=== PATIENT | male | born 1970 | race Caucasian/White ===

== ENCOUNTER → 2020-06-15 08:30 | Outpatient (BNVA) | payer OTHER, SELFPAY | PROVIDERS: PCP Physician Assistant; Visit Provider Nurse Practitioner | DX: K70.0 Alcoholic fatty liver (principal); K21.9 Gastro-esophageal reflux disease without esophagitis; K59.04 Chronic idiopathic constipation; R14.0 Abdominal distension (gaseous) | CPT/HCPCS: 99212 ==

== ENCOUNTER 2020-06-30 08:58 | Outpatient (REF) | payer OTHER, SELFPAY ==
[2020-06-30 10:01] LABS: Hematocrit 43.1 % (42-52); Mean Corpuscular HGB Conc 32.5 g/dl (31.0-36.0); Mean Corpuscular Hemoglobin 28.6 pg (27.0-33.0); Mean Platelet Volume 10.2 fL (9.4-12.4); Platelet Count 301 X10*3/uL (160-400); Red Cell Distribution Width 14.9 % (11.0-16.0); White Blood Count 6.7 X10*3/uL (4.8-10.8)
[2020-06-30 10:07] LABS: Alanine Aminotransferase 41 U/L (0-40); Albumin Level 4.3 g/dL (3.5-5.0); Alkaline Phosphatase 84 U/L (39-117); Anion Gap 13 (12-20); Aspartate Amino Transferase 23 U/L (5-37); Bilirubin Direct 0.2 mg/dL (0.0-0.5); Bilirubin Total 0.6 mg/dL (0.0-1.0); Blood Urea Nitrogen 16 mg/dL (9-16); Calcium 9.1 mg/dL (8.4-10.2); Carbon Dioxide 28 mmol/L (22-29); Chloride 101 mmol/L (96-108); Cholesterol 186 mg/dL; Estimated Glomerular Filt Rate > 60; Glucose Fasting 102 mg/dL (60-99); HDL Cholesterol 41 mg/dL; LDL Cholesterol Calculated 110 mg/dl; Potassium 4.3 mmol/L (3.3-5.1); Sodium 138 mmol/L (135-145); Total Protein 6.9 g/dL (6.5-8.0); Triglycerides 177 mg/dL
[2020-06-30 10:08] LABS: Estimated Average Glucose 123 mg/dL; Hemoglobin A1c % 5.9 %
[2020-06-30 10:27] LABS: TSH reflex Free T4 0.75 uIU/mL (0.32-4.0)
[2020-06-30 10:51] LABS: Creatinine Urine 114.91 mg/dL; Microalbumin Urine < 5.0 mg/L
[2020-07-01 12:32] LABS: Alpha Fetoprotein 3.2 ng/mL (<6.1)
== END 2020-06-30 08:59 | disposition home or self-care (01) ==
LOC: HO.LAB 08:58
PROVIDERS: PCP Physician Assistant; Referring Provider Nurse Practitioner; Visit Provider Physician Assistant
DX: K70.0 Alcoholic fatty liver (principal); I10 Essential (primary) hypertension
CPT/HCPCS: 36415; 80053; 80061; 80076; 82043; 82105; 82248; 83036; 84443; 85027

== ENCOUNTER → 2020-07-30 12:52 | Outpatient (BNVA) | payer OTHER, SELFPAY | PROVIDERS: PCP Physician Assistant; Visit Provider Nurse Practitioner Family | DX: M47.27 Other spondylosis with radiculopathy, lumbosacral region (principal); G89.29 Other chronic pain | CPT/HCPCS: 99202 ==

== ENCOUNTER 2020-08-02 08:30 | Outpatient (REF) | payer OTHER, SELFPAY | END 2020-08-02 08:31 | disposition home or self-care (01) | LOC: HO.LAB 08:30 | PROVIDERS: PCP Physician Assistant; Visit Provider Nurse Practitioner Family | DX: Z13.89 Encounter for screening for other disorder (principal) ==

== ENCOUNTER → 2020-08-27 11:30 | Outpatient (BNVA) | payer OTHER, SELFPAY | PROVIDERS: PCP Physician Assistant; Visit Provider Nurse Practitioner Family | DX: M47.27 Other spondylosis with radiculopathy, lumbosacral region (principal); G89.29 Other chronic pain | CPT/HCPCS: 99212 ==

== ENCOUNTER 2020-09-02 08:46 | Outpatient (REF) | payer OTHER, SELFPAY ==
--- NOTE | ~2020-09-02 | XR_ITS ---
EXAMINATION: BILATERAL HIP X-RAY CLINICAL INFORMATION: Bilateral hip pain COMPARISON: None TECHNIQUE: 2 views of each hip FINDINGS: Bone alignment is normal. No fracture or dislocation is seen. The joint spaces are normal. Soft tissues are normal. XR/XR hip LT min 2V IMPRESSION: Normal hips.
--- NOTE | ~2020-09-02 | XR_ITS ---
EXAMINATION: BILATERAL HIP X-RAY CLINICAL INFORMATION: Bilateral hip pain COMPARISON: None TECHNIQUE: 2 views of each hip FINDINGS: Bone alignment is normal. No fracture or dislocation is seen. The joint spaces are normal. Soft tissues are normal. XR/XR hip RT min 2V IMPRESSION: Normal hips.
== END 2020-09-02 08:47 | disposition home or self-care (01) ==
LOC: HO.XRAY 08:46
PROVIDERS: PCP Physician Assistant; Visit Provider Nurse Practitioner Family
DX: M25.551 Pain in right hip (principal); M25.552 Pain in left hip
CPT/HCPCS: 73502

== ENCOUNTER 2020-09-10 08:28 | Outpatient (REF) | payer OTHER, SELFPAY ==
--- NOTE | ~2020-09-10 | US_ITS ---
EXAMINATION: US ABDOMEN COMPLETE CLINICAL INFORMATION: Alcoholic fatty liver. COMPARISON: Ultrasound abdomen complete 11/12/2019. CT abdomen and pelvis 03/11/2019. Ultrasound abdomen limited 03/03/2019. TECHNIQUE: Real-time imaging of the abdominal viscera. Technically limited study secondary to body habitus. FINDINGS: PANCREAS: Normal. ABDOMINAL AORTA: Not well visualized. INFERIOR VENA CAVA: Visualized portions are normal. LIVER: Liver echotexture is increased probably representing fatty infiltration. The liver is normal in size. The liver contour is normal. There is a 1.8 x 1.2 x 2.1 cm cyst in the right lobe of the liver that is stable. No other focal liver lesion is seen. There is no intrahepatic biliary duct dilatation seen. GALLBLADDER: Normal. The gallbladder is physiologically distended without evidence of stones, sludge, polyps, wall thickening or pericholecystic fluid. COMMON BILE DUCT: Normal in caliber measuring 0.4 cm in diameter. RIGHT KIDNEY: Normal. No hydronephrosis. No renal calculi or focal parenchymal lesions. The kidney measures 12.9 cm in maximum dimension. LEFT KIDNEY: Normal. No hydronephrosis. No renal calculi or focal parenchymal lesions. The kidney measures 12.4 cm in maximum dimension. SPLEEN: Normal. The spleen measures 9.2 cm in maximum dimension. The previously identified hyperechoic lesion in the spleen on prior ultrasound is not appreciated. FREE FLUID: None. US/US abdomen complete IMPRESSION: Echogenic liver suggestive of fatty infiltration. Small liver cyst. Limited visualization of the aorta.
== END 2020-09-10 08:29 | disposition home or self-care (01) ==
LOC: HO.HMGCX 08:28
PROVIDERS: Visit Provider Nurse Practitioner
DX: M47.27 Other spondylosis with radiculopathy, lumbosacral region (principal); M53.3 Sacrococcygeal disorders, not elsewhere classified; G89.29 Other chronic pain; K70.0 Alcoholic fatty liver
CPT/HCPCS: 76700; 99212

== ENCOUNTER → 2020-10-08 09:25 | Outpatient (BNVA) | payer OTHER, SELFPAY | PROVIDERS: PCP Physician Assistant; Visit Provider Nurse Practitioner Family | DX: M47.27 Other spondylosis with radiculopathy, lumbosacral region (principal); M53.3 Sacrococcygeal disorders, not elsewhere classified; G89.29 Other chronic pain | CPT/HCPCS: 99212 ==

== ENCOUNTER → 2020-11-09 08:58 | Outpatient (BNVA) | payer OTHER, SELFPAY | PROVIDERS: PCP Physician Assistant; Visit Provider Nurse Practitioner Family | DX: Z51.81 Encounter for therapeutic drug level monitoring (principal); M47.27 Other spondylosis with radiculopathy, lumbosacral region; M53.3 Sacrococcygeal disorders, not elsewhere classified; G89.29 Other chronic pain | CPT/HCPCS: 99212 ==

== ENCOUNTER 2020-11-16 06:37 | Outpatient (REF) | payer OTHER, SELFPAY ==
--- NOTE | ~2020-11-16 | FL_ITS ---
EXAMINATION: XR FLUOROSCOPY WITH IMAGES CLINICAL INFORMATION: M53.3 - Sacrococcygeal disorders, not elsewhere classified COMPARISON: None. TECHNIQUE: Fluoroscopy performed by Dr. Dennis Cifuentes. Fluoroscopy time: 0.2 minutes DAP: 5.47 Gycm2 Images: 2 FINDINGS: There are spinal needles overlying the lower aspect both sacroiliac joints. There is contrast seen in the soft tissues and likely early intra-articular contrast on each side. FL/FL guidance in treatment room IMPRESSION: Fluoroscopy for pain management procedures.
== END 2020-11-16 06:38 | disposition home or self-care (01) ==
LOC: HO.RADIR 06:37
PROVIDERS: Visit Provider Anesthesiology
DX: M53.3 Sacrococcygeal disorders, not elsewhere classified (principal); M47.27 Other spondylosis with radiculopathy, lumbosacral region; G89.29 Other chronic pain; F17.210 Nicotine dependence, cigarettes, uncomplicated
CPT/HCPCS: 27096; J3300; Q9967

== ENCOUNTER → 2020-11-29 10:53 | Outpatient (BNVA) | payer OTHER, SELFPAY | PROVIDERS: PCP Physician Assistant; Referring Provider Physician Assistant; Visit Provider Physician Assistant | DX: Z01.818 Encounter for other preprocedural examination (principal); E66.01 Morbid (severe) obesity due to excess calories; I10 Essential (primary) hypertension; E78.5 Hyperlipidemia, unspecified; G47.33 Obstructive sleep apnea (adult) (pediatric); K21.9 Gastro-esophageal reflux disease without esophagitis; F10.21 Alcohol dependence, in remission; F17.210 Nicotine dependence, cigarettes, uncomplicated; Z68.41 Body mass index [BMI] 40.0-44.9, adult; Z88.8 Allergy status to other drugs, medicaments and biological substances | CPT/HCPCS: 99202 ==

== ENCOUNTER → 2020-12-07 08:45 | Outpatient (BNVA) | payer OTHER, SELFPAY | PROVIDERS: PCP Physician Assistant; Visit Provider Nurse Practitioner Family | DX: Z51.81 Encounter for therapeutic drug level monitoring (principal); M47.27 Other spondylosis with radiculopathy, lumbosacral region; M53.3 Sacrococcygeal disorders, not elsewhere classified; G89.29 Other chronic pain | CPT/HCPCS: 99212 ==

== ENCOUNTER 2020-12-14 | Outpatient (REF) | payer OTHER, SELFPAY ==
[2020-12-15 11:04] LABS: H Pylori Breath Test Negative (Negative)
== END 2020-12-14 00:01 | disposition home or self-care (01) ==
LOC: HO.LNP
PROVIDERS: Visit Provider Physician Assistant
DX: Z11.0 Encounter for screening for intestinal infectious diseases (principal)
CPT/HCPCS: 83013

== ENCOUNTER → 2020-12-14 09:48 | Outpatient (REF) | payer OTHER, SELFPAY ==
--- NOTE | ~2020-12-14 | XR_ITS ---
EXAMINATION: XR CHEST CLINICAL INFORMATION: Morbid/severe obesity due to excess calories. COMPARISON: None TECHNIQUE: 2 views of the chest were obtained. FINDINGS: The lungs are well-expanded and clear. The heart size and pulmonary vascularity is normal. No gross bony abnormality seen. XR/XR chest 2V IMPRESSION: Unremarkable chest exam.
--- NOTE | 2020-12-14 10:48 | ECG_ITS ---
Test Reason : E66.01 Blood Pressure : / mmHG Vent. Rate : 076 BPM Atrial Rate : 076 BPM P-R Int : 164 ms QRS Dur : 084 ms QT Int : 398 ms P-R-T Axes : 058 049 052 degrees QTc Int : 447 ms Normal sinus rhythm Normal ECG No previous ECGs available Referred By: Isi Felipe Electronically Signed By:LORE CARRASCO
== END ==
LOC: HO.CARD 09:48
PROVIDERS: PCP Physician Assistant; Referring Provider Physician Assistant; Visit Provider Physician Assistant
DX: Z01.818 Encounter for other preprocedural examination (principal); Z11.0 Encounter for screening for intestinal infectious diseases; E66.01 Morbid (severe) obesity due to excess calories
CPT/HCPCS: 71046; 93005; 99211

== ENCOUNTER 2020-12-15 08:53 | Outpatient (REF) | payer OTHER, SELFPAY ==
[2020-12-15 09:21] LABS: MANUAL DIFF FLAG NO
[2020-12-15 09:51] LABS: Basophils Percent Auto 0.1 % (0-2); Eosinophils Absolute Auto 0.1 X10*3/uL (0.0-0.4); Eosinophils Percent Auto 1.5 % (0-4); Hematocrit 42.6 % (42-52); Hemoglobin 13.8 g/dl (14.0-18.0); Imm Gran Abs Auto 0.04 X10*3/uL (0.00-0.03); Imm Gran Pct Auto 0.5 % (0.0-0.4); Lymphocytes Absolute Auto 1.8 X10*3/uL (1.2-4.9); Lymphocytes Percent Auto 24.1 % (20-40); Mean Corpuscular HGB Conc 32.4 g/dl (31.0-36.0); Mean Corpuscular Hemoglobin 28.3 pg (27.0-33.0); Mean Corpuscular Volume 87.3 fL (80-98); Monocytes Absolute Auto 0.6 X10*3/uL (0.1-1.2); Monocytes Percent Auto 8.2 % (2-11); Neutrophils Absolute Auto 4.9 X10*3/uL (2.0-8.3); Neutrophils Percent Auto 65.6 % (45-73); Platelet Count 298 X10*3/uL (160-400); Red Blood Count 4.88 X10*6/uL (4.60-5.80); Red Cell Distribution Width 14.7 % (11.0-16.0); White Blood Count 7.5 X10*3/uL (4.8-10.8)
[2020-12-15 10:11] LABS: Alanine Aminotransferase 36 U/L (0-40); Albumin Level 4.4 g/dL (3.5-5.0); Alkaline Phosphatase 104 U/L (39-117); Anion Gap 13 (12-20); Aspartate Amino Transferase 20 U/L (5-37); Bilirubin Total 0.4 mg/dL (0.0-1.0); Blood Urea Nitrogen 16 mg/dL (9-16); C Reactive Protein 1.88 mg/dL (< or = 0.50); Calcium 9.5 mg/dL (8.4-10.2); Carbon Dioxide 29 mmol/L (22-29); Chloride 103 mmol/L (96-108); Cholesterol 222 mg/dL; Estimated Glomerular Filt Rate > 60; Glucose Fasting 107 mg/dL (60-99); HDL Cholesterol 40 mg/dL; Iron 45 mcg/dL (45-160); LDL Cholesterol Calculated 133 mg/dl; Percent Iron Saturation 10 % (15-50); Potassium 5.1 mmol/L (3.3-5.1); Sodium 140 mmol/L (135-145); Total Iron Binding Capacity 430 mcg/dL (228-428); Total Protein 7.2 g/dL (6.5-8.0); Triglycerides 246 mg/dL; Unsaturated Iron Binding 385 ug/dL
[2020-12-15 10:33] LABS: Creatinine Urine 154.51 mg/dL; Microalbum/Creatinine Ratio Ur 3.2 ug/mg cr
[2020-12-15 10:33] LABS: TSH reflex Free T4 0.83 uIU/mL (0.32-4.0); Vitamin D 25-OH Total 26.9 ng/mL (>30)
[2020-12-15 10:37] LABS: Folate 8.7 ng/mL (> or = 4.0); Vitamin B12 297 pg/mL (200-900)
[2020-12-15 10:45] LABS: Estimated Average Glucose 126 mg/dL; Hemoglobin A1C 150.5981 umol/L
[2020-12-15 11:24] LABS: Ferritin 31 ng/mL (20-250)
[2020-12-17 12:50] LABS: Calcium (PTHI) 9.3 mg/dL (8.6-10.3); PTHI 53 pg/mL (14-64)
[2020-12-19 00:27] LABS: Zinc 70 mcg/dL (60-130)
[2020-12-20 10:42] LABS: Vitamin B1 <6 nmol/L (8-30)
[2020-12-22 04:36] LABS: Vitamin A 47 mcg/dL (38-98)
== END 2020-12-15 08:54 | disposition home or self-care (01) ==
LOC: HO.LAB 08:53
PROVIDERS: PCP Physician Assistant; Visit Provider Physician Assistant
DX: Z01.818 Encounter for other preprocedural examination (principal); E66.01 Morbid (severe) obesity due to excess calories; I10 Essential (primary) hypertension; R73.09 Other abnormal glucose
CPT/HCPCS: 36415; 80053; 80061; 82043; 82306; 82607; 82728; 82746; 83036; 83540; 83970; 84425; 84443; 84590; 84630; 85025; 86140

== ENCOUNTER → 2020-12-17 10:18 | Outpatient (BNVA) | payer OTHER, SELFPAY | PROVIDERS: PCP Physician Assistant; Referring Provider Physician Assistant; Visit Provider Physician Assistant | DX: E66.01 Morbid (severe) obesity due to excess calories (principal) | CPT/HCPCS: 99212 ==

== ENCOUNTER → 2020-12-27 13:54 | Outpatient (BNVA) | payer OTHER, SELFPAY | PROVIDERS: PCP Physician Assistant; Visit Provider Anesthesiology | DX: M47.27 Other spondylosis with radiculopathy, lumbosacral region (principal); G89.29 Other chronic pain; M53.3 Sacrococcygeal disorders, not elsewhere classified; E66.9 Obesity, unspecified; F17.200 Nicotine dependence, unspecified, uncomplicated; Z68.41 Body mass index [BMI] 40.0-44.9, adult; Z88.8 Allergy status to other drugs, medicaments and biological substances | CPT/HCPCS: 99212 ==

== ENCOUNTER → 2020-12-28 08:03 | Outpatient (BNVA) | payer OTHER, SELFPAY | PROVIDERS: PCP Physician Assistant; Visit Provider Physician Assistant | DX: E66.01 Morbid (severe) obesity due to excess calories (principal); F17.200 Nicotine dependence, unspecified, uncomplicated | CPT/HCPCS: 97802 ==

== ENCOUNTER 2021-01-04 09:53 | Outpatient (REF) | payer OTHER, SELFPAY ==
--- NOTE | ~2021-01-04 | FL_ITS ---
EXAMINATION: XR GI SERIES CLINICAL INFORMATION: Obesity COMPARISON: None TECHNIQUE: Upper GI was performed using thin and thick barium and effervescent granules. FINDINGS: Esophageal motility is normal. There is mild gastroesophageal reflux. No hernia seen. The stomach and duodenum are normal-appearing. No fold thickening, mass, ulcer or stricture is seen. FLUOROSCOPY TIME: 0.7 minutes DOSE AREA PRODUCT: 9.3 denis per centimeter squared. 23 saved fluoroscopic images. FL/FL upper GI series IMPRESSION: Mild gastroesophageal reflux otherwise unremarkable exam.
--- NOTE | ~2021-01-04 | US_ITS ---
EXAMINATION: US COMPLETE ABDOMEN WITH LIVER ELASTOGRAPHY CLINICAL INFORMATION: Obesity. COMPARISON: 09/10/2020 and 11/12/[address] scan of 03/11/2019 TECHNIQUE: Real-time imaging of the abdominal viscera. Noninvasive ultrasound liver fibrosis assessment is performed using Jayna ElastPQ point quantification shear wave elastography (pSWE) with a C5-2 MHz transducer. Multiple elastography samples are obtained. FINDINGS: PANCREAS: Normal. The visualized pancreatic head and body are normal in appearance. The remainder of the pancreas is obscured from visualization by the overlying bowel gas. ABDOMINAL AORTA: The visualized portions of the proximal, middle, and distal aortic segments are normal in caliber. INFERIOR VENA CAVA: Visualized portions are normal. LIVER: There is diffusely increased echogenicity consistent with fatty infiltration. Within the right lobe of the liver, there is a 2.2 x 1.4 x 2.0 cm hypoechoic structure without internal vascularity which on previous study measured 2.1 cm in largest dimension likely representing a cyst. No intrahepatic biliary duct dilatation. The right lobe measures 19 cm in length. The left lobe measures 9.5 cm in length. Portal flow is hepatopedal. Shear wave liver elastography median stiffness is 1.17 m/s (reference: normal median stiffness is 1.3 m/s or less). IQR/median stiffness to assess sampling precision is 0.16 (reference: good quality data set is IQR/median stiffness of 0.15 or less). GALLBLADDER: Normal. The gallbladder is physiologically distended without evidence of stones, sludge, polyps, wall thickening or pericholecystic fluid. COMMON BILE DUCT: Normal in caliber measuring 0.5 cm in diameter. RIGHT KIDNEY: Normal. No hydronephrosis. No renal calculi or focal parenchymal lesions. The kidney measures 12.7 cm in maximum dimension. LEFT KIDNEY: There are some echogenic foci seen bilaterally likely related to calcified vessels/vessel interface. No hydronephrosis. No focal parenchymal lesions. The kidney measures 11.7 cm in maximum dimension. SPLEEN: Normal. The spleen measures 9.1 cm in maximum dimension. FREE FLUID: None. US/US abdomen comp w elastography IMPRESSION: 1. Hepatic cyst. Diffusely increased hepatic echogenicity consistent with fatty infiltration. 2. Liver elastography: Although measurements suggest a high probability of normal liver stiffness, there is statistical variability of the sampling which decreases accuracy. REFERENCE: Society of Radiologists in Ultrasound Liver Stiffness Thresholds (2020): LIVER STIFFNESS THRESHOLDS: *Liver Stiffness equal or less than 1.3 m/s: High probability of being normal. *Liver Stiffness less than 1.7 m/s: In the absence of other known clinical signs, rules out compensated advanced chronic liver disease. *Liver Stiffness 1.7-2.1 m/s: Suggestive of compensated advanced chronic liver disease but need further test for confirmation. *Liver Stiffness over 2.1 m/s: Rules in compensated advanced chronic liver disease. *Liver Stiffness over 2.4 m/s: Suggestive of clinically significant portal hypertension. QUALITY OF DATA SET: *IQR/Median value equal or less than 0.15 implies a quality data set. *IQR/Median value over 0.15 implies a poor quality data set. SIGNIFICANT CHANGE FROM PRIOR EXAM: Significant change if liver stiffness measurement is 10% or greater from prior exam. OTHER CONSIDERATIONS: The stage of liver fibrosis may be overestimated in the setting of acute hepatitis, liver inflammation, elevated liver function tests, hepatic vascular congestion, obstructive cholestasis, non-fasting state, and infiltrative diseases such as amyloidosis and lymphoma. In some patients with NAFLD, the liver stiffness thresholds for compensated advanced chronic liver disease may be lower. In causes other than viral hepatitis and NAFLD, liver stiffness thresholds are not well established.
== END 2021-01-04 09:54 | disposition home or self-care (01) ==
LOC: HO.US 09:53
PROVIDERS: Visit Provider Surgery
DX: Z01.818 Encounter for other preprocedural examination (principal); E66.01 Morbid (severe) obesity due to excess calories; K21.9 Gastro-esophageal reflux disease without esophagitis
CPT/HCPCS: 74240; 76705; 76981

== ENCOUNTER → 2021-01-05 08:03 | Outpatient (BNVA) | payer OTHER, SELFPAY | PROVIDERS: PCP Physician Assistant; Visit Provider Surgery ==

== ENCOUNTER → 2021-01-11 08:01 | Outpatient (BNVA) | payer OTHER, SELFPAY | PROVIDERS: PCP Physician Assistant; Referring Provider Surgery; Visit Provider Dietitian, Registered | DX: E66.01 Morbid (severe) obesity due to excess calories (principal) | CPT/HCPCS: 97803 ==

== ENCOUNTER → 2021-01-17 08:03 | Outpatient (BNVA) | payer OTHER, SELFPAY | PROVIDERS: PCP Physician Assistant; Visit Provider Physician Assistant ==

== ENCOUNTER → 2021-01-19 08:35 | Outpatient (BNVA) | payer OTHER, SELFPAY | PROVIDERS: PCP Physician Assistant; Referring Provider Physician Assistant; Visit Provider Physician Assistant Surgical ==

== ENCOUNTER → 2021-01-24 11:34 | Outpatient (BNVA) | payer OTHER, SELFPAY | PROVIDERS: Visit Provider Anesthesiology ==

== ENCOUNTER 2021-02-01 06:40 | Outpatient (REF) | payer OTHER, SELFPAY ==
--- NOTE | ~2021-02-01 | FL_ITS ---
EXAMINATION: XR FLUOROSCOPY WITH IMAGES CLINICAL INFORMATION: M47.27 - Other spondylosis with radiculopathy, lumbosacral. COMPARISON: None. TECHNIQUE: Fluoroscopy performed by Dr. Dennis Cifuentes. Fluoroscopy time: 0.4 minutes DAP: 10.1 Gycm2 Images: 4 FINDINGS: There are spinal needles overlying the outer right L2, L3, L4, and L5 neural foramen. There is contrast seen in the respective nerve sheaths. Some early transforaminal epidural extension is suggested. No visible vascular communication. FL/FL guidance in treatment room IMPRESSION: Fluoroscopy for pain management procedures.
== END 2021-02-01 06:41 | disposition home or self-care (01) ==
LOC: HO.RADIR 06:40
PROVIDERS: Visit Provider Anesthesiology
DX: M47.27 Other spondylosis with radiculopathy, lumbosacral region (principal); G89.29 Other chronic pain; M53.3 Sacrococcygeal disorders, not elsewhere classified; F17.210 Nicotine dependence, cigarettes, uncomplicated
CPT/HCPCS: 64493; 64494; 64495; Q9967

== ENCOUNTER → 2021-02-02 08:15 | Outpatient (BNVA) | payer OTHER, SELFPAY | PROVIDERS: Visit Provider Surgery ==

== ENCOUNTER → 2021-02-09 08:32 | Outpatient (BNVA) | payer OTHER, SELFPAY | PROVIDERS: Visit Provider Anesthesiology | DX: M47.27 Other spondylosis with radiculopathy, lumbosacral region (principal); M53.3 Sacrococcygeal disorders, not elsewhere classified; G89.29 Other chronic pain | CPT/HCPCS: 99212 ==

== ENCOUNTER → 2021-02-10 08:05 | Outpatient (BNVA) | payer OTHER, SELFPAY | PROVIDERS: Referring Provider Surgery; Visit Provider Dietitian, Registered | DX: E66.9 Obesity, unspecified (principal) | CPT/HCPCS: 97803 ==

== ENCOUNTER → 2021-02-11 07:23 | Outpatient (BNVA) | payer OTHER, SELFPAY | PROVIDERS: Visit Provider Surgery ==

== ENCOUNTER → 2021-02-23 10:06 | Outpatient (BNVA) | payer OTHER, SELFPAY | PROVIDERS: Visit Provider Anesthesiology | DX: Z51.81 Encounter for therapeutic drug level monitoring (principal); M47.27 Other spondylosis with radiculopathy, lumbosacral region; M53.3 Sacrococcygeal disorders, not elsewhere classified; G89.29 Other chronic pain | CPT/HCPCS: 99212 ==

== ENCOUNTER 2021-03-01 14:10 | Outpatient (REF) | payer OTHER, SELFPAY | END 2021-03-01 14:11 | disposition home or self-care (01) | LOC: HO.LNP 14:10 | PROVIDERS: Visit Provider Nurse Practitioner Family | DX: U07.1 COVID-19 (principal); Z20.822 Contact with and (suspected) exposure to COVID-19 | CPT/HCPCS: U0003; U0005 ==

== ENCOUNTER → 2021-03-17 08:20 | Outpatient (BNVA) | payer OTHER, SELFPAY | PROVIDERS: Visit Provider Anesthesiology | DX: Z51.81 Encounter for therapeutic drug level monitoring (principal); M47.27 Other spondylosis with radiculopathy, lumbosacral region; G89.29 Other chronic pain; M53.3 Sacrococcygeal disorders, not elsewhere classified | CPT/HCPCS: 99212 ==

== ENCOUNTER → 2021-03-18 07:35 | Outpatient (BNVA) | payer OTHER, SELFPAY | PROVIDERS: PCP Internal Medicine; Visit Provider Surgery ==

== ENCOUNTER → 2021-03-24 09:13 | Outpatient (BNVA) | payer OTHER, SELFPAY | PROVIDERS: PCP Internal Medicine; Referring Provider Internal Medicine; Visit Provider Physician Assistant Surgical ==

== ENCOUNTER → 2021-04-15 08:06 | Outpatient (BNVA) | payer OTHER, SELFPAY | PROVIDERS: PCP Internal Medicine; Visit Provider Surgery ==

== ENCOUNTER 2021-05-03 06:00 | Outpatient (REF) | payer OTHER, SELFPAY ==
--- NOTE | ~2021-05-03 | FL_ITS ---
EXAMINATION: XR FLUOROSCOPY WITH IMAGES CLINICAL INFORMATION: Spondylosis with radiculopathy. COMPARISON: None. TECHNIQUE: Fluoroscopy performed by Nina Redman. Fluoroscopy time: 0.9 minutes DAP: 19.6 Gycm2 Images: 8 FINDINGS: There are needles positioned bilaterally adjacent to L5-S1, L4-L5 and L3-L4 facet joints with contrast opacifying the soft tissues. Visualized vertebral heights, alignment appears normal. The disc heights are preserved. No lytic or sclerotic process seen. FL/FL guidance in treatment room IMPRESSION: Fluoroscopy was provided to referring physician for pain management.
== END 2021-05-03 06:01 | disposition home or self-care (01) ==
LOC: HO.RADIR 06:00
PROVIDERS: Visit Provider Anesthesiology
DX: M47.27 Other spondylosis with radiculopathy, lumbosacral region (principal); G89.29 Other chronic pain; M53.3 Sacrococcygeal disorders, not elsewhere classified
CPT/HCPCS: 64493; 64494; 64495; Q9967

== ENCOUNTER → 2021-05-09 16:40 | Outpatient (BNVA) | payer OTHER, SELFPAY | PROVIDERS: PCP Internal Medicine; Visit Provider Anesthesiology ==

== ENCOUNTER → 2021-05-13 08:09 | Outpatient (BNVA) | payer OTHER, SELFPAY | PROVIDERS: PCP Internal Medicine; Visit Provider Surgery ==

== ENCOUNTER → 2021-05-19 08:45 | Outpatient (BNVA) | payer OTHER, SELFPAY | PROVIDERS: PCP Internal Medicine; Visit Provider Anesthesiology | DX: G89.29 Other chronic pain (principal); M53.3 Sacrococcygeal disorders, not elsewhere classified; M47.27 Other spondylosis with radiculopathy, lumbosacral region; Z79.891 Long term (current) use of opiate analgesic | CPT/HCPCS: 99212 ==

== ENCOUNTER 2021-06-07 08:41 | Day surgery (SDC) | payer OTHER, SELFPAY ==
--- NOTE | ~2021-06-07 | FL_ITS ---
EXAMINATION: XR FLUOROSCOPY WITH IMAGES CLINICAL INFORMATION: Medial branch RFA. COMPARISON: None. TECHNIQUE: Fluoroscopy performed by Dr. Dennis Cifuentes. Fluoroscopy time: 0.9 minutes DAP: 6.94 mGycm2 Images: 3 FINDINGS: There are needles placed on the right aspect of right L3, L4, L5 and S1 pedicles for pain management purposes. Visualized bones and the intervening disc heights are maintained normal. FL/FL guidance in OR IMPRESSION: Fluoroscopy guidance was provided to referring physician for pain management.
--- NOTE | 2021-06-08 07:40 | P.HPSUR_ITS ---
Pre-Procedural Eval Section A Date of Service: 06/08/21 The patient is an INPATIENT: No Changes since office visit: Yes Patient answered all questions The History & Physical has been completed within 30 days and I have reviewed it.: No Section B Chief Complaint: Other spondylosis with radiculopathy, lumbosacral Details of Present Illness: As above Relevant Family History (Specify if Yes): No Relevant Social History: None Present Medications: see Short Stay Collaborative assessment Medical History: No relevant PMH History of Previous Operations: No relevant previous surgery Allergies: Allergies Allergy/AdvReac Type Severity Reaction Status Date / Time dexamethasone Allergy Unknown vomitting Verified 05/09/21 16:41 Review of Systems Sugical H&P ROS: Negative: Cardiovascular, Respiratory, Neurological, Psychiatric, Hem-Onc, Allergic/Immunologic, Gastrointestinal, Genitourinary, Integumentary, Endocrine and Eyes/Ears/Nose/Throat and Yes, Specify: Constitu tion (Morbid obesity) and Musculoskeletal (As above) Exam Surgical H&P Exam: Normal: HEENT, Normal: Heart, Normal: Lungs, Normal: Extremities, Normal: Skin and Normal: Neurological and Significant Findings: Abdomen (Enlarged secondary to obesity) Plan Diagnosis/Plan: Unchanged I have reviewed the history and physical and performed a pertinent physical examination on my patient. No changes have occurred unless specified.
--- NOTE | 2021-06-08 07:44 | P.BOP_ITS ---
Brief Operative Note Date of Service: 06/07/21 Pre-op diagnosis: Spondylosis lumbar spine Post-op diagnosis: same Procedure: Radiofrequency ablation L2-L3 L4 dorsal ramus L5 medial branch nerves on the right Implants: None Surgeon: Dennis Cifuentes MD Anesthesia: local Was an Supervisor Laundry used for this Procedure?: No Estimated blood loss (mL): 0 Pathology: none sent Condition: stable Disposition: other (Through the office discharge system)
--- NOTE | 2021-06-08 07:46 | P.OP_ITS ---
Operative Note Operative Note Date of Service: 06/07/21 Narrative: Radiofrequency ablation L2-L3 L4 dorsal ramus L5 medial branches on the right. Informed consent was explained to the patient. All questions were explained and answered.? The patient was taken inside of the operating room where she was positioned prone on the operating table.? Time-out was performed delineating patient's name and date of , correct site, side, the nature of the procedur e, patient's allergy, preoperative antibiotic if needed.? All operating room staff was participating in OR time-out procedure.? His lower back was prepped with ChloraPrep and draped with sterile towels.? Sterilely draped C-arm was brought over the operating field and sq picture of L3, L4-, L5 vertebra as and S1 vertebra were delineated on the screen.? Points of interest were delineated as connection of superior articular process of L3, L4 and L5 vertebra on the right with corresponding transverse processes as well as connection of the sacral alae on the right with superior articular process of S1.? The projection of the point of interest to the skin were injected with the small amount of local anesthetic lidocaine 2% 1-1.5 cc.? And after that 18 gauge 145 mm radiofrequency cannulas were driven to the point of interest in tunnel vision fashion under oblique view with solution strategist of the C-arm tilted 5? to the feet.? After needles gently contacted the bone at the point of interests the sty lets were removed from the needles and electrodes were inserted into the needles.? Electrodes were connected to the radiofrequency machine and testing was performed for the patient's sensory and motor function.? There were no pathological motor response indicating stimulation of somatic nerves.? After that electrodes were removed and each needle was injected with small amount of bupivacaine 0.5% 1-1.5 cc mixed with trace amount of Kenalog.? Upon completion of the injections the electrodes were reinserted and energy of 80 degree centigrade for 90 seconds was applied to each needle.? Upon completion of the energy application the needles were rotated 180? and energy applied with the same temperature and with the same time.? Upon completion of the injections needles were removed and sterile dressings were applied, patient taken outside of the operating room to recovery room where he recovered uneventfully.
== END 2021-06-07 09:00 | disposition home or self-care (01) ==
PROVIDERS: PCP Physician Assistant; Visit Provider Anesthesiology
PROC: (CPT 64635; principal; 2021-06-07 07:30)
DX: M47.817 Spondylosis without myelopathy or radiculopathy, lumbosacral region (principal)
CPT/HCPCS: 64635; 64636; J3300

== ENCOUNTER → 2021-06-13 08:09 | Outpatient (BNVA) | payer OTHER, SELFPAY | PROVIDERS: PCP Internal Medicine; Visit Provider Surgery | DX: E66.01 Morbid (severe) obesity due to excess calories (principal); Z68.37 Body mass index [BMI] 37.0-37.9, adult; G89.29 Other chronic pain; M53.3 Sacrococcygeal disorders, not elsewhere classified; M47.27 Other spondylosis with radiculopathy, lumbosacral region; Z79.891 Long term (current) use of opiate analgesic | CPT/HCPCS: 99212 ==

== ENCOUNTER → 2021-06-29 08:05 | Outpatient (BNVA) | payer OTHER, SELFPAY | PROVIDERS: PCP Internal Medicine; Visit Provider Surgery | DX: Z13.89 Encounter for screening for other disorder (principal) ==

== ENCOUNTER → 2021-07-01 13:02 | Outpatient (BNVA) | payer OTHER, SELFPAY | PROVIDERS: PCP Internal Medicine; Visit Provider Surgery | DX: Z13.89 Encounter for screening for other disorder (principal) ==

== ENCOUNTER 2021-07-12 06:22 | Inpatient (IN) | payer OTHER, SELFPAY ==
[2021-07-01 10:17] VITALS: BMI 35.9
[2021-07-07 11:59] LABS: MANUAL DIFF FLAG NO
[2021-07-07 12:38] LABS: Basophils Percent Auto 0.4 % (0-2); Eosinophils Absolute Auto 0.1 X10*3/uL (0.0-0.4); Hematocrit 43.3 % (42.0-52.0); Hemoglobin 14.4 g/dl (14.0-18.0); Imm Gran Abs Auto 0.02 X10*3/uL (0.00-0.03); Imm Gran Pct Auto 0.3 % (0.0-0.4); Lymphocytes Absolute Auto 2.4 X10*3/uL (1.2-4.9); Lymphocytes Percent Auto 33.9 % (20-40); Mean Corpuscular HGB Conc 33.3 g/dl (31.0-36.0); Mean Corpuscular Hemoglobin 29.1 pg (27.0-33.0); Mean Corpuscular Volume 87.7 fL (80.0-98.0); Mean Platelet Volume 9.9 fL (9.4-12.4); Monocytes Absolute Auto 0.6 X10*3/uL (0.1-1.2); Monocytes Percent Auto 8.7 % (2-11); Neutrophils Percent Auto 55.7 % (45-73); Platelet Count 273 X10*3/uL (160-400); Red Blood Count 4.94 X10*6/uL (4.60-5.80); Red Cell Distribution Width 13.3 % (11.0-16.0); White Blood Count 7.2 X10*3/uL (4.8-10.8)
[2021-07-07 12:40] LABS: Prothrombin Time 11.2 SEC (9.9-13.0)
[2021-07-07 12:43] LABS: Partial Thromboplastin Time 37.4 SEC (24.1-38.0)
[2021-07-07 13:07] LABS: Alanine Aminotransferase 24 U/L (0-40); Albumin Level 4.4 g/dL (3.5-5.0); Alkaline Phosphatase 85 U/L (39-117); Anion Gap 14 (12-20); Aspartate Amino Transferase 21 U/L (5-37); Bilirubin Total 0.6 mg/dL (0.0-1.0); Blood Urea Nitrogen 17 mg/dL (9-16); C Reactive Protein 1.59 mg/dL (< or = 0.50); Calcium 9.6 mg/dL (8.4-10.2); Carbon Dioxide 27 mmol/L (22-29); Chloride 100 mmol/L (96-108); Cholesterol 189 mg/dL; Creatinine Clr Calc Pharmacy 111.4; Estimated Glomerular Filt Rate > 60; Glucose Random 89 mg/dL (60-115); HDL Cholesterol 40 mg/dL; LDL Cholesterol Calculated 131 mg/dl; Potassium 3.9 mmol/L (3.3-5.1); Sodium 137 mmol/L (135-145); Triglycerides 93 mg/dL
[2021-07-07 13:19] LABS: Estimated Average Glucose 120 mg/dL; Hemoglobin A1c % 5.8 %
[2021-07-07 13:30] LABS: Insulin 19 uU/mL (2-29); TSH reflex Free T4 1.19 uIU/mL (0.32-4.0)
--- NOTE | 2021-07-09 15:36 | MHC.SHP ---
Pre-Procedural Eval Section A Date of Service: 07/09/21 The patient is an INPATIENT: Yes The History & Physical has been completed within 30 days and I have reviewed it.: No Section B Chief Complaint: obesity Relevant Family History (Specify if Yes): No Relevant Social History: None Present Medications: None Medical History: No relevant PMH History of Previous Operations: No relevant previous surgery Allergies: Allergies Allergy/AdvReac Type Severity Reaction Status Date / Time dexamethasone AdvReac Severe severe Verified 07/01/21 10:16 joint pain (did not wean off) Review of Systems Sugical H&P ROS: Negative: Constitution, Cardiovascular, Respiratory, Neurological, Psychiatric, Hem-Onc, Allergic/Immunologic, Gastrointestinal, Genitourinary, Musculoskeletal, Integumentary, Endocrine and Eyes/Ears/Nose/Throat Exam Surgical H&P Exam: Normal: HEENT, Normal: Heart, Normal: Lungs, Normal: Extremities, Normal: Abdomen, Normal: Skin and Normal: Neurological Plan Diagnosis/Plan: Unchanged I have reviewed the history and physical and performed a pertinent physical examination on my patient. No changes have occurred unless specified.
--- NOTE | 2021-07-11 10:20 | HO.ANESPROP2 ---
Documented by User: Radha Gunter NP 07/11/21 10:22 HPI - Anesthesia Eval Consult details Narrative: 51yo M for Gastrectomy Sleeve,EGD,possible diaphragmatic hernia,possible ventral hernia,possible open Hx ETOH, none since 2018, buprenorphine tx PMFSH Active Problems Active Problems: All Active Problems (Updated 07/01/21 @ 10:15 by Isabel Ngo, RN) Allergic rhinitis (Acute) HLD (hyperlipidemia) (Acute) HTN (hypertension) (Acute) Impaired glucose metabolism (Acute) Lumbar disc disease with radiculopathy (Acute) Chronic idiopathic constipation (Acute) Abdominal bloating (Acute) GERD (gastroesophageal reflux disease) (Acute) Alcoholic fatty liver (Acute) Spondylosis of lumbosacral spine with radiculopathy (Acute) Chronic pain (Acute) Left hip pain (Acute) Right hip pain (Acute) Sacroiliac joint pain (Acute) Otitis media (Acute) Ear discomfort (Acute) Smoker (Acute) Open humeral fracture (Acute) Allergic rhinitis (Acute) Asthma (Acute) BANG on CPAP (Acute) Morbid obesity (Acute) Pre-op evaluation (Acute) Binge eating disorder (Acute) Moderately severe major depressive disorder, single episode (Acute) Non-insulin dependent type 2 diabetes mellitus (Acute) Vitamin B12 deficiency (Acute) SARS-CoV-2 positive (Acute) Exposure to COVID-19 virus (Acute) Loss of sense of smell (Acute) Annual physical exam (Acute) Obese (Acute) BMI 38.0-38.9,adult (Acute) BMI 37.0-37.9, adult (Acute) BMI 36.0-36.9,adult (Acute) Obesity (Acute) Past Medical History Medical History (Updated 07/01/21 @ 10:15 by Isabel Ngo, ANDREA) Alcohol dependence Anxiety Asthma COVID-19 vaccine series completed Depression Elevated cholesterol GERD (gastroesophageal reflux disease) History of COVID-19 Lumbar disc disease Obesity Otitis externa Sleep apnea Type 2 diabetes mellitus Family History Family History Father Hypertension CVD (cardiovascular disease) Mother CVD (cardiovascular disease) Lymph node cancer Lymphoma Sister Arthritis in Crohn's disease Sister Heart disease CVD (cardiovascular disease) Migraine Brother IBS (irritable bowel syndrome) Surgical History Surgical History (Updated 04/22/22 @ 10:13 by Isabel Ngo RN) Fracture of surgical neck of humerus History of umbilical hernia repair Hx of colonoscopy Social History Social History Household Members: Significant Other and Children Housing: Apartment Are you a primary health care coach to a significant other at home: No Do you presently have visiting nurse or other home services: No Alcohol intake: former Year quit: 2018 Patient Tobacco Use Status: Former Tobacco user Quit Date: 02/2021 Tobacco use type: Cigarette Cigarette Packs Per Day: 1 Cigarettes Per Day: 20.0 Years Smoked: 35 e-Cigarette/Vaping Use: Never Used Second Hand Smoke Exposure: No Use of substances other than those prescribed or required for medical reasons: No Have you been hit, kicked, punched, or otherwise hurt by someone within the past year? If so, by whom?: No Are you DNR?: No Advance Directives Information Provided: Yes (as above noted-brochure mailed also) Advance Directives on File: No Recently lost weight without trying: No Eating poorly because of decreased appetite: No Nutrition Risks: No Nutritional Risk Poor oral hygiene: No service: No Current occupational status: unemployed and disabled Cognitive needs: Yes (Cane) Hearing needs: No Vision needs: No Meds Allergies Allergy/AdvReac Type Severity Reaction Status Date / Time dexamethasone AdvReac Severe severe Verified 07/01/21 10:16 joint pain (did not wean off) Home Medications Medication Instructions Recorded Confirmed Last Taken Type buspirone 10 mg tablet 10 mg PO TID tab 07/14/20 07/01/21 07/12/21 History citalopram 40 mg tablet 40 mg PO DAILY 07/14/20 07/01/21 07/12/21 History bupropion HCl 75 mg tablet 150 mg PO DAILY 11/29/20 07/01/21 07/12/21 History metformin 500 mg tablet,extended 500 mg PO QAM 07/01/21 07/01/21 07/12/21 History release 24 hr Exam Exam Date and Time: July 11, 2021 1020 Height,Weight and Vital Signs: Height 6 ft 0.5 in Weight 122.045 kg Pertinent Lab Results Pertinent Lab Results: Laboratory Tests 07/07/21 07/07/21 07/07/21 11:54 11:56 11:56 WBC 7.2 RBC 4.94 Hgb 14.4 Hct 43.3 MCV 87.7 MCH 29.1 MCHC 33.3 RDW 13.3 Plt Count 273 MPV 9.9 Immature Gran % (Auto) 0.3 Neut % (Auto) 55.7 Lymph % (Auto) 33.9 [place] % (Auto) 8.7 Eos % (Auto) 1.0 Baso % (Auto) 0.4 Lymph # (Auto) 2.4 [place] # (Auto) 0.6 Eos # (Auto) 0.1 Baso # (Auto) 0.0 Abs Immat Gran (auto) 0.02 Absolute Neuts (auto) 4.0 Absolute Nucleated RBC 0.000 Nucleated RBC % (auto) 0.0 PT 11.2 INR 1.0 APTT 37.4 Sodium Potassium Chloride Carbon Dioxide Anion Gap BUN Creatinine Estim Creat Clear Calc Estimated GFR Random Glucose Estimat Average Glucose Hemoglobin A1c % Insulin Level Calcium Total Bilirubin AST ALT Alkaline Phosphatase C-Reactive Protein Total Protein Albumin Triglycerides Cholesterol LDL Cholesterol, Calc HDL Cholesterol TSH Blood Type A Positive Antibody Screen NEGATIVE 07/07/21 07/07/21 11:56 11:56 WBC RBC Hgb Hct MCV MCH MCHC RDW Plt Count MPV Immature Gran % (Auto) Neut % (Auto) Lymph % (Auto) [place] % (Auto) Eos % (Auto) Baso % (Auto) Lymph # (Auto) [place] # (Auto) Eos # (Auto) Baso # (Auto) Abs Immat Gran (auto) Absolute Neuts (auto) Absolute Nucleated RBC Nucleated RBC % (auto) PT INR APTT Sodium 137 Potassium 3.9 D Chloride 100 Carbon Dioxide 27 Anion Gap 14 BUN 17 H Creatinine 1.07 Estim Creat Clear Calc 111.4 Estimated GFR > 60 Random Glucose 89 Estimat Average Glucose 120 Hemoglobin A1c % 5.8 Insulin Level 19 Calcium 9.6 Total Bilirubin 0.6 AST 21 ALT 24 Alkaline Phosphatase 85 C-Reactive Protein 1.59 H Total Protein 7.0 Albumin 4.4 Triglycerides 93 Cholesterol 189 LDL Cholesterol, Calc 131 HDL Cholesterol 40 TSH 1.19 Blood Type Antibody Screen Narrative Narrative: EKG 12/2020 Vent. Rate : 076 BPM ? ? Atrial Rate : 076 BPM ?? P-R Int : 164 ms? QRS Dur : 084 ms ? ? QT Int : 398 ms ? ? ? P-R-T Axes : 058 049 052 degrees ?? QTc Int : 447 ms ? Normal sinus rhythm Normal ECG No previous ECGs available Assessment and Plan Assessment Anesthesia Assessment: Chart Reviewed Documented by User: Ramsey James MD 07/12/21 07:08 [facility] Past Medical History Medical History (Updated 07/01/21 @ 10:15 by Isabel Ngo RN) Alcohol dependence Anxiety Asthma COVID-19 vaccine series completed Depression Elevated cholesterol GERD (gastroesophageal reflux disease) History of COVID-19 Lumbar disc disease Obesity Otitis externa Sleep apnea Type 2 diabetes mellitus Family History Family History Father Hypertension CVD (cardiovascular disease) Mother CVD (cardiovascular disease) Lymph node cancer Lymphoma Sister Arthritis in Crohn's disease Sister Heart disease CVD (cardiovascular disease) Migraine Brother IBS (irritable bowel syndrome) Family history of problems with anesthesia: No Surgical History Surgical History (Updated 07/01/21 @ 10:13 by Isabel Ngo RN) Fracture of surgical neck of humerus History of umbilical hernia repair Hx of colonoscopy History of Problems with Anesthesia: No Social History Social History Household Members: Significant Other and Children Housing: Apartment Are you a primary health care coach to a significant other at home: No Do you presently have visiting nurse or other home services: No Alcohol intake: former Year quit: 2018 Patient Tobacco Use Status: Former Tobacco user Quit Date: 02/2021 Tobacco use type: Cigarette Cigarette Packs Per Day: 1 Cigarettes Per Day: 20.0 Years Smoked: 35 e-Cigarette/Vaping Use: Never Used Second Hand Smoke Exposure: No Use of substances other than those prescribed or required for medical reasons: No Have you been hit, kicked, punched, or otherwise hurt by someone within the past year? If so, by whom?: No Are you DNR?: No Advance Directives Information Provided: Yes (as above noted-brochure mailed also) Advance Directives on File: No Recently lost weight without trying: No Eating poorly because of decreased appetite: No Nutrition Risks: No Nutritional Risk Poor oral hygiene: No service: No Current occupational status: unemployed and disabled Cognitive needs: Yes (Cane) Hearing needs: No Vision needs: No Meds Allergies Allergy/AdvReac Type Severity Reaction Status Date / Time dexamethasone AdvReac Severe severe Verified 07/01/21 10:16 joint pain (did not wean off) Home Medications Medication Instructions Recorded Confirmed Last Taken Type buspirone 10 mg tablet 10 mg PO TID tab 07/14/20 07/01/21 07/12/21 History citalopram 40 mg tablet 40 mg PO DAILY 07/14/20 07/01/21 07/12/21 History bupropion HCl 75 mg tablet 150 mg PO DAILY 11/29/20 07/01/21 07/12/21 History metformin 500 mg tablet,extended 500 mg PO QAM 07/01/21 07/01/21 07/12/21 History release 24 hr Exam Airway Mallampati Class: III TM Dist: >3cm Neck ROM: Full Loose/Missing/Broken Teeth: No Heart: rrr+[id number] Lungs: cta b/l Assessment and Plan Assessment Anesthesia Assessment: Anesthesia Plan Discussed Final Anesthetic Review Family History of Problems with Anesthesia: No History of Problems with Anesthesia: No NPO: Yes ASA Class: III Final Preanesthetic Review: No Changes in Pt Med Stat, Meds/Allgs Chart Reviewed, Consent Obtained/Reviewed and Anes Risks/Benef Reviewed Patient Risk: Intermediate Procedure Risk: Intermediate Assessment/Block/Sedation in SS: Assess/Block/Sedation- Anesthetic Plan Anesthetic Plan: GA and Agree w/ Assess. and Plan Disposition: Standard PACU
[2021-07-11 14:24] LABS: COVID-19 Test Negative (Negative); IDNOW Serial# 16C4AD1C
[2021-07-12] VITALS (16 sets, daily range): BP systolic 115–165; BP diastolic 70–94; PULSE 78–114; RESP 12–20; TEMP 36.1–36.9; O2SAT 90–97
[2021-07-12] MEDS: Lactated Ringers 1,000 ML 100 ML IVCONT ×3 (06:48→21:18)
[2021-07-12] MEDS: Lactated Ringers 1,000 ML 999 ML IV (06:48)
[2021-07-12 06:56] LABS: Glucose, Whole Blood 130 mg/dL (60-115)
--- NOTE | 2021-07-12 11:30 | P.BOP_ITS ---
Brief Operative Note Date of Service: 07/12/21 Pre-op diagnosis: Severe obesity with comorbid conditions (see below) Post-op diagnosis: same (Congenital abdominal adhesions) Procedure: INITIAL PATIENT BMI ON PRESENTATION AT OUR OFFICE: 41 kg/m2 LAST BMI BEFORE SURGERY: 36.7 kg/m2 COMORBIDITIES: sleep apnea on CPAP, hypertension, hyperlipidemia, non-insulin dependent diabetes, GERD, Depression, back pain, asthma, asthma, liver steatosis ?The patient presented to the Weight Management Program with significant obesity that was negatively impacting the patient's comorbidities as listed above.? The program is a phased program with a special focus on preoperative medical weight management to promote substantial weight loss and prepare the patients for the second phase of the program: bariatric surgery. The patient participated in an i ntensive weekly lifestyle ?intervention and exercise program during which the patient ?has lost between the initial office visit and the last preoperative visit 31.8 lbs, or 10.52% of initial actual body weight. It was deemed appropriate for the patient to now have bariatric surgery. In light of the current Covid-19 pandemic and the well documented strong association of obesity and increased risk of worse outcomes if infected with Covid-19 (REFERENCES: https://pubmed.ncbi.nlm.nih.gov/69495258/ ,? https://pubmed.ncbi.nlm.nih.gov/08528166/ ), any delay in undergoing bariatric surgery may lead to the patient's worsening health condition and increased?risk of more severe Covid-19 disease if infected. In addition a recent?study from [facility] published in [facility] on 03/07/2021 ([email or web address]) found that, among patients with obesity, substantial weight loss achieved with surgery was associated with improved outcomes of COVID-19 infection. The findings suggest that obesity can be a modifiable risk factor for the severity of COVID-19 infection. In addition, the patient met the BMI-criteria for bariatric surgery based on the BMI on initial presentation. The patient should not be penalized for achieving such weight loss because ?it is not sustainable long-term without surgical intervention and it was achieved in preparation for bariatric surgery ?under my direction and based on my published research ([email or web address] and? https://www.soard.org/article/[email or web address](12)35830-X/pdf ) ?that a 10% preoperative weight loss improves long-term weight loss after surgery and reduces perioperative complications.? Insurance carriers such as [facility] have endorsed my recommendations ?and have included in their policies criteria to include a 10% preoperative weight loss requirement. PROCEDURE: Esophago-gastroscopy, laparoscopic lysis of adhesions, laparoscopic sleeve gastrectomy and laparoscopic gastropexy INDICATIONS: This is a 51 year-old male who was electively scheduled for laparoscopic, possibly open sleeve gastrectomy. The risks and complications of the procedure were discussed with the patient in advance, particularly the possibility of ; pulmonary embolism; staple line leak; bleeding; GERD; cardiac, pulmonary, or renal complications; as well as long-term problems such as insufficient weight loss, vitamin deficiency, strictures, or ulcers. The patient understood all the risks, and was in agreement to proceed with surgery. DESCRIPTION OF PROCEDURE: After informed consent was obtained from the patient, the patient was given preoperative antibiotics, and was transferred to the operating room. After successful induction of general anesthesia, pneumatic compression devices were placed on both lower extremities. An upper endoscopy was performed next. The oropharynx and esophagus appeared to be within normal limits. There was no diaphragmatic hernia present of moderate size consistent with the findings of the preoperative upper GI. The stomach was entered. Then after all fluid and air were suctioned and the stomach was fully decompressed, the scope was withdrawn and secured in the mid esophagus. The patient was then prepped and draped in the usual sterile manner, and abdominal access was established at the right upper quadrant with the Milan technique. A 12 mm blunt port was inserted, and the abdomen was insufflated with CO2 to a pressure of 15 mmHg. Under direct visualization, additional ports were placed, specifically two 5 mm Versi-step ports to the left upper quadrant, and a 5 mm Versi-Step port to the right upper quadrant. 1% lidocaine plain was used to infiltrate all port sites as well as all fascia defects. Following that, the patient was placed in a steep reverse Trendelenburg position. An additional 5 mm port was placed to the right flank for the Mediflex retractor that was used to retract the left lobe of the liver. The gastro-esophageal fat pad was opened with the ultrasonic device (Thunderbeat, Olympus) and the anterior esophagus and hiatus were exposed. The angle of His was opened with the ultrasonic device the fundus of the stomach from any diaphragmatic and splenic attachments. I then opened the gastrocolic ligament between the transverse colon and the greater curvature of the stomach with the ultrasonic device to enter the lesser sac and facilitate the ligation of the short gastric vessels. I started at a mid-point along the greater curvature and using the Thunderbeat, all short gastric vessels were divided all the way to the angle of His until the left brenda was completely dissected at its entirety. I then divided the gastro-colic ligament distally to a distance of about 3-4 cm proximal to the pylorus. There were extensive congenital adhesions between the pancreas and posterior gastric wall. Those were lysed completely with the ultrasonic device. Adhesiolysis took approximately 45 min to complete. The dissection was very difficult and prolonged the operative time for at least 90 minutes for the following reasons: 1) extensive congenital abdominal adhesions, 2) large amount of intra-abdominal visceral fat, 3) limited exposure at the GE junction. The stomach was then divided transversely with one Endo ROSE MARY-45 purple, and six ROSE MARY-60 articulating orange loads using the AEON stapler and loads. Every effort was made that the gastric sleeve had a tubular shape and an even caliber throughout. Once the sleeve resection was completed, the staple line of the gastric sleeve was reinforced with Hemoclips. The resected stomach was retrieved without difficulty from the Milan port. A gastropexy was then performed in order to prevent postoperative GERD and partial gastric volvulus. Several interrupted 2.0 Surgidac sutures were placed between the sleeve's staple line and the previously divided greater omentum and gastro-colic ligament using the Endo-Stitch device. ?An upper endoscopy was performed. There was no narrowing at the GE junction. The scope was easily advanced all the way to the pylorus which was clearly visualized. There was no narrowing anywhere and the sleeve's caliber was even throughout. The sleeve's staple line was inspected and there was no evidence of ischemia, bleeding or dehiscence. At that point the gastroscope was withdrawn from the patient?s mouth while we were decompressing the bowel and the stomach from any remaining air. I looked into the lesser sac to see how the sleeve was situating and it was situating well. There was no bleeding from the staple line, spleen, or short gastric vessels. The Mediflex retractor was removed, and the undersurface of the liver was inspected and there was no bleeding. The patient was placed in supine position. I closed the fascial defect of the 12 mm port site with a figure of eight #1 Polysorb suture. Then 100 cc 0.25 % Marcaine plain with 10 mg of Dexamethasone were used to infiltrate the fascial closure as well as all skin incisions. At this point, the abdomen was deflated, all ports were removed under direct vi kaye, and no bleeding was noted from any of the port sites. The skin incisions were irrigated with saline and were closed with 4-0 absorbable monofilament sutures. Steri-Strips and OpSites were used to cover all incisions. The patient was extubated and was transferred in stable condition to the recovery room for further care. I was present and performed all yang parts of the procedure. Matteo was the heel sprayer first. There were no residents to assist with this case. Jasper Barbosa MD, PhD, FACS Surgeon: Mansoor Barbosa MD Anesthesia: GETA, local and other (TAP & 3ml of Zynrelef) Was an Maturity Checker used for this Procedure?: Yes Maturity Checker: Isi Felipe Estimated blood loss (mL): 10 IV fluids (mL): 3,000 Urine output (mL): 0 (No Avelar to gravity) Pathology: other (Stomach) Condition: stable Disposition: PACU
--- NOTE | 2021-07-12 11:35 | PHA.MEDREC ---
Pharmacy Consult ? Medication Reconciliation Pharmacy has completed the medication reconciliation. Nurse completed med rec, pharmacy verified
--- NOTE | 2021-07-12 11:39 | PM.DS ---
DS: Providers Provider Date of Service: 07/13/21 Date of admission: 07/12/21 06:22 Primary care physician: Adilson Gr PA-C DS: Summary Hospital Course Hospital Course: ADMITTING DIAGNOSIS: morbid obesity, HTN, hyperlipidemia, BANG, NIDDM, hx of substance use DISCHARGE DIAGNOSIS: same, s/p laparoscopic sleeve gastrectomy PAST SURGICAL HISTORY: umbillical hernia, orthopedic procedures PROCEDURE: upper endoscopy, laparoscopic sleeve gastrectomy DISCHARGE SUMMARY: History of Present Illness: The patient is a 51 year-old man with a BMI of 40.4 kg/m2 and associated co-morbidities as described above. The patient had extensive work-up,lost 33.1 lbs preoperatively and was electively scheduled for laparoscopic, possible open sleeve gastrectomy and gastropexy. Risks and complications of the surgery were discussed with the patient in advance, particularly the possibility of , pulmonary embolism, anastomotic leak, bleeding, bowel injury, GERD, cardiac, renal or pulmonary complications. The patient understood all the risks and was in agreement with the surgical plan. Hospital Course: The patient underwent an uneventful laparoscopic sleeve gastrectomy with gastropexy on the day of admission. Postoperatively, the patient was transferred to the surgical floor. The patient received IV Acetaminophen and IV dilaudid for pain control. Patient was started on bariatric phase 1 diet POD #0. On postoperative day one, the patient was feeling well without nausea, vomiting, fevers, or tachycardia. The patient had some mild incisional pain and the abdomen was soft. On the morning of postoperative day one, the patient was continued on 1 ounce of water or ice every half hour. During the day, the patient did fairly well, having some incisional pain, but able to ambulate adequately and to tolerate liquids well. Since the patient is doing well, we decided that the patient was ready to be discharged. The patient was given instructions to follow-up with me next week and to call my office for any fever over 101, persistent abdominal pain, nausea, vomiting, GERD, symptoms of DVT such as calf tenderness, or leg swelling, or pulmonary embolism such as chest pain or shortness of breath. The patient was also instructed to drink 40-60 ounces of liquids per day using the 1-ounce cups. The patient had been given prescriptions for Tylenol for pain, Zofran prn for nausea, and pantoprazole and carafate previously. The patient was encouraged to ambulate and use the incentive spirometer. The patient was allowed to shower, but no baths, and encouraged to stay active at home. All of these instructions were given to the patient personally. All questions were answered and the patient understood all instructions, the instructions were also given to the patient in print. Time Spent with Patient Time attestation: Total time spent providing and/or coordinating discharge services: Discharge coordination time: Less than 30 minutes Quality: Safe Use of Opioids Does Pt have an Active Cancer Diagnosis on the Problem List?: No Quality: Stroke Does the patient have a stroke diagnosis?: No Physical Exam Vital Signs: Vital Signs: Last Vital Signs Temp 98.2 F 07/12/21 11:23 Pulse 108 H 07/12/21 11:33 Resp 16 07/12/21 11:33 BP 143/82 H 07/12/21 11:33 Pulse Ox 96 07/12/21 11:33 BMI result Body Mass Index 35.9 DS: Data Data Completed and Pending Pending studies at discharge: Pending at discharge 07/12/21 10:53 Surgical [PTH] Routine Labs on day of discharge: Laboratory Results - last 24 hr 07/11/21 07/12/21 14:01 06:12 POC Glucose 130 H COVID-19 ([facility]) Negative COVID-19 Clin Com See Note Discharge Plan Discharge Anticipated Discharge Date/Time: 07/13/21 10:32 Patient Disposition: Home, Self-Care Discharge Diagnosis: s/p sleeve gastrectomy Referrals: Adilson Gr PA-C [Primary Care Provider] - 1 Week Discharge Medications: Continued fexofenadine 180 mg tablet 180 mg PO DAILY 90 Days Qty: 90 1RF fluticasone propionate 50 mcg/actuation spray,suspension 2 spray intranasal DAILY Qty: 16 3RF baclofen 20 mg tablet 20 mg PO Q8H Qty: 90 3RF lovastatin 40 mg tablet 40 mg PO BEDTIME 90 Days Qty: 90 2RF bupropion HCl 150 mg tablet extended release 24 hr 1 tab PO DAILY 0RF albuterol sulfate 90 mcg/actuation HFA aerosol inhaler 2 puff PO Q6H PRN (Reason: shortness of breath or wheezing) 30 Days Qty: 8.5 3RF citalopram 40 mg tablet 40 mg PO DAILY 0RF losartan 100 mg tablet 100 mg PO DAILY Qty: 90 2RF buspirone 10 mg tablet 10 mg PO TID 0RF buprenorphine HCl 450 mcg film 450 mcg buccal Q12H 30 Days Qty: 60 1RF pantoprazole 40 mg tablet,delayed release (DR/EC) 40 mg PO DAILY Qty: 30 2RF sucralfate 100 mg/mL suspension 10 ml PO BID Qty: 400 2RF ondansetron HCl 4 mg tablet 4 mg PO Q12H Qty: 20 0RF Held hydrochlorothiazide 12.5 mg tablet 12.5 mg PO DAILY Qty: 90 2RF Hold Instructions: Discuss restart with Dr Barbosa metformin 500 mg tablet extended release 24 hr 500 mg PO QAM 0RF Hold Instructions: Discuss whether to restart with Dr Barbosa Discontinued cholecalciferol (vitamin D3) 50 mcg (2,000 unit) capsule 50 mcg PO DAILY Qty: 30 6RF cyanocobalamin (vitamin B-12) 500 mcg tablet 500 mcg PO DAILY Qty: 30 6RF thiamine HCl (vitamin B1) 100 mg tablet 100 mg PO DAILY Qty: 30 6RF omeprazole 20 mg capsule,delayed release(DR/EC) 20 mg PO BID Qty: 60 6RF docusate sodium [Colace] 100 mg capsule 100 mg PO DAILY PRN (Reason: constipation) 30 Days Qty: 30 6RF Rx Instructions: Take one capsule by mouth as needed for constipation ferrous sulfate 325 mg (65 mg iron) tablet 325 mg PO DAILY Qty: 30 6RF polyethylene glycol 3350 [Miralax] 17 gram powder in packet 17 g PO DAILY Qty: 14 0RF Rx Instructions: Do 7 packets mixing each one with 8oz of water on 07/10/21 and another 7 packets on 07/11/21 Discharge Orders: Discharge Order (Routine); Ordered 07/13/21 Ordered By: Mansoor Barbosa Diet: other Activity on Discharge: No heavy lifting Stand Alone Forms: Patient Portal Discharge page Care Plan Goals: weight loss Health Concerns: morbid obesity Plan of Treatment: No tub baths, sex or returning to work until discussed at first post op appointment. No exercise, alcohol, tobacco or illegal drug use. Continue to use incentive spirometer hourly while awake. Walk in home for 5- 10 minutes every 2 hours during the first week. Continue phase 1 diet today and start phase 2 diet tomorrow morning. Follow all instructions in the bariatric handbook and call with any questions. 1. Please call your doctor or come back to the emergency room should any new symptoms arise. 2. You will receive a courtesy call from [facility] 24-48 hours after discharge. 3. Activity: abstain from alcohol, practice limited stair climbing, no bending, no driving, no exercise, no illicit substances, no lifting, no sex, no tub bath, no work. 4. Diet: continue as discussed with Dr. Barbosa. 5. Dressing Change/Wound Care: Do not change or remove surgical dressings unless they are wet or soiled. 6. Call your doctor if: - Your temperature exceeds 101.5 F - You experience excessive pain or swelling - You have an unexpected reaction to medication - You have excessive bleeding - You experience continued vomiting/nausea - Your incision begins to separate - Your incision shows signs of infection such as increased redness, swelling, excessive pain, heat, or drainage (light blood or clear fluid is normal) 7. General instructions: No lifting greater than 5 lbs for the next 4 weeks[address] driving within 24 hours of taking narcotic pain medications. If you do not move your bowels in the next 2 days, please take milk of magnesia over the counter. Please follow the post op diet and do not advance your diet until you are seen in the office in about 2 weeks. Please walk around your home every hour or two to prevent blood clots from forming in your legs. You do not need to wake from sleeping to walk. Please sleep in a bed or couch to prevent kinking at the hips and knees. 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 You may shower, no hot tubs, baths or swimming pools. Please call the office with any questions or concerns such as increasing abdominal pain, fever, chills, shortness of breath, chest pain, leg pain or swelling, or redness or drainage from your incisions. Do not hesitate to contact the office with any questions at . The patient's medical history has been reviewed and they are considered low risk for post op DVT and therefore DVT prophylaxis is not considered necessary. Travel after surgery was reviewed. The patient has not disclosed any travel plans during the first 30 days after surgery and they have been advised that within the first 30 days after surgery any bus, plane, train or car travel over 2 hours in duration is contraindicated due to the possibility of developing blood clots from immobility. Any travel, needs to include periods of ambulation of 10 minutes in duration every 2 hours. The patient was instructed to discuss any plans for travel during this period with their bariatric surgeon. Assessment: stable post op sleeve gastrectomy
--- NOTE | 2021-07-12 11:39 | PM.PNGS ---
Subjective Subjective Date of Service: 07/13/21 Interval history: Patient has mild incisional pain, but was able to ambulate and use the incentive spirometer. He is tolerating phase 1 bariatric diet Physical Exam Vital Signs: Vital Signs: Last Vital Signs Temp 98.2 F 07/12/21 11:23 Pulse 108 H 07/12/21 11:33 Resp 16 07/12/21 11:33 BP 143/82 H 07/12/21 11:33 Pulse Ox 96 07/12/21 11:33 BMI result Body Mass Index 35.9 GI: Inspection: Yes normal to inspection, Yes incision (clean, dry and intact) and Yes obesity Extrem: Right lower extremity: normal to inspection (no calf tenderness) Left lower extremity: normal to inspection (no calf tenderness) Objective Data Active Medications Albuterol Sulfate (Albuterol Sulfate (0.083%) 2.5 Mg/3 Ml Vial.Neb) 2.5 mg INHALE ONCE PRN PRN Reason: Shortness of Breath/Wheezing Fentanyl (Fentanyl Citrate/Pf 100 Mcg/2 Ml Vial) 50 mcg IVPUSH Q5M PRN; Protocol PRN Reason: Pain, Moderate (Pain Scale 4-6 Hydromorphone HCl (Hydromorphone Hcl 0.5 Mg/0.5 Ml Syringe) 0.5 mg IVPUSH Q5M PRN; Protocol PRN Reason: Pain, Severe (Pain Scale 7-10) Lactated Ringer's (Lr) 1,000 mls @ 100 mls/hr IVCONT .Q10H KAUR Last Admin: 07/12/21 06:48 Dose: 100 mls/hr Documented by: AVINASH Promethazine HCl 6.25 mg/ (Sodium Chloride) 50.25 mls @ 201 mls/hr IV ONCE PRN PRN Reason: Nausea and Vomiting Ondansetron HCl (Ondansetron Hcl 4 Mg/2 Ml Vial) 4 mg IVPUSH ONCE PRN PRN Reason: Nausea and Vomiting Oxycodone HCl (Oxycodone Hcl Immed Release 5 Mg Tablet) 10 mg PO ONCE PRN PRN Reason: Pain, Mild (Pain Scale 1-3) Labs CBC & Chem 7: 07/13/21 05:36 07/13/21 05:36 Labs: Laboratory Results - last 24 hr 07/11/21 07/12/21 14:01 06:12 POC Glucose 130 H COVID-19 (CINDY) Negative COVID-19 Clin Com See Note Procedures Date of Service Date of Service: 07/13/21 Progress Note: A&P Assessment and plan (1) S/P laparoscopic sleeve gastrectomy: Status: Acute Assessment and Plan: s/p laparoscopic sleeve gastrectomy, lysis of adhesions and gastropexy Doing well Check am labs. If OK, will discharge home? (2) Obesity: Status: Acute (3) BMI 36.0-36.9,adult: Status: Acute (4) BANG on CPAP: Status: Acute (5) Asthma: Status: Acute (6) GERD (gastroesophageal reflux disease): Status: Acute (7) Alcoholic fatty liver: Status: Acute (8) HTN (hypertension): Status: Acute (9) HLD (hyperlipidemia): Status: Acute Time Spent With Patient Time: Total time spent is greater than 50% in coordination of care (as documented) at patient's floor/unit and/or counseling patient: Quality Stroke Does the patient have a stroke diagnosis?: No VTE Prior VTE?: No VTE Risk Level:: Surgical - moderate VTE Device Contraindication: N/A - Device Ordered VTE Drug Contraindication: Treatment Not Indicated
[2021-07-12 11:52] LABS: Hematocrit 43.7 % (42.0-52.0); Hemoglobin 14.2 g/dl (14.0-18.0)
[2021-07-12 12:05] LABS: Anion Gap 13 (12-20); Blood Urea Nitrogen 11 mg/dL (9-16); Calcium 8.8 mg/dL (8.4-10.2); Carbon Dioxide 26 mmol/L (22-29); Chloride 104 mmol/L (96-108); Creatinine Clr Calc Pharmacy 107.4; Estimated Glomerular Filt Rate > 60; Glucose Random 152 mg/dL (60-115); Sodium 139 mmol/L (135-145)
[2021-07-12] MEDS: Famotidine/PF 20 MG/2 ML VIAL IVPUSH ×2 (12:17→20:02)
[2021-07-12] MEDS: HYDROmorphone HCl 0.5 MG/0.5 ML SYRINGE IVPUSH ×2 (13:05→13:30)
[2021-07-12] MEDS: ceFAZolin Sodium/Dextrose,Iso 2 GM/50 ML PIGGYBACK IV (14:12)
[2021-07-12] MEDS: busPIRone HCl 10 MG TABLET PO ×2 (15:27→20:02)
[2021-07-12] MEDS: 0.9 % Sodium Chloride Flush 3 ML SYRINGE IVFLUSH (20:02)
[2021-07-12] MEDS: ondansetron HCL 4 MG/2 ML VIAL IVPUSH (22:13)
--- NOTE | 2021-07-12 23:44 | PC.RT ---
pt refusing to go on home CPAP. Pt will call if needed
[2021-07-13 03:49] VITALS: BP 143/83; PULSE 88; RESP 20; TEMP 36.9; O2SAT 97
[2021-07-13] MEDS: Losartan Potassium 50 MG TABLET 100 MG PO (05:00)
[2021-07-13] MEDS: buPROPion HCl XL 150 MG TAB.ER.24H PO (05:00)
[2021-07-13] MEDS: busPIRone HCl 10 MG TABLET PO (05:00)
[2021-07-13] MEDS: Escitalopram Oxalate 20 MG TABLET PO (05:00)
[2021-07-13 06:09] LABS: Glucose, Whole Blood 122 mg/dL (60-115)
[2021-07-13] MEDS: ondansetron HCL 4 MG/2 ML VIAL IVPUSH (06:11)
[2021-07-13 06:33] LABS: MANUAL DIFF FLAG NO
[2021-07-13 06:38] LABS: Hematocrit 40.2 % (42.0-52.0); Hemoglobin 13.2 g/dl (14.0-18.0); Imm Gran Abs Auto 0.03 X10*3/uL (0.00-0.03); Imm Gran Pct Auto 0.3 % (0.0-0.4); Lymphocytes Absolute Auto 1.3 X10*3/uL (1.2-4.9); Lymphocytes Percent Auto 14.4 % (20-40); Mean Corpuscular HGB Conc 32.8 g/dl (31.0-36.0); Mean Corpuscular Hemoglobin 29.5 pg (27.0-33.0); Mean Corpuscular Volume 89.7 fL (80.0-98.0); Mean Platelet Volume 10.5 fL (9.4-12.4); Monocytes Absolute Auto 0.6 X10*3/uL (0.1-1.2); Monocytes Percent Auto 6.7 % (2-11); Neutrophils Absolute Auto 6.8 x10*3/uL (2.0-8.3); Neutrophils Percent Auto 78.6 % (45-73); Platelet Count 270 X10*3/uL (160-400); Red Blood Count 4.48 X10*6/uL (4.60-5.80); Red Cell Distribution Width 13.4 % (11.0-16.0); White Blood Count 8.7 X10*3/uL (4.8-10.8)
[2021-07-13 06:59] LABS: Anion Gap 14 (12-20); Blood Urea Nitrogen 12 mg/dL (9-16); Carbon Dioxide 27 mmol/L (22-29); Chloride 103 mmol/L (96-108); Creatinine Clr Calc Pharmacy 138.6; Estimated Glomerular Filt Rate > 60; Glucose Random 121 mg/dL (60-115); Potassium 4.8 mmol/L (3.3-5.1); Sodium 139 mmol/L (135-145)
[2021-07-13] MEDS: Famotidine/PF 20 MG/2 ML VIAL IVPUSH (07:08)
[2021-07-13 07:51] VITALS: BP 129/73; PULSE 80; RESP 18; TEMP 36.9; O2SAT 95
--- NOTE | 2021-07-13 08:52 | MHC.CM.PN ---
EMR REVIEWED, CM MET W/PT WHO IS A&OX4, PT REPORTS HE IS INDEP W/ALL CARE, USES A CPAP ONLY DME, NO HOME SERVICES, PT VERIFIES PCP IS GENET BROOKS, JAMEL X2, PT PROVIDED W/EDUCATIONAL HANDOUTS, BLANK HCP AND DIRECTIONS ON HOW TO FILL IT OUT, PT DECLINED TO COMPLETE HE IS ANXIOUS TO D/C BY 9AM. D/C HOME NO SERVICES W/OUPT FOLLOW-UP, PT'S S.O. FOR TRANSPORT
--- NOTE | 2021-07-13 15:25 | HO.POSTANES ---
Post Anesthesia Evaluation Post Anesthesia Evaluation Vital Signs: Vital Signs Temp Pulse Resp BP Pulse Ox 07/13/21 07:51 98.5 F 80 18 129/73 95 07/13/21 03:49 98.5 F 88 20 143/83 H 97 Anesthesia: General Endotracheal-GETA Mental Status: Awake Pain Control: Satisfactory Nausea/Vomiting: None Hydration: Adequate Anesthesia-Related Issues: No Anes. Related Issues
== END 2021-07-13 09:17 | disposition home or self-care (01) | DRG 403 ==
LOC: HO.SSSA 11:39 → HO.S3 13:13
PROVIDERS: Physician Assistant; Physician Assistant Surgical; Admitting Provider Surgery; PCP Physician Assistant; Visit Provider Surgery
PROC: 0DB64Z3 Excision of Stomach, Percutaneous Endoscopic Approach, Vertical (ICD-10-PCS; CPT 43845; principal; 2021-07-12 07:30)
DX: E66.01 Morbid (severe) obesity due to excess calories (principal); K76.0 Fatty (change of) liver, not elsewhere classified; E11.9 Type 2 diabetes mellitus without complications; K21.9 Gastro-esophageal reflux disease without esophagitis; F41.9 Anxiety disorder, unspecified; G47.33 Obstructive sleep apnea (adult) (pediatric); Z86.16 Personal history of COVID-19; I10 Essential (primary) hypertension; M54.9 Dorsalgia, unspecified; K66.0 Peritoneal adhesions (postprocedural) (postinfection); J45.909 Unspecified asthma, uncomplicated; Z87.891 Personal history of nicotine dependence; Z68.36 Body mass index [BMI] 36.0-36.9, adult; Z20.822 Contact with and (suspected) exposure to COVID-19; Z88.8 Allergy status to other drugs, medicaments and biological substances; Z79.52 Long term (current) use of systemic steroids; Z79.84 Long term (current) use of oral hypoglycemic drugs; Z79.899 Other long term (current) drug therapy
CPT/HCPCS: 36415; 80048; 80053; 80061; 82947; 83036; 83525; 84443; 85014; 85018; 85025; 85610; 85730; 86140; 86850; 86900; 86901; 87635; 88307; 88342; 99024; A4649; C9399; J0131; J0690; J1100; J1170; J2250; J2405; J3010

== ENCOUNTER → 2021-07-19 08:46 | Outpatient (BNVA) | payer OTHER, SELFPAY | PROVIDERS: PCP Physician Assistant; Visit Provider Nurse Practitioner Family | DX: Z51.81 Encounter for therapeutic drug level monitoring (principal); E66.01 Morbid (severe) obesity due to excess calories; F11.20 Opioid dependence, uncomplicated; M47.27 Other spondylosis with radiculopathy, lumbosacral region; G89.29 Other chronic pain; M53.3 Sacrococcygeal disorders, not elsewhere classified; Z68.34 Body mass index [BMI] 34.0-34.9, adult | CPT/HCPCS: 99212 ==

== ENCOUNTER → 2021-09-14 08:39 | Outpatient (BNVA) | payer OTHER, SELFPAY | PROVIDERS: PCP Physician Assistant; Visit Provider Anesthesiology | DX: M47.27 Other spondylosis with radiculopathy, lumbosacral region (principal); G89.29 Other chronic pain; M53.3 Sacrococcygeal disorders, not elsewhere classified; Z79.891 Long term (current) use of opiate analgesic | CPT/HCPCS: 99212 ==

== ENCOUNTER → 2021-10-12 15:02 | Outpatient (BNVA) | payer OTHER, SELFPAY | PROVIDERS: PCP Physician Assistant; Visit Provider Anesthesiology | DX: M47.27 Other spondylosis with radiculopathy, lumbosacral region (principal); G89.29 Other chronic pain; M53.3 Sacrococcygeal disorders, not elsewhere classified | CPT/HCPCS: 99212 ==

== ENCOUNTER 2021-11-03 10:03 | Day surgery (SDC) | payer OTHER, SELFPAY ==
[2021-10-27 14:01] VITALS: BMI 31.4
--- NOTE | ~2021-11-03 | FL_ITS ---
EXAMINATION: XR FLUOROSCOPY WITH IMAGES CLINICAL INFORMATION: SI joint fusion. COMPARISON: None. TECHNIQUE: Fluoroscopy performed by Dr. Dennis Cifuentes. Fluoroscopy time: 0.8 minutes Cumulative Dose: 22 mGy-cm DAP: 5 Gy-cm2 Images: 4. FINDINGS: Images demonstrate surgical instrument across the left sacroiliac joint. FL/FL guidance in OR IMPRESSION: Fluoroscopy guidance for left sacroiliac joint procedure.
--- NOTE | 2021-11-03 09:14 | P.CONAN_ITS ---
[facility] Active Problems Active Problems: All Active Problems (Updated 10/27/21 @ 13:52 by Isabel Ngo RN) HLD (hyperlipidemia) (Acute) HTN (hypertension) (Acute) Impaired glucose metabolism (Acute) Lumbar disc disease with radiculopathy (Acute) GERD (gastroesophageal reflux disease) (Acute) Chronic pain (Acute) Asthma (Acute) BANG on CPAP (Acute) Morbid obesity (Acute) S/P laparoscopic sleeve gastrectomy (Acute) Obesity (Acute) Past Medical History Medical History Abdominal bloating Alcohol dependence Alcoholic fatty liver Allergic rhinitis Annual physical exam Anxiety Asthma Binge eating disorder BMI 36.0-36.9,adult BMI 37.0-37.9, adult BMI 38.0-38.9,adult Chronic idiopathic constipation COVID-19 vaccine series completed Ear discomfort Elevated cholesterol GERD (gastroesophageal reflux disease) History of COVID-19 Left hip pain Loss of sense of smell Lumbar disc disease Moderately severe major depressive disorder, single episode Non-insulin dependent type 2 diabetes mellitus Obese Open humeral fracture Otitis externa Otitis media Right hip pain Sacroiliac joint pain Sleep apnea Smoker Spondylosis of lumbosacral spine with radiculopathy Vitamin B12 deficiency Family History Family History Father Hypertension CVD (cardiovascular disease) Mother CVD (cardiovascular disease) Lymph node cancer Lymphoma Sister Arthritis in Crohn's disease Sister Heart disease CVD (cardiovascular disease) Migraine Brother IBS (irritable bowel syndrome) Surgical History Surgical History Fracture of surgical neck of humerus History of sleeve gastrectomy History of surgery History of umbilical hernia repair Hx of colonoscopy History of Problems with Anesthesia: No Social History Social History Household Members: Significant Other and Children Housing: Apartment Are you a primary regular senior care provider to a significant other at home: No Do you presently have visiting nurse or other home services: No Alcohol intake: former Year quit: 2017 Patient Tobacco Use Status: Former Tobacco user Quit Date: 02/2021 Tobacco use type: Cigarette Cigarette Packs Per Day: 1 Cigarettes Per Day: 20.0 Years Smoked: 35 e-Cigarette/Vaping Use: Never Used Second Hand Smoke Exposure: No Advance Directives: No Advance Directives Information Provided: Yes service: No Current occupational status: unemployed and disabled Cognitive needs: Yes (Cane) Hearing needs: No Vision needs: No Meds Allergies Allergy/AdvReac Type Severity Reaction Status Date / Time dexamethasone AdvReac Severe severe Verified 10/03/21 10:40 joint pain (did not wean off) Active Medications: Current Medications Lactated Ringer's (Lr) 1,000 mls @ 50 mls/hr IVCONT .Q20H [facility] Home Medications Medication Instructions Recorded Confirmed Last Taken Type bupropion HCl 150 mg 24 hr tablet, 1 tab PO DAILY 07/12/21 10/27/21 07/12/21 History extended release buspirone 30 mg tablet 30 mg PO TID 08/18/21 10/27/21 Unknown History baclofen 20 mg tablet 1 tab PO Q8H 11/03/21 11/03/21 Unknown History Exam Exam Date and Time: November 03, 2021 0914 Height,Weight and Vital Signs: Height 6 ft Weight 104.893 kg Airway Mallampati Class: III TM Dist: >3cm Neck ROM: Full Loose/Missing/Broken Teeth: No Heart: RRR Lungs: CTA Assessment and Plan Assessment Anesthesia Assessment: Anesthesia Plan Discussed and Chart Reviewed Final Anesthetic Review History of Problems with Anesthesia: No NPO: Yes ASA Class: III Final Preanesthetic Review: Meds/Allgs Chart Reviewed, Consent Obtained/Reviewed and Anes Risks/Benef Reviewed Patient Risk: Intermediate Procedure Risk: Low Anesthetic Plan Anesthetic Plan: MAC: Disposition: Standard PACU
[2021-11-03 10:41] VITALS: BP 129/80; PULSE 78; RESP 16; TEMP 36.7; O2SAT 95
[2021-11-03] MEDS: Lactated Ringers 1,000 ML 50 ML IVCONT (10:50)
--- NOTE | 2021-11-03 11:48 | MHC.SHP ---
Pre-Procedural Eval Section A Date of Service: 11/03/21 The patient is an INPATIENT: No Changes since office visit: Yes Patient answered all questions The History & Physical has been completed within 30 days and I have reviewed it.: No Section B Chief Complaint: SI joint pain Details of Present Illness: sacroiliitis sacroiliac joint dysfunction Relevant Family History (Specify if Yes): No Relevant Social History: None Present Medications: see Short Stay Collaborative assessment Medical History: No relevant PMH History of Previous Operations: Relevant previous surgery/procedure and date(s) (good results of the right SI joint fusion.) Allergies: Allergies Allergy/AdvReac Type Severity Reaction Status Date / Time dexamethasone AdvReac Severe severe Verified 10/03/21 10:40 joint pain (did not wean off) Review of Systems Sugical H&P ROS: Negative: Constitution, Cardiovascular, Respiratory, Neurological, Psychiatric, Hem-Onc, Allergic/Immunologic, Gastrointestinal, Genitourinary, Musculoskeletal, Integumentary, Endocrine and Eyes/Ears/Nose/Throat Exam Surgical H&P Exam: Normal: HEENT, Normal: Heart, Normal: Lungs, Normal: Extremities, Normal: Abdomen, Normal: Skin and Normal: Neurological Plan Diagnosis/Plan: Unchanged I have reviewed the history and physical and performed a pertinent physical examination on my patient. No changes have occurred unless specified.
--- NOTE | 2021-11-03 11:52 | W.PM.OPN ---
Operative Note Operative Note Date of Service: 11/03/21 Narrative: Sacroiliac joint stabilisation procedure. posterior sacroiliac joint fusion using LINQ SI joint stabilization system with C-arm fluoroscopy for guidance.? Mr. Rodriguez is very pleasant 42 years old male who is suffering left sacroiliac joint insufficiency and sacroiliitis.??He failed conservative management of sacroiliitis.??He came today to receive the procedures as above.??The risks and benefits including bleeding, infection, peripheral nerve damage, failure to reduce the pain were explained to the patient.?The patient came to the operating room, he was positioned on the stretcher supine, [place] [employer] monitors were applied and patient was administered with general endotracheal anesthesia.??After that the patient was transferred on operating table and positioned prone with all pressure points protected. The patient was administered 2 grams cefazolin IV approximately 25 minutes before the start of the procedure.? Time-out was performed delineating correct site, side, and nature of the procedure, name and date of of the patient, risk of fire, need for DVT prophylaxis, need for antibiotics.? The patient was transferred?on?radiolucent table. All pressure points were protected again. Lower back and bilateral buttocks were prepped with ChloraPrep and draped with full body drape. 3. 5 cm posterior midline incision over the projection of the left S1 foramina was performed.? Soft tissue dissection done to sacroiliac joint and thorough blind dissection was made in the direction of the?sacroiliac joint.? K-wire pin was inserted into the sacroiliac joint and guiding instrument was inserted into the joint using the pin as a guide and advanced into the joint on the intermittent anterior posterior and lateral views.??? After that pin was removed and rasping device was inserted to broach and rasp sacroiliac joint.? Once joint was prepared and inserted the structural allograft implant was hammered into the joint . It was packed with ortho biologics in and around the implant to provide better opportunity? for bones fusion.? The position of the allograft was confirmed radiographically.? The wound was irrigated, hemostasis was achieved, wound was closed in 2 layers.? Surgery was concluded by performing standard suture closing technique:? 0 Polysorb suture was used to close the wound and dimitris were used to apptoximate the level of the skin.? Injection of the lidocaine 2% mixed with bupivacaine 0.5% was injected into the wound before closure.? Skin glue was applied to the skin edges.? Sterile?dressing was applied with bacitracin ointment .? The patient tolerated procedure well he was awaken, extubated and taken outside of the operating room to PACU where he recovered uneventfully. He went home without immediate complications. he will be wearing an SI joint fixation belt for the 10 weeks after the procedure.
[2021-11-03 13:55] VITALS: BP 131/84; PULSE 99; RESP 20; TEMP 36.4; O2SAT 99
[2021-11-03 14:00] VITALS: BP 137/85; PULSE 77; RESP 20; O2SAT 99
--- NOTE | 2021-11-03 14:03 | P.BOP_ITS ---
Brief Operative Note Date of Service: 11/03/21 Pre-op diagnosis: sacroiliitis, acroiliac joint pain Post-op diagnosis: same Procedure: sacroiliac joint fusion Implants: cadaver lyophilized bone with biological application on it Surgeon: Dennis Cifuentes MD Anesthesia: GETA Was an Talent Acquisition Program Manager used for this Procedure?: No Estimated blood loss (mL): 12 Pathology: none sent Condition: stable Disposition: PACU
[2021-11-03 14:05] VITALS: BP 131/77; PULSE 66; RESP 18; O2SAT 99
[2021-11-03 14:10] VITALS: BP 130/78; PULSE 79; RESP 18; O2SAT 94
[2021-11-03 14:25] VITALS: BP 123/76; PULSE 72; RESP 18; TEMP 36.6; O2SAT 94
== END 2021-11-03 15:24 ==
LOC: HO.SSS 10:04
PROVIDERS: PCP Internal Medicine; Visit Provider Anesthesiology
PROC: (CPT 27279; principal; 2021-11-03 11:30)
DX: M53.3 Sacrococcygeal disorders, not elsewhere classified (principal); M46.1 Sacroiliitis, not elsewhere classified; G89.29 Other chronic pain; M47.27 Other spondylosis with radiculopathy, lumbosacral region; E11.9 Type 2 diabetes mellitus without complications; G47.33 Obstructive sleep apnea (adult) (pediatric); Z79.899 Other long term (current) drug therapy; Z88.8 Allergy status to other drugs, medicaments and biological substances; Z86.16 Personal history of COVID-19; Z87.891 Personal history of nicotine dependence
CPT/HCPCS: 27279; C1713; J0690; J1170; J2250; J2405; J2795; J3370; Q9965; Q9967

== ENCOUNTER → 2021-11-09 11:40 | Outpatient (BNVA) | payer OTHER, SELFPAY | PROVIDERS: PCP Internal Medicine; Visit Provider Anesthesiology | DX: M47.27 Other spondylosis with radiculopathy, lumbosacral region (principal); G89.29 Other chronic pain; M53.3 Sacrococcygeal disorders, not elsewhere classified; Z48.01 Encounter for change or removal of surgical wound dressing | CPT/HCPCS: 99212 ==

== ENCOUNTER → 2021-11-16 11:26 | Outpatient (BNVA) | payer OTHER, SELFPAY | PROVIDERS: PCP Internal Medicine; Visit Provider Anesthesiology | DX: M47.27 Other spondylosis with radiculopathy, lumbosacral region (principal); G89.29 Other chronic pain; M53.3 Sacrococcygeal disorders, not elsewhere classified | CPT/HCPCS: 99212 ==

== ENCOUNTER → 2021-12-07 15:51 | Outpatient (BNVA) | payer OTHER, SELFPAY | PROVIDERS: PCP Internal Medicine; Visit Provider Anesthesiology | DX: Z79.891 Long term (current) use of opiate analgesic (principal) | CPT/HCPCS: 99211 ==

== ENCOUNTER 2022-01-02 10:31 | Outpatient (REF) | payer OTHER, SELFPAY ==
--- NOTE | ~2022-01-02 | XR_ITS ---
EXAMINATION: XR ELBOW, RIGHT CLINICAL INFORMATION: Lateral epicondylitis, right elbow. COMPARISON: None TECHNIQUE: AP, lateral, and oblique views of the right elbow. FINDINGS: There is no acute radiographic finding. No fracture or dislocation is seen. No elbow joint effusion is noted. No lytic or sclerotic bony lesion is appreciated. There is a small olecranon spur. Right humeral metallic orthopedic fixation plate and screws are partially imaged. XR/XR elbow RT 2V IMPRESSION: No acute finding.
== END 2022-01-02 10:32 | disposition home or self-care (01) ==
LOC: HO.XRAY 10:31
PROVIDERS: PCP Physician Assistant; Visit Provider Physician Assistant
DX: M77.11 Lateral epicondylitis, right elbow (principal)
CPT/HCPCS: 73070

== ENCOUNTER → 2022-01-25 08:00 | Outpatient (BNVA) | payer OTHER, SELFPAY | PROVIDERS: PCP Physician Assistant; Visit Provider Physician Assistant | DX: Z51.81 Encounter for therapeutic drug level monitoring (principal); F11.20 Opioid dependence, uncomplicated; M47.27 Other spondylosis with radiculopathy, lumbosacral region; M53.3 Sacrococcygeal disorders, not elsewhere classified; G89.29 Other chronic pain; M77.11 Lateral epicondylitis, right elbow | CPT/HCPCS: 20551; 99202; 99212; J1100 ==

== ENCOUNTER 2022-01-26 09:46 | Day surgery (SDC) | payer OTHER, SELFPAY ==
[2022-01-19 09:22] VITALS: BMI 30.7
--- NOTE | 2022-01-25 10:36 | P.CONAN_ITS ---
Documented by User: Radha Gunter NP 01/25/22 10:39 HPI - Anesthesia Eval Consult details Narrative: 52yo M for Right Sacroiliac Joint Fusion s/p same 10/2021 with GA-ETT 7.5 PMFSH Active Problems Active Problems: All Active Problems (Updated 01/02/22 @ 10:07 by Adilson Gr PA-C) HLD (hyperlipidemia) (Acute) HTN (hypertension) (Acute) Impaired glucose metabolism (Acute) Lumbar disc disease with radiculopathy (Acute) GERD (gastroesophageal reflux disease) (Acute) Chronic pain (Acute) Asthma (Acute) BANG on CPAP (Acute) Morbid obesity (Acute) S/P laparoscopic sleeve gastrectomy (Acute) Obesity (Acute) Right lateral epicondylitis (Acute) Past Medical History Medical History Abdominal bloating Alcohol dependence Alcoholic fatty liver Allergic rhinitis Annual physical exam Anxiety Asthma Binge eating disorder BMI 36.0-36.9,adult BMI 37.0-37.9, adult BMI 38.0-38.9,adult Chronic idiopathic constipation COVID-19 vaccine series completed Ear discomfort Elevated cholesterol GERD (gastroesophageal reflux disease) History of COVID-19 Left hip pain Loss of sense of smell Lumbar disc disease Moderately severe major depressive disorder, single episode Non-insulin dependent type 2 diabetes mellitus Obese Open humeral fracture Otitis externa Otitis media Right hip pain Sacroiliac joint pain Sleep apnea Smoker Spondylosis of lumbosacral spine with radiculopathy Vitamin B12 deficiency Family History Family History Father Hypertension CVD (cardiovascular disease) Mother CVD (cardiovascular disease) Lymph node cancer Lymphoma Sister Arthritis in Crohn's disease Sister Heart disease CVD (cardiovascular disease) Migraine Brother IBS (irritable bowel syndrome) Surgical History Surgical History Fracture of surgical neck of humerus History of sleeve gastrectomy History of surgery History of surgical fusion joint History of umbilical hernia repair Hx of colonoscopy History of Problems with Anesthesia: No Social History Social History Household Members: Significant Other and Children Housing: Apartment Are you a primary health care liaison to a significant other at home: No Do you presently have visiting nurse or other home services: No Alcohol intake: former Year quit: 2018 Patient Tobacco Use Status: Former Tobacco user Quit Date: 2020 Tobacco use type: Cigarette Cigarette Packs Per Day: 1 Cigarettes Per Day: 20.0 Years Smoked: 35 e-Cigarette/Vaping Use: Never Used Second Hand Smoke Exposure: No Use of substances other than those prescribed or required for medical reasons: No Have you been hit, kicked, punched, or otherwise hurt by someone within the past year? If so, by whom?: No Are you DNR?: No Advance Directives: No Advance Directives Information Provided: Yes (brochure mailed) Advance Directives on File: No Recently lost weight without trying: No Eating poorly because of decreased appetite: No Nutrition Risks: No Nutritional Risk service: No Current occupational status: unemployed and disabled Cognitive needs: Yes (Cane) Hearing needs: No Vision needs: No Meds Allergies Allergy/AdvReac Type Severity Reaction Status Date / Time dexamethasone AdvReac Severe severe Verified 01/25/22 16:01 joint pain (did not wean off) Home Medications Medication Instructions Recorded Confirmed Last Taken Type bupropion HCl 150 mg 24 hr tablet, 1 tab PO DAILY 07/12/21 01/19/22 07/12/21 History extended release buspirone 30 mg tablet 30 mg PO TID 08/18/21 01/19/22 11/03/21 08:30 History citalopram 40 mg tablet 40 mg PO DAILY 01/25/22 Unknown History losartan 100 mg tablet 100 mg PO DAILY 01/25/22 Unknown History Exam Exam Date and Time: January 25, 2022 1036 Height,Weight and Vital Signs: Height 6 ft Weight 102.569 kg Pertinent Lab Results Pertinent Lab Results: Laboratory Tests 07/13/21 07/13/21 05:36 05:36 WBC 8.7 Hgb 13.2 L Hct 40.2 L Plt Count 270 Sodium 139 Potassium 4.8 Chloride 103 Carbon Dioxide 27 BUN 12 Creatinine 0.86 Assessment and Plan Assessment Anesthesia Assessment: Chart Reviewed Final Anesthetic Review History of Problems with Anesthesia: No Documented by User: Real Delgado MD 01/26/22 11:41 REPLACED BY [facility] Past Medical History Medical History Abdominal bloating Alcohol dependence Alcoholic fatty liver Allergic rhinitis Annual physical exam Anxiety Asthma Binge eating disorder BMI 36.0-36.9,adult BMI 37.0-37.9, adult BMI 38.0-38.9,adult Chronic idiopathic constipation COVID-19 vaccine series completed Ear discomfort Elevated cholesterol GERD (gastroesophageal reflux disease) History of COVID-19 Left hip pain Loss of sense of smell Lumbar disc disease Moderately severe major depressive disorder, single episode Non-insulin dependent type 2 diabetes mellitus Obese Open humeral fracture Otitis externa Otitis media Right hip pain Sacroiliac joint pain Sleep apnea Smoker Spondylosis of lumbosacral spine with radiculopathy Vitamin B12 deficiency Family History Family History Father Hypertension CVD (cardiovascular disease) Mother CVD (cardiovascular disease) Lymph node cancer Lymphoma Sister Arthritis in Crohn's disease Sister Heart disease CVD (cardiovascular disease) Migraine Brother IBS (irritable bowel syndrome) Family history of problems with anesthesia: No Surgical History Surgical History Fracture of surgical neck of humerus History of sleeve gastrectomy History of surgery History of surgical fusion joint History of umbilical hernia repair Hx of colonoscopy Social History Social History Household Members: Significant Other and Children Housing: Apartment Are you a primary health care liaison to a significant other at home: No Do you presently have visiting nurse or other home services: No Alcohol intake: former Year quit: 2018 Patient Tobacco Use Status: Former Tobacco user Quit Date: 2020 Tobacco use type: Cigarette Cigarette Packs Per Day: 1 Cigarettes Per Day: 20.0 Years Smoked: 35 e-Cigarette/Vaping Use: Never Used Second Hand Smoke Exposure: No Use of substances other than those prescribed or required for medical reasons: No Have you been hit, kicked, punched, or otherwise hurt by someone within the past year? If so, by whom?: No Are you DNR?: No Advance Directives: No Advance Directives Information Provided: Yes (brochure mailed) Advance Directives on File: No Recently lost weight without trying: No Eating poorly because of decreased appetite: No Nutrition Risks: No Nutritional Risk service: No Current occupational status: unemployed and disabled Cognitive needs: Yes (Cane) Hearing needs: No Vision needs: No Meds Allergies Allergy/AdvReac Type Severity Reaction Status Date / Time dexamethasone AdvReac Severe severe Verified 01/25/22 16:01 joint pain (did not wean off) Home Medications Medication Instructions Recorded Confirmed Last Taken Type bupropion HCl 150 mg 24 hr tablet, 1 tab PO DAILY 07/12/21 01/19/22 07/12/21 History extended release buspirone 30 mg tablet 30 mg PO TID 08/18/21 01/19/22 11/03/21 08:30 History citalopram 40 mg tablet 40 mg PO DAILY 01/25/22 Unknown History losartan 100 mg tablet 100 mg PO DAILY 01/25/22 Unknown History Exam Airway Mallampati Class: III TM Dist: >3cm Neck ROM: Full Loose/Missing/Broken Teeth: No Heart: rrr Lungs: clear Assessment and Plan Final Anesthetic Review Family History of Problems with Anesthesia: No NPO: Yes ASA Class: II Final Preanesthetic Review: No Changes in Pt Med Stat, Meds/Allgs Chart Reviewed, Consent Obtained/Reviewed and Anes Risks/Benef Reviewed Patient Risk: Intermediate Procedure Risk: Low Anesthetic Plan Anesthetic Plan: GA Disposition: Standard PACU
[2022-01-26] VITALS (10 sets, daily range): BP systolic 125–166; BP diastolic 81–98; PULSE 67–91; RESP 16–18; TEMP 36.1–37.1; O2SAT 96–99
--- NOTE | ~2022-01-26 | FL_ITS ---
EXAMINATION: XR FLUOROSCOPY WITH IMAGES CLINICAL INFORMATION: Right SI joint pain. COMPARISON: None. TECHNIQUE: Fluoroscopy Supervised By: Dr. Dennis Cifuentes. Fluoroscopy Time: 1.1 minute. Cumulative Dose: 48.4 mGy. DAP: 13.2 Gycm2. Images: 4. FINDINGS: Fluoroscopy guidance was provided to Dr. Dennis Cifuentes for right SI joint intervention. 4 images were obtained digitally. FL/FL guidance in OR IMPRESSION: Fluoroscopy guidance was provided to referring physician for right SI joint intervention.
[2022-01-26] MEDS: Lactated Ringers 1,000 ML 100 ML IVCONT (11:15)
--- NOTE | 2022-01-26 11:32 | MHC.SHP ---
Pre-Procedural Eval Section A Date of Service: 01/26/22 The patient is an INPATIENT: No Changes since office visit: Yes Patient answered all questions The History & Physical has been completed within 30 days and I have reviewed it.: No Section B Chief Complaint: Sacrococcygeal disorders, Details of Present Illness: as above Relevant Family History (Specify if Yes): No Relevant Social History: Other (specify) Present Medications: None Medical History: No relevant PMH History of Previous Operations: Relevant previous surgery/procedure and date(s) (left side done 10 weeks ago) Allergies: Allergies Allergy/AdvReac Type Severity Reaction Status Date / Time dexamethasone AdvReac Severe severe Verified 01/25/22 16:01 joint pain (did not wean off) Review of Systems Sugical H&P ROS: Negative: Cardiovascular, Respiratory, Neurological, Psychiatric, Hem-Onc, Allergic/Immunologic, Gastrointestinal, Genitourinary, Musculoskeletal, Integumentary, Endocrine and Eyes/Ears/Nose/Throat and Yes, Specify: Constitution (obesity) Exam Surgical H&P Exam: Normal: HEENT, Normal: Heart, Normal: Lungs, Normal: Extremities, Normal: Abdomen, Normal: Skin and Normal: Neurological Plan Diagnosis/Plan: Unchanged I have reviewed the history and physical and performed a pertinent physical examination on my patient. No changes have occurred unless specified.
--- NOTE | 2022-01-26 11:46 | W.PM.OPN ---
Operative Note Operative Note Date of Service: 11/03/21 Narrative: Right sacroiliac joint stabilisation procedure. posterior sacroiliac joint fusion using LINQ SI joint stabilization system with C-arm fluoroscopy for guidance.? Mr. Rodriguez is very pleasant 52 years old male who is suffering now the right sacroiliac joint insufficiency and sacroiliitis.??He failed conservative management of sacroiliitis.??He had left sided fusion 10 weeks ago with good results for the left sided pain. Now he wants to attent his right sided pain with the right sided procedure. He came today to receive the procedures as above.??The risks and benefits including bleeding, infection, peripheral nerve damage, failure to reduce the pain were explained to the patient.?The patient came to the operating room, he was positioned on the stretcher supine, [place] [employer] monitors were applied and patient was administered with general endotracheal anesthesia.??After that the patient was transferred on operating table and positioned prone with all pressure points protected. The patient was administered 2 grams cefazolin IV approximately 25 minutes before the start of the procedure.? Time-out was performed delineating correct site, side, and nature of the procedure, name and date of of the patient, risk of fire, need for DVT prophylaxis, need for antibiotics.? The patient was transferred?on?radiolucent table. All pressure points were protected again. Lower back and bilateral buttocks were prepped with ChloraPrep and draped with full body drape including ioban film.. 3. 5 cm posterior midline incision over the projection of the righ S1 foramina was performed.? Soft tissue dissection done to sacroiliac joint and thorough blind dissection was made in the direction of the?sacroiliac joint.? K-wire pin was inserted into the sacroiliac joint and guiding instrument was inserted into the joint using the pin as a guide and advanced into the joint on the intermittent anterior posterior and lateral views.??? After that pin was removed and rasping device was inserted to broach and rasp sacroiliac joint.? Once joint was prepared and inserted the structural allograft implant was hammered into the joint . It was packed with ortho biologics in and around the implant to provide better opportunity? for bones fusion.? The position of the allograft was confirmed radiographically.? The wound was irrigated, hemostasis was achieved, wound was closed in 2 layers.? Surgery was concluded by performing standard suture closing technique:? 0 Polysorb suture was used to close the wound and dimitris were used to apptoximate the level of the skin.? Injection of the lidocaine 2% mixed with bupivacaine 0.5% was injected into the wound before closure.? Skin glue was applied to the skin edges.? Sterile?dressing was applied with bacitracin ointment .? The patient tolerated procedure well he was awaken, extubated and taken outside of the operating room to PACU where he recovered uneventfully. He went home without immediate complications. he will be wearing an SI joint fixation belt for the 10 weeks after the procedure.
--- NOTE | 2022-01-26 11:48 | P.BOP_ITS ---
Brief Operative Note Date of Service: 01/26/22 Pre-op diagnosis: right sacroiliiac joint pain Post-op diagnosis: same Procedure: Right sacroiliac joint stabilisation procedure. posterior sacroiliac joint fusion using LINQ SI joint stabilization system with C-arm fluoroscopy for guidance.?. Implants: lyophilized cadaver bone with orto biologicals Surgeon: Dennis Cifuentes MD Anesthesia: GETA Was an Chemical Dependency Counselor used for this Procedure?: No Estimated blood loss (mL): 19 Pathology: none sent Condition: stable Disposition: PACU
[2022-01-26] MEDS: fentaNYL citrate/PF 100 MCG/2 ML VIAL 25 MCG IVPUSH (13:38)
[2022-01-26] MEDS: HYDROcodone Bit/Acetam 5/325 TABLET 1 TAB PO (13:50)
== END 2022-01-26 15:05 ==
LOC: HO.SSS 09:46
PROVIDERS: PCP Physician Assistant; Visit Provider Anesthesiology
PROC: (CPT 27279; principal; 2022-01-26 11:30)
DX: M53.3 Sacrococcygeal disorders, not elsewhere classified (principal); M46.1 Sacroiliitis, not elsewhere classified; G89.29 Other chronic pain; M47.27 Other spondylosis with radiculopathy, lumbosacral region; E11.9 Type 2 diabetes mellitus without complications; J45.909 Unspecified asthma, uncomplicated; G47.33 Obstructive sleep apnea (adult) (pediatric); Z79.51 Long term (current) use of inhaled steroids; Z79.899 Other long term (current) drug therapy; Z88.8 Allergy status to other drugs, medicaments and biological substances; Z86.16 Personal history of COVID-19; Z87.891 Personal history of nicotine dependence
CPT/HCPCS: 27279; C1713; J0330; J0690; J1100; J2250; J2405; J2795; J3010; J3370

== ENCOUNTER → 2022-01-31 08:24 | Outpatient (BNVA) | payer OTHER, SELFPAY | PROVIDERS: PCP Physician Assistant; Visit Provider Nurse Practitioner Family | DX: M53.3 Sacrococcygeal disorders, not elsewhere classified (principal); M51.16 Intervertebral disc disorders with radiculopathy, lumbar region; G89.29 Other chronic pain | CPT/HCPCS: 99212 ==

== ENCOUNTER → 2022-02-09 10:10 | Outpatient (BNVA) | payer OTHER, SELFPAY | PROVIDERS: PCP Physician Assistant; Visit Provider Anesthesiology | DX: M53.3 Sacrococcygeal disorders, not elsewhere classified (principal); M51.16 Intervertebral disc disorders with radiculopathy, lumbar region; G89.29 Other chronic pain | CPT/HCPCS: 99212 ==

== ENCOUNTER → 2022-02-23 10:22 | Outpatient (BNVA) | payer OTHER, SELFPAY | PROVIDERS: PCP Physician Assistant; Visit Provider Physician Assistant Surgical | DX: E66.3 Overweight (principal); Z68.28 Body mass index [BMI] 28.0-28.9, adult; Z98.84 Bariatric surgery status | CPT/HCPCS: 99212 ==

== ENCOUNTER → 2022-03-20 15:12 | Outpatient (BNVA) | payer OTHER, SELFPAY | PROVIDERS: PCP Physician Assistant; Visit Provider Anesthesiology | DX: Z13.89 Encounter for screening for other disorder (principal) ==

== ENCOUNTER → 2022-03-29 09:45 | Outpatient (BNVA) | payer OTHER, SELFPAY | PROVIDERS: PCP Physician Assistant; Visit Provider Anesthesiology | DX: M53.3 Sacrococcygeal disorders, not elsewhere classified (principal); G89.29 Other chronic pain; M51.16 Intervertebral disc disorders with radiculopathy, lumbar region | CPT/HCPCS: 99212 ==

== ENCOUNTER → 2022-04-19 15:09 | Outpatient (BNVA) | payer OTHER, SELFPAY | PROVIDERS: PCP Physician Assistant; Visit Provider Anesthesiology | DX: Z51.81 Encounter for therapeutic drug level monitoring (principal); M53.3 Sacrococcygeal disorders, not elsewhere classified; M51.16 Intervertebral disc disorders with radiculopathy, lumbar region; G89.29 Other chronic pain | CPT/HCPCS: 99212 ==

== ENCOUNTER → 2022-06-14 15:25 | Outpatient (BNVA) | payer OTHER, SELFPAY | PROVIDERS: PCP Physician Assistant; Visit Provider Anesthesiology | DX: Z79.891 Long term (current) use of opiate analgesic (principal) | CPT/HCPCS: 99211 ==

== ENCOUNTER → 2022-08-02 15:09 | Outpatient (BNVA) | payer OTHER, SELFPAY | PROVIDERS: PCP Physician Assistant; Visit Provider Anesthesiology | DX: G89.29 Other chronic pain (principal); M53.3 Sacrococcygeal disorders, not elsewhere classified; M51.16 Intervertebral disc disorders with radiculopathy, lumbar region; Z79.891 Long term (current) use of opiate analgesic; Z98.1 Arthrodesis status | CPT/HCPCS: 99212 ==

== ENCOUNTER 2022-09-20 16:08 | Outpatient (AMB) | payer OTHER, SELFPAY ==
--- NOTE | 2022-09-20 16:13 | A.OFFVIS_ITS ---
Intake Vital Signs 09/20/22 16:28 Height 6 ft Weight 217 lb BMI 29.4 BP 136/86 Blood Pressure Location Lt brachial Position Sitting Respiration 18 Pulse 78 Pulse Source Pulse Oximeter Pulse Oximetry (%) 96 Oxygen Delivery Method Room Air Intake Visit Reasons: Medication Count Intake Note: Patient comes in for pill count to Buprenorphine hcl 450 mcg film . He presented with 8 films and should have 0 films. Which he took last this morning at 5:30 am. Patient reports pain level today of 2-3/10. Allergies No Known Allergies Allergy (Verified 09/20/22 16:25) HPI HPI Comments History of Present Illness Details Daryl is back in my office for the count of his films of Belbuca. His lower currently taking Belbuca 450 micro g. Is prescribed 45 films of Belbuca are for month. He is not supposed to have any of his med in his possession today he presented with 8 films. This demonstrates responsible attitude to were the opioid medications. He is s/p right sacroiliac joint fusion on 01/26/22. He reports excellent pain relief since the procedure. He reports pain only in the thoracic area a and radiation of this pain to the lower neck. He is being prescribed Belbuca once in 2 month. He still has excess of the films, he still has 1 more refill of the same does as above in his pharmacy. FOR[facility]LY [facility], LATER [facility] Medical History Abdominal bloating Alcohol dependence Alcoholic fatty liver Allergic rhinitis Annual physical exam Anxiety Asthma Binge eating disorder BMI 36.0-36.9,adult BMI 37.0-37.9, adult BMI 38.0-38.9,adult Chronic idiopathic constipation COVID-19 vaccine series completed Ear discomfort Elevated cholesterol GERD (gastroesophageal reflux disease) History of COVID-19 Left hip pain Loss of sense of smell Lumbar disc disease Moderately severe major depressive disorder, single episode Non-insulin dependent type 2 diabetes mellitus Obese Open humeral fracture Otitis externa Otitis media Right hip pain Sacroiliac joint pain Sleep apnea Smoker Spondylosis of lumbosacral spine with radiculopathy Vitamin B12 deficiency Surgical History Fracture of surgical neck of humerus History of sleeve gastrectomy History of surgery History of surgical fusion joint History of umbilical hernia repair Hx of colonoscopy Family History Father Hypertension CVD (cardiovascular disease) Mother CVD (cardiovascular disease) Lymph node cancer Lymphoma Sister Arthritis in Crohn's disease Sister Heart disease CVD (cardiovascular disease) Migraine Brother IBS (irritable bowel syndrome) Social History Household Members: Significant Other and Children Housing: Apartment Are you a primary cna caregiver to a significant other at home: No Do you presently have visiting nurse or other home services: No Alcohol intake: former Year quit: 2017 Patient Tobacco Use Status: Former Tobacco user Quit Date: 2020 Tobacco use type: Cigarette Cigarette Packs Per Day: 1 Cigarettes Per Day: 20.0 Years Smoked: 35 e-Cigarette/Vaping Use: Never Used Second Hand Smoke Exposure: No service: No Current occupational status: unemployed and disabled Cognitive needs: Yes (Cane) Hearing needs: No Vision needs: No Review of Systems Const All systems reviewed & are unremarkable except as noted in HPI and below Physical Exam Vital Signs: Last Vital Signs Pulse 78 09/20/22 16:28 Resp 18 09/20/22 16:28 BP 136/86 09/20/22 16:28 Pulse Ox 96 09/20/22 16:28 Oxygen Delivery Method Room Air 09/20/22 16:28 BMI result Body Mass Index 29.4 Const General: cooperative and no acute distress Orientation/consciousness: patient oriented x3 Resp Effort & Inspection: normal respiratory effort and able to speak in complete se ntences Cardio Peripheral pulses: Peripheral pulses 2+ throughout Neuro General: patient oriented x3 Extrem General: Yes normal to inspection and Yes full ROM Assessment & Plan Assessment & Plan (1) Sacroiliac joint pain: Code(s): M53.3 - Sacrococcygeal disorders, not elsewhere classified (2) Chronic pain: Code(s): G89.29 - Other chronic pain Qualifiers: Chronic pain type: other chronic pain Qualified Code(s): G89.29 - Other chronic pain (3) Lumbar disc disease with radiculopathy: Code(s): M51.16 - Intervertebral disc disorders with radiculopathy, lumbar region Plan Patient is status post right sacroiliac joint fusion on 01/26/22. His reporting almost complete pain relief due to the SI joint fusion. This is his 2nd fusion. He is part of our Opioid program and is on Belbuca. He takes pill be Oka mostly tall help his pain in the upper thoracic spine and lower neck. He reports today with excess of Belbuca in his possession. He is very reliable patient. He still has 1 will be a refill in the pharmacy. He will give us a call when he is about to run out of Belbuca and I will send a new prescription of his Belbuca - to his pharmacy. Next appointment with me in 2 months. I will see him in 2 months. Coding Level of Care Code Est Pt Level 4 (81364) Diagnoses Sacroiliac joint pain M53.3 Chronic pain G89.29 Chronic pain type: other chronic pain Lumbar disc disease with radiculopathy M51.16
[2022-09-20 16:28] VITALS: BP 136/86; PULSE 78; RESP 18; O2SAT 96; BMI 29.4
== END 2022-09-20 16:21 | disposition home or self-care (01) ==
PROVIDERS: PCP Physician Assistant; Visit Provider Anesthesiology
DX: M53.3 Sacrococcygeal disorders, not elsewhere classified (principal); G89.29 Other chronic pain; M51.16 Intervertebral disc disorders with radiculopathy, lumbar region; Z79.891 Long term (current) use of opiate analgesic
CPT/HCPCS: 99213

== ENCOUNTER → 2022-09-20 16:08 | Outpatient (BNVA) | payer OTHER, SELFPAY | PROVIDERS: PCP Physician Assistant; Visit Provider Anesthesiology | DX: M51.16 Intervertebral disc disorders with radiculopathy, lumbar region (principal); M53.3 Sacrococcygeal disorders, not elsewhere classified; G89.29 Other chronic pain; Z79.891 Long term (current) use of opiate analgesic | CPT/HCPCS: 99212 ==

== ENCOUNTER 2022-11-15 14:47 | Outpatient (AMB) | payer OTHER, SELFPAY ==
--- NOTE | 2022-11-15 15:47 | A.OFFVIS_ITS ---
Intake Vital Signs 11/15/22 15:48 Height 6 ft Weight 219 lb 8 oz BMI 29.8 BP 140/88 H Respiration 14 Pulse 81 Pulse Oximetry (%) 96 Oxygen Delivery Method Room Air Intake Visit Reasons: Med count Allergies No Known Allergies Allergy (Verified 09/20/22 16:25) HPI HPI Comments History of Present Illness Details Daryl is a very pleasant 52 year old male who presents to the office for follow up chronic pain and chronic opioid therapy management. Patient is prescribed buprenorphine 450mcg buccal, 1.5 films daily as needed. Patient arrived today with the expectation of having 0 films, he presented 1 film which was counted in the presence of two staff members and returned to the patient in the original prescription container. This demonstrates responsible attitude toward patient's opioid medications. Pain is reported today as 2/10 and last dose of pain medication was taken at 05:00 this morning. Pain is well managed on current opioid regimen. Patient denies any recent changes or exacerbations of chronic back pain and states he is able to engage in activities of daily living with minimal interruption due to chronic pain. Patient denies side effects including somnolence, constipation, itching, dyspnea, rash, dizziness or weakness. FOR[facility]LY [facility], LAT[facility] Medical History Abdominal bloating Alcohol dependence Alcoholic fatty liver Allergic rhinitis Annual physical exam Anxiety Asthma Binge eating disorder BMI 36.0-36.9,adult BMI 37.0-37.9, adult BMI 38.0-38.9,adult Chronic idiopathic constipation COVID-19 vaccine series completed Ear discomfort Elevated cholesterol GERD (gastroesophageal reflux disease) History of COVID-19 Left hip pain Loss of sense of smell Lumbar disc disease Moderately severe major depressive disorder, single episode Non-insulin dependent type 2 diabetes mellitus Obese Open humeral fracture Otitis externa Otitis media Right hip pain Sacroiliac joint pain Sleep apnea Smoker Spondylosis of lumbosacral spine with radiculopathy Vitamin B12 deficiency Surgical History Fracture of surgical neck of humerus History of sleeve gastrectomy History of surgery History of surgical fusion joint History of umbilical hernia repair Hx of colonoscopy Family History Father Hypertension CVD (cardiovascular disease) Mother CVD (cardiovascular disease) Lymph node cancer Lymphoma Sister Arthritis in Crohn's disease Sister Heart disease CVD (cardiovascular disease) Migraine Brother IBS (irritable bowel syndrome) Social History Household Members: Significant Other and Children Housing: Apartment Are you a primary wound care nurse to a significant other at home: No Do you presently have visiting nurse or other home services: No Alcohol intake: former Year quit: 2017 Patient Tobacco Use Status: Former Tobacco user Quit Date: 2020 Tobacco use type: Cigarette Cigarette Packs Per Day: 1 Cigarettes Per Day: 20.0 Years Smoked: 35 e-Cigarette/Vaping Use: Never Used Second Hand Smoke Exposure: No service: No Current occupational status: unemployed and disabled Cognitive needs: Yes (Cane) Hearing needs: No Vision needs: No Review of Systems Const All systems reviewed & are unremarkable except as noted in HPI and below Physical Exam Vital Signs: Last Vital Signs Pulse 81 11/15/22 15:48 Resp 14 11/15/22 15:48 BP 140/88 H 11/15/22 15:48 Pulse Ox 96 11/15/22 15:48 Oxygen Delivery Method Room Air 11/15/22 15:48 BMI result Body Mass Index 29.8 General: awake, alert, oriented. Answers questions appropriately. Fully engaged in examination. Skin: warm, dry, intact HEENT: Normocephalic. Hearing intact. Cardiac: External chest normal in appearance. Respiratory: No cough, audible wheezing or stridor. Abdomen: without gross distension. MS: No obvious swelling or deformities. Able to transition from sit to stand unassisted. Ambulates with bilaterally normal heel strike and toe off Neurological: Oriented to person, place, time and situation. Thought process intact. Psychiatric: Appropriate mood and affect. Good judgment and insight. Assessment & Plan Assessment & Plan (1) Sacroiliac joint pain: Code(s): M53.3 - Sacrococcygeal disorders, not elsewhere classified (2) Chronic pain: Code(s): G89.29 - Other chronic pain Qualifiers: Chronic pain type: other chronic pain Qualified Code(s): G89.29 - Other chronic pain (3) Lumbar disc disease with radiculopathy: Code(s): M51.16 - Intervertebral disc disorders with radiculopathy, lumbar region Plan Patient is status post right sacroiliac joint fusion on 01/26/22. He reports almost complete pain relief after the SI joint fusion. Masspat was reviewed and without concerns. No obvious signs of diversion, abuse or misuse of the opioid medications. Will send in prescription for buprenorphine 450mcg films, take 1.5 films daily as needed with 1 refill. Patient to follow-up in the office in 2 months, sooner if needed. All questions and concerns have been answered and patient agrees with the plan. Medications: Refilled buprenorphine HCl 450 mcg buccal Q12H PRN 45 ea 1RF pain (scale score 4-6) 30 days Coding Level of Care Code Est Pt Level 3 (72940) Diagnoses Sacroiliac joint pain M53.3 Chronic pain G89.29 Chronic pain type: other chronic pain Lumbar disc disease with radiculopathy M51.16
[2022-11-15 15:48] VITALS: BP 140/88; PULSE 81; RESP 14; O2SAT 96; BMI 29.8
== END 2022-11-15 15:46 | disposition home or self-care (01) ==
PROVIDERS: PCP Physician Assistant; Visit Provider Anesthesiology
DX: G89.29 Other chronic pain (principal); M53.3 Sacrococcygeal disorders, not elsewhere classified; M51.16 Intervertebral disc disorders with radiculopathy, lumbar region; Z79.891 Long term (current) use of opiate analgesic
CPT/HCPCS: 99213

== ENCOUNTER → 2022-11-15 14:47 | Outpatient (BNVA) | payer OTHER, SELFPAY | PROVIDERS: PCP Physician Assistant; Visit Provider Anesthesiology | DX: M53.3 Sacrococcygeal disorders, not elsewhere classified (principal); G89.29 Other chronic pain; M51.16 Intervertebral disc disorders with radiculopathy, lumbar region; Z98.1 Arthrodesis status | CPT/HCPCS: 99212 ==

== ENCOUNTER 2022-12-12 14:53 | Outpatient (AMB) | payer OTHER, SELFPAY ==
[2022-12-12 15:11] VITALS: BP 106/74; PULSE 62; RESP 17; O2SAT 96; BMI 30.3
--- NOTE | 2022-12-12 15:11 | A.OFFPC_ITS ---
Vital Signs 12/12/22 15:11 Height 6 ft Weight 223 lb 8 oz BMI 30.3 BP 106/74 Blood Pressure Location Lt brachial Position Sitting Respiration 17 Pulse 62 Pulse Source Pulse Oximeter Pulse Oximetry (%) 96 Oxygen Delivery Method Room Air Intake Visit Reasons: Annual PE Intake Note: Patient is here today for a physical. 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 Accompanied by: Self / Same As Patient Allergies No Known Allergies Allergy (Verified 12/12/22 15:21) Medication List - Last Reconciled 12/12/22 by Adilson Gr PA-C albuterol sulfate 90 mcg/actuation 2 puffs PO Q6H PRN 30 days baclofen 20 mg PO Q8H 30 days buprenorphine HCl 450 mcg buccal Q12H PRN 30 days bupropion HCl 1 tab PO DAILY buspirone 30 mg PO TID citalopram 40 mg PO DAILY fluticasone propionate 50 mcg/actuation 2 sprays intranasal DAILY losartan 100 mg PO DAILY lovastatin 40 mg PO BEDTIME 90 days miscellaneous medical supply 1 ea miscellaneous DAILY 99 days Tobacco use date assessed: 12/12/22 Dental Screening Dental Screen Date: 12/12/22 Did you have a dental visit in the last 12 months?: Yes Did you have a dental problem in the last 6 months where you did not have access to dental care?: No Was dental information given to patient?: Patient has dentist HPI Annual PE HPI Details Daryl is a 51-year-old male here today for a f/u? . Patient has a past medical history significant for tobacco dependency, hyperlipidemia, GERD, history of bariatric surgery, obesity, history of alcohol abuse, chronic lumbar disc disease. .. Obesity:? Today's A1c at 30.3 He is status post bariatric surgery, feels well. Has lost significant amount of weight. Now off of prediabetic medication. ? .. ? Hyperlipidemia:? Continues on statin therapy without any side effect.? Patient's triglycerides elevated and total cholesterol borderline.? .. ? Impaired glucose metabolism: Has resolved since bariatric surgery ? ... ? Lumbar spine pain with bilateral lower extremity radiculopathy:? He is now followed by [facility] whom is managing his pain with Belbuca 450 mcg b.i.d.. He uses this medication on an as-needed basis at times. 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 . ? .. ? Hypertension: Patient reports his blood pressure has been stable on his current dose his blood pressure medications. Patient denies any headaches, shortness of breath, dizziness. Colon cancer screenin , tubular adenoma polyp found repeat 5 years Vaccine: Up-to-date with COVID vaccine, tetanus vaccine needs new pneumonia vaccine [facility] Medical History Anxiety COVID-19 vaccine series completed History of COVID-19 Sleep apnea Asthma Alcohol dependence Lumbar disc disease Elevated cholesterol BMI 36.0-36.9,adult BMI 37.0-37.9, adult BMI 38.0-38.9,adult Obese Annual physical exam Loss of sense of smell Vitamin B12 deficiency Non-insulin dependent type 2 diabetes mellitus Moderately severe major depressive disorder, single episode Binge eating disorder Open humeral fracture Smoker Ear discomfort Otitis externa Otitis media Sacroiliac joint pain Right hip pain Left hip pain Spondylosis of lumbosacral spine with radiculopathy Alcoholic fatty liver Abdominal bloating Chronic idiopathic constipation Allergic rhinitis GERD (gastroesophageal reflux disease) Surgical History History of surgical fusion joint History of surgery History of sleeve gastrectomy Hx of colonoscopy Fracture of surgical neck of humerus History of umbilical hernia repair Family History Father Hypertension CVD (cardiovascular disease) Mother CVD (cardiovascular disease) Lymph node cancer Lymphoma Sister Arthritis in Crohn's disease Sister Heart disease CVD (cardiovascular disease) Migraine Brother IBS (irritable bowel syndrome) Social History (Updated 12/12/22 @ 15:30 by Adilson Gr PA-C) Household Members: Significant Other and Children Housing: Apartment Are you a primary child adolescent care to a significant other at home: No Do you presently have visiting nurse or other home services: No Alcohol intake: former Year quit: 2018 Patient Tobacco Use Status: Current everyday Tobacco user Tobacco use type: Cigarette Cigarette Packs Per Day: 1 Cigarettes Per Day: 20.0 Years Smoked: 35 e-Cigarette/Vaping Use: Never Used Second Hand Smoke Exposure: No service: No Current occupational status: unemployed and disabled Cognitive needs: Yes (Cane) Hearing needs: No Vision needs: No Questionnaire PHQ-9 Over the last 2 weeks, how often have you been bothered by any of the following problems? 1. Little interest or pleasure in doing things: not at all 2. Feeling down, depressed, or hopeless: not at all 3. Trouble falling or staying asleep, or sleeping too much: not at all 4. Feeling tired or having little energy: not at all 5. Poor appetite or overeating: not at all 6. Feeling bad about yourself - or that you are a failure or have let yourself or your family down: not at all 7. Trouble concentrating on things, such as reading the newspaper or watching television: not at all 8. Moving or speaking so slowly that other people could have noticed. Or the opposite - being so fidgety or restless that you have been moving around a lot more than usual: not at all 9. Thoughts that you would be better off or of hurting yourself in some way: not at all Total score: 0 Depression Screening Interpretation: Negative Depression Screening Done: Yes 03685 - PHQ-9 Billing: Yes Source: Developed by Drs. Blake Causey, Christa Espinosa, Yonathan Rodriguez and colleagues, with an educational jeremie from [employer]. Thrive Questionnaire Date Thrive assessed: 12/12/22 I am a: Patient What is your living situation today?: I have a steady place to live Within the past 12 months, did the food you bought not last and you didn't have the money to get more?: Never true Within the past 12 months, did you worry whether your food would run out before you got money to buy more?: Never true Do you have trouble paying for medicines?: No Do you have trouble getting transportation to medical appointments?: No Do you have trouble paying your heating and electricity bill?: No Do you have trouble taking care of your child, family member or friend?: No Do you have trouble with day-to-day activities such as bathing, preparing meals, shopping, managing finances, etc.?: No Are you currently unemployed and looking for a job?: No Are you interested in more education?: No Please select the resources that you would like help with: None Currently or been in a relationship where the following occur: no concerns reported AUDIT C Alcohol Use Questionnaire (AUDIT-C) 1. How often do you have a drink containing alcohol?: Never 3. How often do you have six or more drinks on one occasion?: Never Total Score: 0 WILLARD-7 AMB Questionnaire WILLARD-7 Date WILLARD - 7 assessed: 12/12/22 Feeling nervous, anxious, or on edge: 0 = Not at all Not being able to stop or control worryin = Not at all Worrying too much about different things: 0 = Not at all Trouble relaxin = Not at all Being so restless that it is hard to sit still: 0 = Not at all Becoming easily annoyed or irritable: 0 = Not at all Feeling afraid as if something awful might happen: 0 = Not at all Total WILLARD-7 score (0-4 normal; 5-9 mild; 10-14 moderate; 15-21 severe): 0 Source: Developed by Drs. Blake Causey, Christa Espinosa, Yonathan Rodriguez and colleagues, with an educational jeremie from [employer]. WILLARD-7 Assessment Billing WILLARD-7 Assessment Tool: WILLARD-7 Assessment 74187 Review of Systems Const Denies body aches, Denies chills, Denies excessive sweating, Denies fatigue, Denies fever(s) and Denies headache(s) Eyes Denies blurry vision ENT Denies dysphagia, Denies vertigo, Denies dizziness, Denies headache(s), Denies hearing loss and Denies tinnitus Card Denies chest pain, Denies chest pain with activity, Denies syncope, Denies irregular heart rhythm and Denies dyspnea Resp Denies chest congestion, Denies cough, Denies hemoptysis, Denies dyspnea and Denies wheezing GI Denies abdominal pain, Denies melena, Denies hematochezia, Denies coffee ground emesis, Denies dysphagia, Denies diarrhea, Denies nausea and Denies vomiting Denies difficulty urinating, Denies dysuria, Denies urinary frequency, Denies urinary hesitancy and Denies urinary urgency Musc Denies arthralgias, Denies limited range of motion, Denies muscle cramps and Denies muscle weakness Skin/Breast Denies rash and Denies skin ulcer Neuro Denies Abnormal speech present, Denies confusion, Denies vertigo, Denies dizziness, Denies syncope, Denies headache(s), Denies memory loss and Denies seizure-like activity Psych Denies anxiety, Denies confusion, Denies depression, Denies memory loss, Denies panic attacks and Denies paranoia Endo Denies excessive sweating, Denies fatigue, Denies flushing, Denies polydipsia and Denies polyuria Aller/Immun Denies wheezing Physical exam (Primary Care) Vital Signs: Last Vital Signs Pulse 62 12/12/22 15:11 Resp 17 12/12/22 15:11 BP 106/74 12/12/22 15:11 Pulse Ox 96 12/12/22 15:11 Oxygen Delivery Method Room Air 12/12/22 15:11 BMI result Body Mass Index 30.3 BMI Assessment/Plan discussion: High Tobacco/Smoking Status: Tobacco use Status Tobacco use date assessed 06/21/21 12/12/22 15:16 Patient Tobacco Use Status Former Tobacco user 12/12/22 15:16 Tobacco use type Cigarette 12/12/22 15:16 e-Cigarette/Vaping Use Never Used 12/12/22 15:16 Are you ready to quit: No Tobacco cessation counseling provided: Yes Relapse Prevention: discussed the importance of a supportive environment, discussed negative mood or depression after quitting and discussed dietary, exercise and/or lifestyle changes Number of minutes spent counselin CPT code: 92151 - 4-10 Minutes PHQ-9: PHQ-9 Score PHQ-9: Total score 0 12/12/22 15:25 Depression Screening Interpretation: Negative Thrive Assessment: Date of Thrive Assessment Date Thrive assessed 12/12/22 12/12/22 15:16 Currently or been in a relationship where the following occur: no concerns reported Const Other: Obese General: cooperative, comfortable, no acute distress, alert and awake; No confusion Orientation/consciousness: oriented to person, oriented to place, patient oriented x3 and No confusion HENMT Head: Yes normocephalic Ears: external ears normal and TM's normal bilaterally Face and sinus: No sinus tenderness Mouth: Normal oral and palatal mucosa present and tongue normal Teeth and gingiva: dentition normal and gingiva normal Throat: Yes posterior oropharynx normal, Yes tonsils normal and Yes uvula m idline Eyes Conjunctivae: conjunctivae normal Sclerae: sclerae normal Pupils: Equal, round and reactive pupils present EOM: EOMs intact bilaterally Direct Ophthalmoscopy: No no photophobia Neck Neck: Yes no lymphadenopathy, No tender and Yes no JVD Thyroid: Thyroid normal Carotids: no bruits Chest Chest palpation & inspection: no tenderness Resp Effort & Inspection: normal respiratory effort, no audible wheezes, not labored and no stridor Auscultation: no crackles, no rales, no rhonchi and no wheezes Cardio Jugular venous distension: no JVD Rate: regular rate, not bradycardic and not tachycardic Rhythm: regular rhythm Bruits: no carotid bruits Peripheral pulses: Peripheral pulses 2+ throughout GI Inspection: Yes normal to inspection, No abdominal wall ecchymosis and No visible herniation Palpation (GI): Soft to palpation, nontender, no guarding, not rigid and No hepatosplenomegaly present Auscultation: normoactive bowel sounds General: Yes no CVA tenderness Back/Spine/Pelvis Back: no CVA tenderness and No back tenderness Cervical Spine: cervical ROM normal Thoracic/Lumbar Spine: thoracic and lumbar spine normal to inspection, straight leg raise negative bilaterally, No thoraco-lumbar ROM limited and No lumbar spinal tenderness Skin Lesions: no lesions Rashes: no rashes Wounds: no wounds Neuro General: oriented to person, oriented to place, patient oriented x3, CN's II-XI intact bilaterally and No confusion Cranial nerves: Yes Equal, round and reactive pupils present and Yes Normal accommodation reflex present Cognition (Neuro): normal cognition Speech: No Abnormal speech present Gait exam (Neuro): Normal gait present Motor exam (neuro): 5/5 motor strength present throughout Extrem Right upper extremity: full ROM; no cyanosis Left upper extremity: full ROM; no cyanosis Right lower extremity: no edema Left lower extremity: no edema Psych Appearance: grossly normal Mental Status: mental status grossly normal Affect: normal affect Attitude: cooperative Thought process: Normal thought process present Office Procedures Flu Questionnaire Does the patient have a severe egg allergy?: No Does the patient have severe life threatening allergies?: No Does the patient have a fever or illness today?: No Has the patient ever had Guillain-[place] Syndrome?: No Has the patient ever had any past reaction to a flu shot?: No Results AMB Hemoglobin A1c AMB Hemoglobin A1c 5.4 % Last Edit by VINI Ness on 12/12/22 15:25 Immunizations flu vacc [id number] 6mos up(PF) 60 mcg(15 mcgx4)/0.5 mL IM syringe Performing Provider: Adilson Gr PA-C [facility] Administered by: VINI Ness on 12/12/22 15:25 Dose Route Admin Location Dispensed Lot Number Expiration Date NDC Check Clerk 0.5 mL IM Left Deltoid 0.5 mL [id number] 09/09/23 [id number] [employer] VIS Given Date VIS Provided VIS Publication Date 12/12/22 Single Vaccine 20 Eligibility Eligibility Date Funding Source Not VFC Eligible 12/12/22 Private Results Reviewed Results Reviewed: Laboratory Last Values Hgb A1c (Clinic) 5.4 % (4.0-6.0) 12/12/22 15:10 Assessment and Plan Assessment & Plan (1) HTN (hypertension): Code(s): I10 - Essential (primary) hypertension Qualifiers: Hypertension type: essential hypertension Qualified Code(s): I10 - Essential (primary) hypertension Plan: Blood pressure acceptable today in office. Will continue him on current doses of blood pressure medications. Advised to do home blood pressure monitoring with goal blood pressure to be below 140/90. (2) HLD (hyperlipidemia): Code(s): E78.5 - Hyperlipidemia, unspecified Qualifiers: Hyperlipidemia type: mixed hyperlipidemia Qualified Code(s): E78.2 - Mixed hyperlipidemia Plan: Patient continues on lovastatin 40 mg. Advised to get fasting lipid panel to evaluate total cholesterol and LDL. Goal LDL to be below 130 and total cholesterol below 200 (3) Impaired glucose metabolism: Code(s): R73.09 - Other abnormal glucose Plan: Patient is status post bariatric surgery (gastric sleeve) , metformin has been discontinued Today's A1c appropriate 5.4 (4) Spondylosis of lumbosacral spine with radiculopathy: Code(s): M47.27 - Other spondylosis with radiculopathy, lumbosacral region Plan: Continues to follow pain management here at [facility]. He did report relief of his pain from most previous back injection. He anticipates a new back injection left side. Continues on Belbuca 450 mcg BID which manages his pain well.. (5) Obese: Code(s): E66.9 - Obesity, unspecified Qualifiers: Body mass index: BMI 39.0-39.9 Obesity classification: adult class 2 (BMI 35 - 39.9) Obesity type: due to excess calories Serious obesity comorbidity presence: with serious comorbidity Qualified Code(s): E66.01 - Morbid (severe) obesity due to excess calories; Z68.39 - Body mass index [BMI] 39.0-39.9, adult Plan: Again patient is status post gastric sleeve. Has lost significant amount of weight. BMI still remains around 30. He does report some dietary indiscretion though in general feels well. (6) Moderately severe major depressive disorder, single episode: Code(s): F32.2 - Major depressive disorder, single episode, severe without psychotic features Plan: Was seen and mental therapist and a psychiatrist who was prescribing his mental health medication. Has discontinue seeing mental health therapy has a feels he does not need this anymore. Needs PCP to prescribe mental health medications at this time. Will restart Celexa 40 mg (7) Tobacco dependence: Code(s): F17.200 - Nicotine dependence, unspecified, uncomplicated Plan: Patient does understand he needs to quit smoking. Has nicotine patches available to him. Orders: Orders Microalbumin, Random (w Creat) Today I10 - Essential (primary) hypertension Comprehensive [place]. Panel Fast Today I10 - Essential (primary) hypertension AMB Hemoglobin A1c Today R73.09 - Other abnormal glucose Influenza [id number] Immunization Today Z23 - Encounter for immunization Lipid Panel Today E78.2 - Mixed hyperlipidemia Prostate Specific Antigen Scr Today E78.2 - Mixed hyperlipidemia, Z12.5 - Encounter for screening for malignant neoplasm of prostate Pneumococcal 20 Immunization Today E78.2 - Mixed hyperlipidemia, Z23 - Encounter for immunization Medications: New pneumoc 20-umair conj-dip cr(PF) 0.5 mL IM ONCE 0.5 mL 0RF E78.2 - Mixed hyperlipidemia, Z23 - Encounter for immunization Changed From citalopram 40 mg PO DAILY F32.2 - Major depressive disorder, single episode, severe without psychotic features To citalopram 40 mg PO DAILY 90 days 90 tabs 2RF F32.2 - Major depressive disorder, single episode, severe without psychotic features Coding Level of Care Code Est Pt Prev Care 40-64y(39381) Diagnoses Essential hypertension I10 Hypertension type: essential hypertension Mixed hyperlipidemia E78.2 Hyperlipidemia type: mixed hyperlipidemia Impaired glucose metabolism R73.09 Spondylosis of lumbosacral spine with radiculopathy M47.27 Class 2 severe obesity due to excess calories with serious comorbidity and body mass index (BMI) of 39.0 to 39.9 in adult E66.01; Z68.39 Body mass index: BMI 39.0-39.9 Obesity classification: adult class 2 (BMI 35 - 39.9) Obesity type: due to excess calories Serious obesity comorbidity presence: with serious comorbidity Moderately severe major depressive disorder, single episode F32.2 Tobacco dependence F17.200 Additional Codes WILLARD-7 Assessment Billing - WILLARD-7 Assessment Tool: WILLARD-7 Assessment 33026 ([id number]) Vital Signs *Quality* - CPT code: 85242 - 4-10 Minutes ([id number])
== END 2022-12-12 15:44 | disposition home or self-care (01) ==
PROVIDERS: PCP Physician Assistant; Visit Provider Physician Assistant
DX: Z00.00 Encounter for general adult medical examination without abnormal findings (principal); R73.09 Other abnormal glucose; E66.01 Morbid (severe) obesity due to excess calories; I10 Essential (primary) hypertension; Z23 Encounter for immunization; F32.2 Major depressive disorder, single episode, severe without psychotic features; Z68.39 Body mass index [BMI] 39.0-39.9, adult; E78.2 Mixed hyperlipidemia; M47.27 Other spondylosis with radiculopathy, lumbosacral region; F17.210 Nicotine dependence, cigarettes, uncomplicated
CPT/HCPCS: 83036; 90471; 90472; 90677; 90686; 99396

== ENCOUNTER 2022-12-16 07:01 | Outpatient (REF) | payer OTHER, SELFPAY | END 2022-12-16 07:02 | disposition home or self-care (01) | LOC: HO.LAB 07:01 | PROVIDERS: PCP Physician Assistant; Visit Provider Physician Assistant | DX: I10 Essential (primary) hypertension (principal); E78.2 Mixed hyperlipidemia; Z12.5 Encounter for screening for malignant neoplasm of prostate | CPT/HCPCS: 36415; 80053; 80061; 82043; 82570; 84153 ==

== ENCOUNTER → 2023-01-09 08:35 | Outpatient (BNVA) | payer OTHER, SELFPAY | PROVIDERS: PCP Physician Assistant; Visit Provider Anesthesiology | DX: Z51.81 Encounter for therapeutic drug level monitoring (principal); F11.20 Opioid dependence, uncomplicated | CPT/HCPCS: 99211 ==

== ENCOUNTER 2023-03-19 15:13 | Outpatient (AMB) | payer OTHER, SELFPAY ==
--- NOTE | 2023-03-19 15:14 | MHC.OFFVIS ---
Intake Vital Signs 03/19/23 15:26 Height 6 ft Weight 234 lb 4 oz BMI 31.8 BP 138/88 Blood Pressure Location Lt brachial Position Sitting Respiration 18 Pulse 82 Pulse Source Pulse Oximeter Pulse Oximetry (%) 96 Oxygen Delivery Method Room Air Intake Visit Reasons: Follow up/lvm Intake Note: Patient comes in for pill count to Buprenorphine hcl 450 mcg film. Allergies No Known Allergies Allergy (Verified 03/19/23 15:25) HPI HPI Comments History of Present Illness Details Daryl is a very pleasant 52 year old male who presents to the office for follow up chronic pain and chronic opioid therapy management. He has long-term patient originally presented in my office with lower back pain complain, he was treated for this pain with sacroiliac joint fusion. He reports very minimal discomfort from the lower back. Reports most of the discomfort is coming from the neck with burning sensation in the upper shoulders as well as painful neck and occipital area back of the head. I suspected that he is suffering from spondylosis of the cervical spine. I offered him x-ray of the cervical spine. Next time in this office I will evaluate his x-ray. Patient is prescribed buprenorphine 450mcg buccal, 1.5 films daily as needed. Patient arrived today with the expectation of having 0 films, he presented 5 films which was counted in the presence of two staff members and returned to the patient in the original prescription container. This demonstrates responsible attitude toward patient's opioid medications. He denies side effects of the opioid medications. [facility] Medical History Anxiety COVID-19 vaccine series completed History of COVID-19 Sleep apnea Asthma Alcohol dependence Lumbar disc disease Elevated cholesterol BMI 36.0-36.9,adult BMI 37.0-37.9, adult BMI 38.0-38.9,adult Obese Annual physical exam Loss of sense of smell Vitamin B12 deficiency Non-insulin dependent type 2 diabetes mellitus Moderately severe major depressive disorder, single episode Binge eating disorder Open humeral fracture Smoker Ear discomfort Otitis externa Otitis media Sacroiliac joint pain Right hip pain Left hip pain Spondylosis of lumbosacral spine with radiculopathy Alcoholic fatty liver Abdominal bloating Chronic idiopathic constipation Allergic rhinitis GERD (gastroesophageal reflux disease) Surgical History History of surgical fusion joint History of surgery History of sleeve gastrectomy Hx of colonoscopy Fracture of surgical neck of humerus History of umbilical hernia repair Family History Father Hypertension CVD (cardiovascular disease) Mother CVD (cardiovascular disease) Lymph node cancer Lymphoma Sister Arthritis in Crohn's disease Sister Heart disease CVD (cardiovascular disease) Migraine Brother IBS (irritable bowel syndrome) Social History (Updated 12/12/22 @ 15:30 by Adilson Gr PA-C) Household Members: Significant Other and Children Housing: Apartment Are you a primary long term care phlebotomist to a significant other at home: No Do you presently have visiting nurse or other home services: No Alcohol intake: former Year quit: 2018 Patient Tobacco Use Status: Current everyday Tobacco user Tobacco use type: Cigarette Cigarette Packs Per Day: 1 Cigarettes Per Day: 20.0 Years Smoked: 35 e-Cigarette/Vaping Use: Never Used Second Hand Smoke Exposure: No service: No Current occupational status: unemployed and disabled Cognitive needs: Yes (Cane) Hearing needs: No Vision needs: No Review of Systems Const All systems reviewed & are unremarkable except as noted in HPI and below Physical Exam General: awake, alert, oriented. Answers questions appropriately. Fully engaged in examination. Skin: warm, dry, intact HEENT: Normocephalic. Hearing intact. Cardiac: External chest normal in appearance. Respiratory: No cough, audible wheezing or stridor. Abdomen: without gross distension. MS: No obvious swelling or deformities. Able to transition from sit to stand unassisted. Ambulates with bilaterally normal heel strike and toe off Neurological: Oriented to person, place, time and situation. Thought process intact. Psychiatric: Appropriate mood and affect. Good judgment and insight. Assessment & Plan Assessment & Plan (1) Sacroiliac joint pain: Code(s): M53.3 - Sacrococcygeal disorders, not elsewhere classified (2) Chronic pain: Code(s): G89.29 - Other chronic pain Qualifiers: Chronic pain type: other chronic pain Qualified Code(s): G89.29 - Other chronic pain (3) Lumbar disc disease with radiculopathy: Code(s): M51.16 - Intervertebral disc disorders with radiculopathy, lumbar region (4) Spondylosis of cervical joint without myelopathy: Code(s): M47.812 - Spondylosis without myelopathy or radiculopathy, cervical region Plan Patient is status post right sacroiliac joint fusion on 01/26/22. He reports almost complete pain relief after the SI joint fusion. Most of the pain he reports is in his neck. He is taking buprenorphine for his neck pain. Masspat was reviewed and without concerns. No obvious signs of diversion, abuse or misuse of the opioid medications. Will send in prescription for buprenorphine 450mcg films, take 1.5 films daily as needed with 1 refill. We agreed that I will send him for x-ray of the cervical spine. I may offer him some diagnostic injections I may offer him screened PNS. Patient to follow-up in the office in 2 months, sooner if needed. Orders: Orders XR cervical spine 4V Today M47.812 - Spondylosis without myelopathy or radiculopathy, cervical region Medications: Refilled buprenorphine HCl 450 mcg buccal Q12H 30 days PRN 45 ea 1RF pain (scale score 4-6) Coding Level of Care Code Est Pt Level 4 (48137) Diagnoses Sacroiliac joint pain M53.3 Other chronic pain G89.29 Chronic pain type: other chronic pain Lumbar disc disease with radiculopathy M51.16 Spondylosis of cervical joint without myelopathy M47.812
[2023-03-19 15:26] VITALS: BP 138/88; PULSE 82; RESP 18; O2SAT 96; BMI 31.8
== END 2023-03-19 15:31 | disposition home or self-care (01) ==
PROVIDERS: PCP Physician Assistant; Visit Provider Anesthesiology
DX: M53.3 Sacrococcygeal disorders, not elsewhere classified (principal); G89.29 Other chronic pain; M51.16 Intervertebral disc disorders with radiculopathy, lumbar region; M47.812 Spondylosis without myelopathy or radiculopathy, cervical region
CPT/HCPCS: 99214

== ENCOUNTER → 2023-03-19 15:13 | Outpatient (BNVA) | payer OTHER, SELFPAY | PROVIDERS: PCP Physician Assistant; Visit Provider Anesthesiology | DX: Z51.81 Encounter for therapeutic drug level monitoring (principal); F11.20 Opioid dependence, uncomplicated; M53.3 Sacrococcygeal disorders, not elsewhere classified; M51.16 Intervertebral disc disorders with radiculopathy, lumbar region; M47.812 Spondylosis without myelopathy or radiculopathy, cervical region; G89.29 Other chronic pain | CPT/HCPCS: 99212 ==

== ENCOUNTER 2023-03-21 08:09 | Outpatient (REF) | payer OTHER, SELFPAY ==
--- NOTE | ~2023-03-21 | XR_ITS ---
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 TECHNIQUE: 5 views of cervical spine including oblique views FINDINGS: Vertebral bodies are well aligned and intervertebral discs are preserved except of mild narrowing at the level of C5-C6 and C6-C7. Neuroforamina are narrowed bilaterally at the level of C5-C6 due to osteophytosis. Soft tissues unremarkable XR/XR cervical spine 4V IMPRESSION: Degenerative changes at the level of C5-C6 and C6-C7.
== END 2023-03-21 08:10 | disposition home or self-care (01) ==
LOC: HO.XRAY 08:09
PROVIDERS: PCP Physician Assistant; Visit Provider Anesthesiology
DX: M47.812 Spondylosis without myelopathy or radiculopathy, cervical region (principal)
CPT/HCPCS: 72050

== ENCOUNTER 2023-06-28 09:04 | Outpatient (AMB) | payer OTHER, SELFPAY ==
--- NOTE | 2023-06-28 09:23 | A.OFFVIS_ITS ---
Vital Signs 06/28/23 09:24 Height 6 ft Weight 237 lb 6 oz BMI 32.2 BP 138/62 Blood Pressure Location Lt brachial Position Sitting Respiration 18 Pulse 88 Pulse Source Pulse Oximeter Pulse Oximetry (%) 97 Oxygen Delivery Method Room Air Intake Visit Reasons: PILL COUNT Intake Note: Patient comes in for pill count. Reports pain 7/10. Allergies No Known Allergies Allergy (Verified 06/28/23 09:23) HPI Comments Details: Daryl is a very pleasant 52 year old male who presents to the office for follow up chronic pain and chronic opioid therapy management. He has long-term patient originally presented in my office with lower back pain complain, he was treated for this pain with sacroiliac joint fusion. He reports very minimal discomfort from the lower back. He reports minimal discomfort in the neck now. The x-ray which was done last time dictated as below. He does not want at this time to do any procedures but in the future if his pain will come back in the neck we can offer him diagnostic medial branch block and sprint PNS procedure. Patient is prescribed buprenorphine 450mcg buccal, 1.5 films daily as needed. The patient is supposed to have 0 films in his possession he has no films in his possession. He has 1 refill on his medication in his pharmacy so he will give us a call when he is due for the refill next time and we will prescribe him the medication for him. [facility] Medical History Anxiety COVID-19 vaccine series completed History of COVID-19 Sleep apnea Asthma Alcohol dependence Lumbar disc disease Elevated cholesterol BMI 36.0-36.9,adult BMI 37.0-37.9, adult BMI 38.0-38.9,adult Obese Annual physical exam Loss of sense of smell Vitamin B12 deficiency Non-insulin dependent type 2 diabetes mellitus Moderately severe major depressive disorder, single episode Binge eating disorder Open humeral fracture Smoker Ear discomfort Otitis externa Otitis media Sacroiliac joint pain Right hip pain Left hip pain Spondylosis of lumbosacral spine with radiculopathy Alcoholic fatty liver Abdominal bloating Chronic idiopathic constipation Allergic rhinitis GERD (gastroesophageal reflux disease) Surgical History History of surgical fusion joint History of surgery History of sleeve gastrectomy Hx of colonoscopy Fracture of surgical neck of humerus History of umbilical hernia repair Family History Father Hypertension CVD (cardiovascular disease) Mother CVD (cardiovascular disease) Lymph node cancer Lymphoma Sister Arthritis in Crohn's disease Sister Heart disease CVD (cardiovascular disease) Migraine Brother IBS (irritable bowel syndrome) Social History (Updated 12/12/22 @ 15:30 by Adilson Gr PA-C) Household Members: Significant Other and Children Housing: Apartment Are you a primary healthcare financial analyst to a significant other at home: No Do you presently have visiting nurse or other home services: No Alcohol intake: former Year quit: 2018 Patient Tobacco Use Status: Current everyday Tobacco user Tobacco use type: Cigarette Cigarette Packs Per Day: 1 Cigarettes Per Day: 20.0 Years Smoked: 35 e-Cigarette/Vaping Use: Never Used Second Hand Smoke Exposure: No service: No Current occupational status: unemployed and disabled Cognitive needs: Yes (Cane) Hearing needs: No Vision needs: No Review of Systems Const All systems reviewed & are unremarkable except as noted in HPI and below Physical Exam Vital Signs: Last Vital Signs Pulse 88 06/28/23 09:24 Resp 18 06/28/23 09:24 BP 138/62 06/28/23 09:24 Pulse Ox 97 06/28/23 09:24 Oxygen Delivery Method Room Air 06/28/23 09:24 BMI result Body Mass Index 32.2 General: awake, alert, oriented. Answers questions appropriately. Fully engaged in examination. Skin: warm, dry, intact HEENT: Normocephalic. Hearing intact. Cardiac: External chest normal in appearance. Respiratory: No cough, audible wheezing or stridor. Abdomen: without gross distension. MS: No obvious swelling or deformities. Able to transition from sit to stand unassisted. Ambulates with bilaterally normal heel strike and toe off Neurological: Oriented to person, place, time and situation. Thought process intact. Psychiatric: Appropriate mood and affect. Good judgment and insight. 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 TECHNIQUE: 5 views of cervical spine including oblique views FINDINGS: Vertebral bodies are well aligned and intervertebral discs are preserved except of mild narrowing at the level of C5-C6 and C6-C7. Neuroforamina are narrowed bilaterally at the level of C5-C6 due to osteophytosis. Soft tissues unremarkable. Assessment & Plan Assessment & Plan (1) Sacroiliac joint pain: Code(s): M53.3 - Sacrococcygeal disorders, not elsewhere classified Category: Medical (2) Chronic pain: Code(s): G89.29 - Other chronic pain Category: Medical Qualifiers: Chronic pain type: other chronic pain Qualified Code(s): G89.29 - Other chronic pain (3) Lumbar disc disease with radiculopathy: Code(s): M51.16 - Intervertebral disc disorders with radiculopathy, lumbar region Category: Medical (4) Spondylosis of cervical joint without myelopathy: Code(s): M47.812 - Spondylosis without myelopathy or radiculopathy, cervical region Category: Medical Plan Patient is status post right sacroiliac joint fusion on 01/26/22. He reports almost complete pain relief after the SI joint fusion. He reports minimal discomfort. The x-ray is as above. Spondylosis is suspected. If neck pain will return diagnostic injection will be offered following the sprint PNS. Jennifer was reviewed and without concerns. No obvious signs of diversion, abuse or misuse of the opioid medications. He has prescription refill in the pharmacy. When he will run out of the script he will give us a call and I will renew his scripts buprenorphine with 1 refill. Patient to follow-up in the office in 2 months, sooner if needed. Patient Instructions: I here by testify that I spent 32 minutes in conversation with this patient as well as evaluating his diagnostic studies and organizing this note.
[2023-06-28 09:24] VITALS: BP 138/62; PULSE 88; RESP 18; O2SAT 97; BMI 32.2
== END 2023-06-28 09:36 | disposition home or self-care (01) ==
PROVIDERS: PCP Physician Assistant; Visit Provider Anesthesiology
DX: G89.29 Other chronic pain (principal); M53.3 Sacrococcygeal disorders, not elsewhere classified; M51.16 Intervertebral disc disorders with radiculopathy, lumbar region; Z79.891 Long term (current) use of opiate analgesic; M47.812 Spondylosis without myelopathy or radiculopathy, cervical region
CPT/HCPCS: 99214

== ENCOUNTER → 2023-06-28 09:04 | Outpatient (BNVA) | payer OTHER, SELFPAY | PROVIDERS: PCP Physician Assistant; Visit Provider Anesthesiology | DX: M47.812 Spondylosis without myelopathy or radiculopathy, cervical region (principal); G89.4 Chronic pain syndrome; M53.3 Sacrococcygeal disorders, not elsewhere classified; M51.16 Intervertebral disc disorders with radiculopathy, lumbar region; Z79.891 Long term (current) use of opiate analgesic | CPT/HCPCS: 99212 ==

== ENCOUNTER 2023-06-28 15:05 | Outpatient (AMB) | payer OTHER, SELFPAY ==
[2023-06-28 15:14] VITALS: BP 102/74; PULSE 78; O2SAT 98; BMI 32.0
--- NOTE | 2023-06-28 15:14 | MHC.PC.OV ---
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 Accompanied by: Self / Same As Patient Allergies No Known Allergies Allergy (Verified 06/28/23 15:22) Medication List - Last Reconciled 06/28/23 by Adilson Gr PA-C albuterol sulfate 90 mcg/actuation 2 puffs PO Q6H PRN 30 days baclofen 20 mg PO Q8H 30 days buprenorphine HCl 450 mcg buccal Q12H PRN 30 days bupropion HCl XL 1 tab PO DAILY buspirone 30 mg PO TID citalopram 40 mg PO DAILY 90 days fluticasone propionate 50 mcg/actuation 2 sprays intranasal DAILY losartan 100 mg PO DAILY lovastatin 40 mg PO BEDTIME 90 days miscellaneous medical supply 1 ea miscellaneous DAILY 99 days Tobacco use date assessed: 06/28/23 Dental Screening Dental Screen Date: 06/28/23 Did you have a dental visit in the last 12 months?: No Did you have a dental problem in the last 6 months where you did not have access to dental care?: Yes Was dental information given to patient?: Yes HPI 6 month f/u HPI Details Daryl is a 53-year-old male here today for a follow-up visit. . Patient has a past medical history significant for tobacco dependency, hyperlipidemia, GERD, history of bariatric surgery, obesity, history of alcohol abuse, chronic lumbar disc disease. .. Obesity:? He is status post bariatric surgery, feels well. Unfortunately over the winter has gained some weight back due to inactivity. Now off of prediabetic medication. ? .. ? Hyperlipidemia:? Continues on statin therapy without any side effect.? Patient's triglycerides elevated and total cholesterol borderline.? .. ? Impaired glucose metabolism: Has resolved since bariatric surgery ? ... ? Lumbar spine pain with bilateral lower extremity radiculopathy:? He is now followed by [facility] whom is managing his pain with Belbuca 450 mcg b.i.d.. He uses this medication on an as-needed basis at times. 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 . ? .. ? Hypertension: Patient reports his blood pressure has been stable on his current dose his blood pressure medications. Patient denies any headaches, shortness of breath, dizziness. Laboratory Tests 07/13/21 12/16/22 06:03 07:10 POC Glucose 122 H Cholesterol 197 LDL Cholesterol, C alc 113 H PFS Medical History Anxiety COVID-19 vaccine series completed History of COVID-19 Sleep apnea Asthma Alcohol dependence Lumbar disc disease Elevated cholesterol BMI 36.0-36.9,adult BMI 37.0-37.9, adult BMI 38.0-38.9,adult Obese Annual physical exam Loss of sense of smell Vitamin B12 deficiency Non-insulin dependent type 2 diabetes mellitus Moderately severe major depressive disorder, single episode Binge eating disorder Open humeral fracture Smoker Ear discomfort Otitis externa Otitis media Sacroiliac joint pain Right hip pain Left hip pain Spondylosis of lumbosacral spine with radiculopathy Alcoholic fatty liver Abdominal bloating Chronic idiopathic constipation Allergic rhinitis GERD (gastroesophageal reflux disease) Surgical History History of surgical fusion joint History of surgery History of sleeve gastrectomy Hx of colonoscopy Fracture of surgical neck of humerus History of umbilical hernia repair Family History Father Hypertension CVD (cardiovascular disease) Mother CVD (cardiovascular disease) Lymph node cancer Lymphoma Sister Arthritis in Crohn's disease Sister Heart disease CVD (cardiovascular disease) Migraine Brother IBS (irritable bowel syndrome) Social History Household Members: Significant Other and Children Housing: Apartment Are you a primary care provider to a significant other at home: No Do you presently have visiting nurse or other home services: No Alcohol intake: former Year quit: 2018 Patient Tobacco Use Status: Current everyday Tobacco user Tobacco use type: Cigarette Cigarette Packs Per Day: 1 Cigarettes Per Day: 20.0 Years Smoked: 35 e-Cigarette/Vaping Use: Never Used Second Hand Smoke Exposure: No service: No Current occupational status: unemployed and disabled Cognitive needs: Yes (Cane) Hearing needs: No Vision needs: No Questionnaire PHQ-9 Over the last 2 weeks, how often have you been bothered by any of the following problems? 1. Little interest or pleasure in doing things: not at all 2. Feeling down, depressed, or hopeless: not at all 3. Trouble falling or staying asleep, or sleeping too much: not at all 4. Feeling tired or having little energy: not at all 5. Poor appetite or overeating: not at all 6. Feeling bad about yourself - or that you are a failure or have let yourself or your family down: not at all 7. Trouble concentrating on things, such as reading the newspaper or watching television: not at all 8. Moving or speaking so slowly that other people could have noticed. Or the opposite - being so fidgety or restless that you have been moving around a lot more than usual: not at all 9. Thoughts that you would be better off or of hurting yourself in some way: not at all Total score: 0 Depression Screening Interpretation: Negative Depression Screening Done: Yes 10290 - PHQ-9 Billing: Yes Source: Developed by Drs. Blake Causey, Christa Espinosa, Yonathan Rodriguez and colleagues, with an educational jeremie from [employer]. Thrive Questionnaire Date Thrive assessed: 06/28/23 I am a: Patient What is your living situation today?: I have a steady place to live Within the past 12 months, did the food you bought not last and you didn't have the money to get more?: Never true Within the past 12 months, did you worry whether your food would run out before you got money to buy more?: Never true Do you have trouble paying for medicines?: No Do you have trouble getting transportation to medical appointments?: No Do you have trouble paying your heating and electricity bill?: No Do you have trouble taking care of your child, family member or friend?: No Do you have trouble with day-to-day activities such as bathing, preparing meals, shopping, managing finances, etc.?: No Are you currently unemployed and looking for a job?: No Are you interested in more education?: No Please select the resources that you would like help with: None Currently or been in a relationship where the following occur: no concerns reported THRIVE Score: 0 AUDIT C Alcohol Use Questionnaire (AUDIT-C) 1. How often do you have a drink containing alcohol?: Never 3. How often do you have six or more drinks on one occasion?: Never Total Score: 0 WILLARD-7 AMB Questionnaire WILLARD-7 Date WILLARD - 7 assessed: 06/28/23 Feeling nervous, anxious, or on edge: 0 = Not at all Not being able to stop or control worryin = Not at all Worrying too much about different things: 0 = Not at all Trouble relaxin = Not at all Being so restless that it is hard to sit still: 0 = Not at all Becoming easily annoyed or irritable: 0 = Not at all Feeling afraid as if something awful might happen: 0 = Not at all Total WILLARD-7 score (0-4 normal; 5-9 mild; 10-14 moderate; 15-21 severe): 0 Source: Developed by Drs. Blake Causey, Christa Espinosa, Yonathan Rodriguez and colleagues, with an educational jeremie from [employer]. WILLARD-7 Assessment Billing WILLARD-7 Assessment Tool: WILLARD-7 Assessment 43899 Review of Systems Const Denies headache(s) Eyes Denies loss of vision ENT Denies vertigo, Denies dizziness, Denies headache(s) and Denies sore throat Card Denies chest pain, Denies leg edema and Denies lightheadedness Resp Denies cough, Denies hemoptysis and Denies wheezing GI Denies abdominal pain, Denies melena, Denies constipation, Denies diarrhea and Denies vomiting Denies dysuria, Denies urinary frequency and Denies urinary urgency Musc Denies arthralgias, Denies joint swelling, Denies numbness and Denies tingling Neuro Denies Abnormal speech present, Denies behavioral changes, Denies vertigo, Denies dizziness, Denies headache(s), Denies loss of vision, Denies memory loss, Denies numbness and Denies tingling Psych Denies anxiety, Denies behavioral changes, Denies depression, Denies memory loss and Denies panic attacks Ken/Lymph Denies easy bleeding and Denies easy bruising Aller/Immun Denies wheezing Physical exam (Primary Care) Vital Signs: Last Vital Signs Pulse 78 06/28/23 15:14 BP 102/74 06/28/23 15:14 Pulse Ox 98 06/28/23 15:14 Oxygen Delivery Method Room Air 06/28/23 15:14 BMI result Body Mass Index 32.0 BMI Assessment/Plan discussion: High BMI High, discussed plan: lifestyle, weight reduction, dietary and physical activity Tobacco/Smoking Status: Tobacco use Status Tobacco use date assessed 06/28/23 06/28/23 15:19 Patient Tobacco Use Status Current everyday Tobacco 06/28/23 15:19 Tobacco use type Cigarette 06/28/23 15:19 e-Cigarette/Vaping Use Never Used 06/28/23 15:19 Are you ready to quit: No Tobacco cessation counseling provided: Yes Items discussed: Nicotine replacement Relapse Prevention: discussed the importance of a supportive environment, discussed negative mood or depression after quitting, weight gain after smoking is common and discussed dietary, exercise and/or lifestyle changes Number of minutes spent counselin CPT code: 14680 - 4-10 Minutes PHQ-9: PHQ-9 Score PHQ-9: Total score 0 06/28/23 15:24 Depression Screening Interpretation: Negative Thrive Assessment: Date of Thrive Assessment Date Thrive assessed 06/28/23 06/28/23 15:19 Currently or been in a relationship where the following occur: no concerns reported Const Other: OBESE General: healthy appearing, no acute distress, alert and awake Nutritional Appearance: well nourished Orientation/consciousness: oriented to person, oriented to place and oriented to time HENMT Ears: TM's normal bilaterally General nose exam: Normal nasal mucous membranes and turbinates present Eyes Conjunctivae: conjunctivae normal Sclerae: sclerae normal Pupils: Equal, round and reactive pupils present Neck Neck: Yes no lymphadenopathy and Yes no JVD Thyroid: Thyroid normal Carotids: no bruits Resp Effort & Inspection: normal respiratory effort and not tachypneic Auscultation: no crackles, no rales, no rhonchi and no wheezes Cardio Rate: regular rate Rhythm: regular rhythm Heart sounds: no murmurs and normal S1 and S2 GI Palpation (GI): Soft to palpation, nontender, no hepatomegaly and no splenomegaly Auscultation: normal bowel sounds Skin General skin exam: no rashes or lesions noted and dry skin Neuro General: oriented to person, oriented to place and oriented to time Cranial nerves: Yes Equal, round and reactive pupils present Speech: No Abnormal speech present Gait exam (Neuro): Normal gait present Motor exam (neuro): no tremor noted Extrem Right upper extremity: full ROM Left upper extremity: full ROM Right lower extremity: full ROM; no edema Left lower extremity: full ROM; no edema Psych Mental Status: mental status grossly normal Speech and movement: Normal speech and movement present Affect: normal affect Attitude: cooperative Thought process: Normal thought process present Assessment and Plan Assessment & Plan (1) HTN (hypertension): Code(s): I10 - Essential (primary) hypertension Qualifiers: Hypertension type: essential hypertension Qualified Code(s): I10 - Essential (primary) hypertension Plan: Blood pressure acceptable today in office. Will continue him on current doses of blood pressure medications. Advised to do home blood pressure monitoring with goal blood pressure to be below 140/90. (2) HLD (hyperlipidemia): Code(s): E78.5 - Hyperlipidemia, unspecified Qualifiers: Hyperlipidemia type: mixed hyperlipidemia Qualified Code(s): E78.2 - Mixed hyperlipidemia Plan: Patient continues on lovastatin 40 mg. Advised to get fasting lipid panel to evaluate total cholesterol and LDL. Goal LDL to be below 130 and total cholesterol below 200 (3) Impaired glucose metabolism: Code(s): R73.09 - Other abnormal glucose Plan: Patient is status post bariatric surgery (gastric sleeve) , metformin has been discontinued. Unfortunately gained a few lb since last office visit. Reports due to dietary indiscretion and sedative lifestyle during the winter. Will continue follow fasting blood sugar and A1c (4) Spondylosis of lumbosacral spine with radiculopathy: Code(s): M47.27 - Other spondylosis with radiculopathy, lumbosacral region Plan: Continues to follow pain management here at [facility]. He did report relief of his pain from most previous back injection. He anticipates a new back injection left side. Continues on Belbuca 450 mcg BID which manages his pain well.. (5) Obese: Code(s): E66.9 - Obesity, unspecified Qualifiers: Body mass index: BMI 39.0-39.9 Obesity classification: adult class 2 (BMI 35 - 39.9) Obesity type: due to excess calories Serious obesity comorbidity presence: with serious comorbidity Qualified Code(s): E66.01 - Morbid (severe) obesity due to excess calories; Z68.39 - Body mass index [BMI] 39.0-39.9, adult Plan: Again patient is status post gastric sleeve. Today's BMI of 32.0 Has lost significant amount of weight. BMI still remains around 30. He does report some dietary indiscretion though in general feels well. (6) Moderately severe major depressive disorder, single episode: Code(s): F32.2 - Major depressive disorder, single episode, severe without psychotic features Plan: Patient reports his mental health has been fairly stable. 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 Denies any SI or HI. (7) Tobacco dependence: Code(s): F17.200 - Nicotine dependence, unspecified, uncomplicated Plan: Patient does understand he needs to quit smoking. Finds it very difficult to quit smoking, he does report his girlfriend does smoke as well. Has nicotine patches available to him. Orders: Orders Comprehensive [place]. Panel Fast 06/28/23 E78.2 - Mixed hyperlipidemia Lipid Panel 06/28/23 E78.2 - Mixed hyperlipidemia Hemoglobin A1c 06/28/23 R73.09 - Other abnormal glucose Microalbumin, Random (w Creat) 06/28/23 E78.2 - Mixed hyperlipidemia Prostate Specific Antigen Scr 06/28/23 E78.2 - Mixed hyperlipidemia, Z12.5 - Encounter for screening for malignant neoplasm of prostate Patient Instructions: Goals: Blood pressure to remain below 140/90, goal LDL to remain below 130, quit smoking Barriers: Medication compliance Coding Level of Care Code Est Pt Level 4 (64449) Diagnoses Essential hypertension I10 Hypertension type: essential hypertension Mixed hyperlipidemia E78.2 Hyperlipidemia type: mixed hyperlipidemia Impaired glucose metabolism R73.09 Spondylosis of lumbosacral spine with radiculopathy M47.27 Class 2 severe obesity due to excess calories with serious comorbidity and body mass index (BMI) of 39.0 to 39.9 in adult E66.01; Z68.39 Body mass index: BMI 39.0-39.9 Obesity classification: adult class 2 (BMI 35 - 39.9) Obesity type: due to excess calories Serious obesity comorbidity presence: with serious comorbidity Moderately severe major depressive disorder, single episode F32.2 Tobacco dependence F17.200 Additional Codes WILLARD-7 Assessment Billing - WILLARD-7 Assessment Tool: WILLARD-7 Assessment 93331 ([id number]) Vital Signs *Quality* - CPT code: 64062 - 4-10 Minutes ([id number])
== END 2023-06-28 15:36 | disposition home or self-care (01) ==
PROVIDERS: PCP Physician Assistant; Visit Provider Physician Assistant
DX: I10 Essential (primary) hypertension (principal); Z68.39 Body mass index [BMI] 39.0-39.9, adult; E66.01 Morbid (severe) obesity due to excess calories; F32.2 Major depressive disorder, single episode, severe without psychotic features; E78.2 Mixed hyperlipidemia; R73.09 Other abnormal glucose; M47.27 Other spondylosis with radiculopathy, lumbosacral region; F17.200 Nicotine dependence, unspecified, uncomplicated
CPT/HCPCS: 99214

== ENCOUNTER 2023-08-27 14:56 | Outpatient (AMB) | payer OTHER, SELFPAY ==
[2023-08-27 15:08] VITALS: BP 102/62; BMI 32.0
--- NOTE | 2023-08-27 15:08 | A.OFFVIS_ITS ---
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 He has long-term patient originally presented in my office with lower back pain complain, he was treated for this pain with sacroiliac joint fusion. He reports very minimal discomfort from the lower back. He reports minimal discomfort in the neck now. The x-ray which was done last time dictated as below. He does not want at this time to do any procedures but in the future if his pain will come back in the neck we can offer him diagnostic medial branch block and sprint PNS procedure. He reports significant changes with his teeth I recommended him to go to the dentist. I reminded him that with buprenorphine he needs to observe certain oral hygienic rules, to brush his teeth very thoroughly 2 hours after application of the Belbuca, avoid too hot and 2 called beverages, use mouth washes or brush teeth after each meal intake. Patient is prescribed buprenorphine 450mcg buccal, 1.5 films daily as needed. The patient is supposed to have 11 films in his possession he has 13 films in hi s possession. He has 1 refill on his medication in his pharmacy so he will give us a call when he is due for the refill next time and we will prescribe him the medication for him. [facility] Medical History Anxiety COVID-19 vaccine series completed History of COVID-19 Sleep apnea Asthma Alcohol dependence Lumbar disc disease Elevated cholesterol BMI 36.0-36.9,adult BMI 37.0-37.9, adult BMI 38.0-38.9,adult Obese Annual physical exam Loss of sense of smell Vitamin B12 deficiency Non-insulin dependent type 2 diabetes mellitus Moderately severe major depressive disorder, single episode Binge eating disorder Open humeral fracture Smoker Ear discomfort Otitis externa Otitis media Sacroiliac joint pain Right hip pain Left hip pain Spondylosis of lumbosacral spine with radiculopathy Alcoholic fatty liver Abdominal bloating Chronic idiopathic constipation Allergic rhinitis GERD (gastroesophageal reflux disease) Surgical History History of surgical fusion joint History of surgery History of sleeve gastrectomy Hx of colonoscopy Fracture of surgical neck of humerus History of umbilical hernia repair Family History Father Hypertension CVD (cardiovascular disease) Mother CVD (cardiovascular disease) Lymph node cancer Lymphoma Sister Arthritis in Crohn's disease Sister Heart disease CVD (cardiovascular disease) Migraine Brother IBS (irritable bowel syndrome) Social History Household Members: Significant Other and Children Housing: Apartment Are you a primary health care marketing manager to a significant other at home: No Do you presently have visiting nurse or other home services: No Alcohol intake: former Year quit: 2018 Patient Tobacco Use Status: Current everyday Tobacco user Tobacco use type: Cigarette Cigarette Packs Per Day: 1 Cigarettes Per Day: 20.0 Years Smoked: 35 e-Cigarette/Vaping Use: Never Used Second Hand Smoke Exposure: No service: No Current occupational status: unemployed and disabled Cognitive needs: Yes (Cane) Hearing needs: No Vision needs: No Review of Systems Const All systems reviewed & are unremarkable except as noted in HPI and below Physical Exam Vital Signs: Last Vital Signs BP 102/62 08/27/23 15:08 BMI result Body Mass Index 32.0 General: awake, alert, oriented. Answers questions appropriately. Fully engaged in examination. Skin: warm, dry, intact HEENT: Normocephalic. Hearing intact. Cardiac: External chest normal in appearance. Respiratory: No cough, audible wheezing or stridor. Abdomen: without gross distension. MS: No obvious swelling or deformities. Able to transition from sit to stand unassisted. Ambulates with bilaterally normal heel strike and toe off Neurological: Oriented to person, place, time and situation. Thought process intact. Psychiatric: Appropriate mood and affect. Good judgment and insight. Assessment & Plan Assessment & Plan (1) Sacroiliac joint pain: Code(s): M53.3 - Sacrococcygeal disorders, not elsewhere classified Category: Medical (2) Chronic pain: Code(s): G89.29 - Other chronic pain Category: Medical Qualifiers: Chronic pain type: other chronic pain Qualified Code(s): G89.29 - Other chronic pain (3) Lumbar disc disease with radiculopathy: Code(s): M51.16 - Intervertebral disc disorders with radiculopathy, lumbar region Category: Medical (4) Spondylosis of cervical joint without myelopathy: Code(s): M47.812 - Spondylosis without myelopathy or radiculopathy, cervical region Category: Medical Plan Patient is status post right sacroiliac joint fusion on 01/26/22. He reports almost complete pain relief after the SI joint fusion. He reports minimal discomfort. The x-ray is as above. Spondylosis is suspected. If neck pain will return diagnostic injection will be offered following the sprint PNS. He currently is on Belbuca 450 mcg 1 filled twice a day. Dental hygiene is discussed with the patient the dental hygiene rules reminded to the patient. Masspat was reviewed and without concerns. No obvious signs of diversion, abuse or misuse of the opioid medications. He has prescription refill in the pharmacy. When he will run out of the script he will give us a call and I will renew his scripts buprenorphine with 1 refill. Patient to follow-up in the office in 2 months, sooner if needed. Coding Level of Care Code Est Pt Level 3 (75619) Diagnoses Sacroiliac joint pain M53.3 Other chronic pain G89.29 Chronic pain type: other chronic pain Lumbar disc disease with radiculopathy M51.16 Spondylosis of cervical joint without myelopathy M47.812
== END 2023-08-27 15:48 | disposition home or self-care (01) ==
PROVIDERS: PCP Physician Assistant; Visit Provider Anesthesiology
DX: M53.3 Sacrococcygeal disorders, not elsewhere classified (principal); G89.29 Other chronic pain; M51.16 Intervertebral disc disorders with radiculopathy, lumbar region; M47.812 Spondylosis without myelopathy or radiculopathy, cervical region
CPT/HCPCS: 99213

== ENCOUNTER → 2023-08-27 14:56 | Outpatient (BNVA) | payer OTHER, SELFPAY | PROVIDERS: PCP Physician Assistant; Visit Provider Anesthesiology | DX: Z51.81 Encounter for therapeutic drug level monitoring (principal); F11.20 Opioid dependence, uncomplicated; M53.3 Sacrococcygeal disorders, not elsewhere classified; M51.16 Intervertebral disc disorders with radiculopathy, lumbar region; M47.812 Spondylosis without myelopathy or radiculopathy, cervical region; G89.29 Other chronic pain | CPT/HCPCS: 99212 ==

== ENCOUNTER → 2023-10-29 08:29 | Outpatient (BNVA) | payer OTHER, SELFPAY | PROVIDERS: PCP Physician Assistant; Visit Provider Anesthesiology | DX: Z51.81 Encounter for therapeutic drug level monitoring (principal); Z79.891 Long term (current) use of opiate analgesic | CPT/HCPCS: 99211 ==

== ENCOUNTER 2023-12-26 15:10 | Outpatient (AMB) | payer OTHER, SELFPAY ==
--- NOTE | 2023-12-26 15:27 | MHC.OFFVIS ---
Vital Signs 12/26/23 15:42 Height 6 ft Weight 238 lb BMI 32.3 BP 140/77 H Blood Pressure Location Lt brachial Position Sitting Respiration 16 Pulse 74 Pulse Source Pulse Oximeter Pulse Oximetry (%) 95 Oxygen Delivery Method Room Air Intake Visit Reasons: Film count Intake Note: Patient comes in for film count. reports pain 5/10. Allergies No Known Allergies Allergy (Verified 12/26/23 15:44) HPI Comments Details: Daryl is a very pleasant 52 year old male who presents to the office for follow up chronic pain and chronic opioid therapy management. He has long-term patient originally presented in my office with lower back pain complain, he was treated for this pain with sacroiliac joint fusion. He reports very minimal discomfort from the lower back. He reports minimal discomfort in the neck now. He does not want at this time to do any procedures but in the future if his pain will come back in the neck we can offer him diagnostic medial branch block and sprint PNS procedure. He reports significant changes with his teeth last time I recommended him to go to the dentist. Unfortunately he did not do it however he observed the hygiene measures necessary for Belbuca/buprenorphine. I reminded him that with buprenorphine he needs to observe certain oral hygienic rules, to brush his teeth very thoroughly 2 hours after application of the Belbuca, avoid too hot andtoo cold the beverages, use mouth washes or brush teeth after each meal intake. Patient is prescribed buprenorphine 450mcg buccal, 1.5 films daily as needed. The patient is supposed to have no films in his possession he has 17 films in his possession. His supposed to have 0 films in his possession. [facility] Medical History Anxiety COVID-19 vaccine series completed History of COVID-19 Sleep apnea Asthma Alcohol dependence Lumbar disc disease Elevated cholesterol BMI 36.0-36.9,adult BMI 37.0-37.9, adult BMI 38.0-38.9,adult Obese Annual physical exam Loss of sense of smell Vitamin B12 deficiency Non-insulin dependent type 2 diabetes mellitus Moderately severe major depressive disorder, single episode Binge eating disorder Open humeral fracture Smoker Ear discomfort Otitis externa Otitis media Sacroiliac joint pain Right hip pain Left hip pain Spondylosis of lumbosacral spine with radiculopathy Alcoholic fatty liver Abdominal bloating Chronic idiopathic constipation Allergic rhinitis GERD (gastroesophageal reflux disease) Surgical History History of surgical fusion joint History of surgery History of sleeve gastrectomy Hx of colonoscopy Fracture of surgical neck of humerus History of umbilical hernia repair Family History Father Hypertension CVD (cardiovascular disease) Mother CVD (cardiovascular disease) Lymph node cancer Lymphoma Sister Arthritis in Crohn's disease Sister Heart disease CVD (cardiovascular disease) Migraine Brother IBS (irritable bowel syndrome) Social History Household Members: Significant Other and Children Housing: Apartment Are you a primary health care assistant to a significant other at home: No Do you presently have visiting nurse or other home services: No Alcohol intake: former Year quit: 2018 Patient Tobacco Use Status: Current everyday Tobacco user Tobacco use type: Cigarette Cigarette Packs Per Day: 1 Cigarettes Per Day: 20.0 Years Smoked: 35 e-Cigarette/Vaping Use: Never Used Second Hand Smoke Exposure: No service: No Current occupational status: unemployed and disabled Cognitive needs: Yes (Cane) Hearing needs: No Vision needs: No Review of Systems Const All systems reviewed & are unremarkable except as noted in HPI and below Physical Exam General: awake, alert, oriented. Answers questions appropriately. Fully engaged in examination. Skin: warm, dry, intact HEENT: Normocephalic. Hearing intact. Cardiac: External chest normal in appearance. Respiratory: No cough, audible wheezing or stridor. Abdomen: without gross distension. MS: No obvious swelling or deformities. Able to transition from sit to stand unassisted. Ambulates with bilaterally normal heel strike and toe off Neurological: Oriented to person, place, time and situation. Thought process intact. Psychiatric: Appropriate mood and affect. Good judgment and insight. Assessment & Plan Assessment & Plan (1) Sacroiliac joint pain: Code(s): M53.3 - Sacrococcygeal disorders, not elsewhere classified Category: Medical (2) Chronic pain: Code(s): G89.29 - Other chronic pain Category: Medical Qualifiers: Chronic pain type: other chronic pain Qualified Code(s): G89.29 - Other chronic pain (3) Lumbar disc disease with radiculopathy: Code(s): M51.16 - Intervertebral disc disorders with radiculopathy, lumbar region Category: Medical (4) Spondylosis of cervical joint without myelopathy: Code(s): M47.812 - Spondylosis without myelopathy or radiculopathy, cervical region Category: Medical Plan Patient is status post right sacroiliac joint fusion on 01/26/22. He reports almost complete pain relief after the SI joint fusion. He reports minimal discomfort. The x-ray is as above. Spondylosis is suspected. If neck pain will return diagnostic injection will be offered following the sprint PNS. He currently is on Belbuca 450 mcg 1 film 1 or 2 times a day. He reports that recently he was applying those films more often twice a day. I told him that for the colder months we can increase his Belbuca to 1 film twice a day. After that hold winter months over we can decrease it back to 45 films a month. Dental hygiene is discussed again with the patient the dental hygiene rules reminded to the patient. Masspat was reviewed and without concerns. No obvious signs of diversion, abuse or misuse of the opioid medications. Medications: Refilled buprenorphine HCl 450 mcg buccal Q12H 30 days PRN 60 ea 1RF pain (scale score 4-6) Coding Level of Care Code Est Pt Level 3 (70859) Diagnoses Sacroiliac joint pain M53.3 Other chronic pain G89.29 Chronic pain type: other chronic pain Lumbar disc disease with radiculopathy M51.16 Spondylosis of cervical joint without myelopathy M47.812
[2023-12-26 15:42] VITALS: BP 140/77; PULSE 74; RESP 16; O2SAT 95; BMI 32.3
== END 2023-12-26 15:48 | disposition home or self-care (01) ==
PROVIDERS: PCP Physician Assistant; Visit Provider Anesthesiology
DX: M53.3 Sacrococcygeal disorders, not elsewhere classified (principal); G89.29 Other chronic pain; M51.16 Intervertebral disc disorders with radiculopathy, lumbar region; M47.812 Spondylosis without myelopathy or radiculopathy, cervical region
CPT/HCPCS: 99213

== ENCOUNTER → 2023-12-26 15:10 | Outpatient (BNVA) | payer OTHER, SELFPAY | PROVIDERS: PCP Physician Assistant; Visit Provider Anesthesiology | DX: M53.3 Sacrococcygeal disorders, not elsewhere classified (principal); G89.29 Other chronic pain; M51.16 Intervertebral disc disorders with radiculopathy, lumbar region; M47.812 Spondylosis without myelopathy or radiculopathy, cervical region; Z51.81 Encounter for therapeutic drug level monitoring; Z79.891 Long term (current) use of opiate analgesic | CPT/HCPCS: 99212 ==

== ENCOUNTER 2024-02-20 15:04 | Outpatient (AMB) | payer OTHER, SELFPAY ==
--- NOTE | 2024-02-20 15:05 | MHC.OFFVIS ---
Vital Signs 02/20/24 15:06 Height 6 ft Weight 238 lb BMI 32.3 BP 136/72 Blood Pressure Location Lt brachial Position Sitting Respiration 15 Pulse 79 Pulse Source Pulse Oximeter Pulse Oximetry (%) 97 Oxygen Delivery Method Room Air Intake Visit Reasons: Film Count Intake Note: Pt states he last took Belbuca 02/20/24 @ 1:30pm Allergies No Known Allergies Allergy (Verified 02/20/24 15:07) Medication List - Last Reconciled 02/20/24 by Candice Alberts LPN albuterol sulfate 90 mcg/actuation 2 puffs PO Q6H PRN 30 days baclofen 20 mg PO Q8H 30 days buprenorphine HCl 450 mcg buccal Q12H PRN 30 days bupropion HCl XL 1 tab PO DAILY buspirone 30 mg PO TID citalopram 40 mg PO DAILY 90 days fluticasone propionate 50 mcg/actuation 2 sprays intranasal DAILY losartan 100 mg PO DAILY lovastatin 40 mg PO BEDTIME 90 days miscellaneous medical supply 1 ea miscellaneous DAILY 99 days HPI Comments Details: Daryl is a very pleasant 52 year old male who presents to the office for follow up chronic pain and chronic opioid therapy management. He reports very low level of pain today he reports that today as he is very comfortable. He has under observation in this office for long period of time he is currently receives Belbuca 450 micro g b.i.d. he reports no side effects from the medications he reports no constipation. He is aware of dental hygiene needed in combination with this medication. Today film count is correct. He presented today with 7 films in his possession. Supposed to have 4. films in his possession. We were offering him in the past for cervicalgia medial branch block and sprint PNS. He is not very eager to go for this procedure. [facility] Medical History Anxiety COVID-19 vaccine series completed History of COVID-19 Sleep apnea Asthma Alcohol dependence Lumbar disc disease Elevated cholesterol BMI 36.0-36.9,adult BMI 37.0-37.9, adult BMI 38.0-38.9,adult Obese Annual physical exam Loss of sense of smell Vitamin B12 deficiency Non-insulin dependent type 2 diabetes mellitus Moderately severe major depressive disorder, single episode Binge eating disorder Open humeral fracture Smoker Ear discomfort Otitis externa Otitis media Sacroiliac joint pain Right hip pain Left hip pain Spondylosis of lumbosacral spine with radiculopathy Alcoholic fatty liver Abdominal bloating Chronic idiopathic constipation Allergic rhinitis GERD (gastroesophageal reflux disease) Surgical History History of surgical fusion joint History of surgery History of sleeve gastrectomy Hx of colonoscopy Fracture of surgical neck of humerus History of umbilical hernia repair Family History Father Hypertension CVD (cardiovascular disease) Mother CVD (cardiovascular disease) Lymph node cancer Lymphoma Sister Arthritis in Crohn's disease Sister Heart disease CVD (cardiovascular disease) Migraine Brother IBS (irritable bowel syndrome) Social History Household Members: Significant Other and Children Housing: Apartment Are you a primary early breastfeeding care specialist to a significant other at home: No Do you presently have visiting nurse or other home services: No Alcohol intake: former Year quit: 2018 Patient Tobacco Use Status: Current everyday Tobacco user Tobacco use type: Cigarette Cigarette Packs Per Day: 1 Cigarettes Per Day: 20.0 Years Smoked: 35 e-Cigarette/Vaping Use: Never Used Second Hand Smoke Exposure: No service: No Current occupational status: unemployed and disabled Cognitive needs: Yes (Cane) Hearing needs: No Vision needs: No Review of Systems Const All systems reviewed & are unremarkable except as noted in HPI and below Physical Exam Vital Signs: Last Vital Signs Pulse 79 02/20/24 15:06 Resp 15 02/20/24 15:06 BP 136/72 02/20/24 15:06 Pulse Ox 97 02/20/24 15:06 Oxygen Delivery Method Room Air 02/20/24 15:06 BMI result Body Mass Index 32.3 General: awake, alert, oriented. Answers questions appropriately. Fully engaged in examination. Skin: warm, dry, intact HEENT: Normocephalic. Hearing intact. Cardiac: External chest normal in appearance. Respiratory: No cough, audible wheezing or stridor. Abdomen: without gross distension. MS: No obvious swelling or deformities. Able to transition from sit to stand unassisted. Ambulates with bilaterally normal heel strike and toe off Neurological: Oriented to person, place, time and situation. Thought process intact. Psychiatric: Appropriate mood and affect. Good judgment and insight. Assessment & Plan Assessment & Plan (1) Sacroiliac joint pain: Code(s): M53.3 - Sacrococcygeal disorders, not elsewhere classified Category: Medical (2) Chronic pain: Code(s): G89.29 - Other chronic pain Category: Medical Qualifiers: Chronic pain type: other chronic pain Qualified Code(s): G89.29 - Other chronic pain (3) Lumbar disc disease with radiculopathy: Code(s): M51.16 - Intervertebral disc disorders with radiculopathy, lumbar region Category: Medical (4) Spondylosis of cervical joint without myelopathy: Code(s): M47.812 - Spondylosis without myelopathy or radiculopathy, cervical region Category: Medical Plan Patient is status post right sacroiliac joint fusion on 01/26/22. He reports almost complete pain relief after the SI joint fusion. He reports minimal discomfort. The x-ray is as above. Spondylosis is suspected. If neck pain will return diagnostic injection will be offered following the sprint PNS. He currently is on Belbuca 450 mcg 1 film 1 or 2 times a day. He is aware of dental hygiene applications with regard of his medication. Masspat was reviewed and without concerns. No obvious signs of diversion, abuse or misuse of the opioid medications. Medications: Refilled buprenorphine HCl 450 mcg buccal Q12H PRN 60 ea 1RF pain (scale score 4-6) 30 days Coding Level of Care Code Est Pt Level 3 (82910) Diagnoses Sacroiliac joint pain M53.3 Other chronic pain G89.29 Chronic pain type: other chronic pain Lumbar disc disease with radiculopathy M51.16 Spondylosis of cervical joint without myelopathy M47.812
[2024-02-20 15:06] VITALS: BP 136/72; PULSE 79; RESP 15; O2SAT 97; BMI 32.3
== END 2024-02-20 15:40 | disposition home or self-care (01) ==
LOC: HO.PMC 15:04
PROVIDERS: PCP Physician Assistant; Visit Provider Anesthesiology
DX: M53.3 Sacrococcygeal disorders, not elsewhere classified (principal); G89.29 Other chronic pain; M51.16 Intervertebral disc disorders with radiculopathy, lumbar region; M47.812 Spondylosis without myelopathy or radiculopathy, cervical region
CPT/HCPCS: 99213

== ENCOUNTER → 2024-02-20 15:04 | Outpatient (BNVA) | payer OTHER, SELFPAY | PROVIDERS: PCP Physician Assistant; Visit Provider Anesthesiology | DX: M53.3 Sacrococcygeal disorders, not elsewhere classified (principal); G89.29 Other chronic pain; M51.16 Intervertebral disc disorders with radiculopathy, lumbar region; M47.812 Spondylosis without myelopathy or radiculopathy, cervical region; Z51.81 Encounter for therapeutic drug level monitoring; Z79.891 Long term (current) use of opiate analgesic | CPT/HCPCS: 99212 ==

== ENCOUNTER 2024-04-23 14:44 | Outpatient (AMB) | payer OTHER, SELFPAY ==
[2024-04-23 14:53] VITALS: BP 145/88; PULSE 99; O2SAT 96; BMI 34.0
--- NOTE | 2024-04-23 14:53 | A.OFFVIS_ITS ---
Vital Signs 04/23/24 14:53 Height 6 ft Weight 251 lb BMI 34.0 BP 145/88 H Blood Pressure Location Rt brachial Position Sitting Pulse 99 Pulse Source Pulse Oximeter Pulse Oximetry (%) 96 Oxygen Delivery Method Room Air Intake Visit Reasons: Pill Count Intake Note: Daryl comes in today for a film count to belbuca, patient should have 2 films and presents with 12 films which he last took today 04/23/24 at 4:30am. Pain today 09/18. Patient resigned opioid contract in office today, signed copy of contract was provided to patient. Allergies No Known Allergies Allergy (Verified 04/23/24 14:55) HPI Comments Details: Daryl is a very pleasant 52 year old male who presents to the office for follow up chronic pain and chronic opioid therapy management. He reports pain aggravated on the right flank, the palpation of the right iliac crest is tender. Most likely he suffers from the cluneal nerve entrapment among the other pain generators. Briefly diagnostic cluneal nerve block discussed - the patient does not want to consider it for now. In general his pain is very well controlled which is supported by his pill count. He suppose to bring 2 films of Belbuca in his possession, he presented with 12 films of Belbuca today. This also demonstrate a responsible attitude toward the opioid therapy. [facility] Medical History Anxiety COVID-19 vaccine series completed History of COVID-19 Sleep apnea Asthma Alcohol dependence Lumbar disc disease Elevated cholesterol BMI 36.0-36.9,adult BMI 37.0-37.9, adult BMI 38.0-38.9,adult Obese Annual physical exam Loss of sense of smell Vitamin B12 deficiency Non-insulin dependent type 2 diabetes mellitus Moderately severe major depressive disorder, single episode Binge eating disorder Open humeral fracture Smoker Ear discomfort Otitis externa Otitis media Sacroiliac joint pain Right hip pain Left hip pain Spondylosis of lumbosacral spine with radiculopathy Alcoholic fatty liver Abdominal bloating Chronic idiopathic constipation Allergic rhinitis GERD (gastroesophageal reflux disease) Surgical History History of surgical fusion joint History of surgery History of sleeve gastrectomy Hx of colonoscopy Fracture of surgical neck of humerus History of umbilical hernia repair Family History Father Hypertension CVD (cardiovascular disease) Mother CVD (cardiovascular disease) Lymph node cancer Lymphoma Sister Arthritis in Crohn's disease Sister Heart disease CVD (cardiovascular disease) Migraine Brother IBS (irritable bowel syndrome) Social History Household Members: Significant Other and Children Housing: Apartment Are you a primary palliative care nurse practitioner to a significant other at home: No Do you presently have visiting nurse or other home services: No Alcohol intake: former Year quit: 2018 Patient Tobacco Use Status: Current everyday Tobacco user Tobacco use type: Cigarette Cigarette Packs Per Day: 1 Cigarettes Per Day: 20.0 Years Smoked: 35 e-Cigarette/Vaping Use: Never Used Second Hand Smoke Exposure: No service: No Current occupational status: unemployed and disabled Cognitive needs: Yes (Cane) Hearing needs: No Vision needs: No Review of Systems Const All systems reviewed & are unremarkable except as noted in HPI and below Physical Exam Vital Signs: Last Vital Signs Pulse 99 04/23/24 14:53 BP 145/88 H 04/23/24 14:53 Pulse Ox 96 04/23/24 14:53 Oxygen Delivery Method Room Air 04/23/24 14:53 BMI result Body Mass Index 34.0 General: awake, alert, oriented. Answers questions appropriately. Fully engaged in examination. Skin: warm, dry, intact HEENT: Normocephalic. Hearing intact. Cardiac: External chest normal in appearance. Respiratory: No cough, audible wheezing or stridor. Abdomen: without gross distension. MS: No obvious swelling or deformities. Able to transition from sit to stand unassisted. Ambulates with bilaterally normal heel strike and toe off Neurological: Oriented to person, place, time and situation. Thought process intact. Psychiatric: Appropriate mood and affect. Good judgment and insight. Assessment & Plan Assessment & Plan (1) Chronic pain: Code(s): G89.29 - Other chronic pain Category: Medical Qualifiers: Chronic pain type: other chronic pain Qualified Code(s): G89.29 - Other chronic pain (2) Lumbar disc disease with radiculopathy: Code(s): M51.16 - Intervertebral disc disorders with radiculopathy, lumbar region Category: Medical (3) Spondylosis of cervical joint without myelopathy: Code(s): M47.812 - Spondylosis without myelopathy or radiculopathy, cervical region Category: Medical Plan Patient is status post right sacroiliac joint fusion on 01/26/22. He reports almost complete pain relief after the SI joint fusion. He reports minimal discomfort at the lower back but complains today on pain in the right flank, where there is tenderness on palpation of the ilac crest. Cluneal nerve block was briefly discussed. Also intermittent cervicalgia most likely dur to spondylosis of the cervical spine ( the image see as abobe) He currently is on Belbuca 450 mcg 1 film 1 or 2 times a day. He is aware of dental hygiene applications with regard of his medication. Masspat was reviewed and without concerns. No obvious signs of diversion, abuse or misuse of the opioid medications. I will prescribe his medication on 04/25/2024 with one refill. I will see him in 2 months. Medications: Refilled buprenorphine HCl 450 mcg buccal Q12H 30 days PRN 60 ea 1RF pain (scale score 4-6) Coding Level of Care Code Est Pt Level 3 (50436) Diagnoses Other chronic pain G89.29 Chronic pain type: other chronic pain Lumbar disc disease with radiculopathy M51.16 Spondylosis of cervical joint without myelopathy M47.812
== END 2024-04-23 15:01 | disposition home or self-care (01) ==
PROVIDERS: PCP Physician Assistant; Visit Provider Anesthesiology
DX: G89.29 Other chronic pain (principal); M51.16 Intervertebral disc disorders with radiculopathy, lumbar region; M47.812 Spondylosis without myelopathy or radiculopathy, cervical region
CPT/HCPCS: 99213

== ENCOUNTER → 2024-04-23 14:44 | Outpatient (BNVA) | payer OTHER, SELFPAY | PROVIDERS: PCP Physician Assistant; Visit Provider Anesthesiology | DX: Z51.81 Encounter for therapeutic drug level monitoring (principal); F11.20 Opioid dependence, uncomplicated; M51.16 Intervertebral disc disorders with radiculopathy, lumbar region; M47.812 Spondylosis without myelopathy or radiculopathy, cervical region; G89.29 Other chronic pain | CPT/HCPCS: 99212 ==

== ENCOUNTER 2024-06-25 15:06 | Outpatient (AMB) | payer OTHER, SELFPAY ==
--- NOTE | 2024-06-25 15:08 | A.OFFVIS_ITS ---
Vital Signs 06/25/24 15:09 Height 6 ft Weight 251 lb BMI 34.0 BP 142/82 H Blood Pressure Location Lt brachial Position Sitting Respiration 16 Pulse 91 Pulse Source Pulse Oximeter Pulse Oximetry (%) 97 Oxygen Delivery Method Room Air Intake Visit Reasons: Pill Count Intake Note: Pt states he last took belbuca 06/25/24 @ 5am Ladle Cleaner Required: No Allergies No Known Allergies Allergy (Verified 06/25/24 15:11) Medication List - Last Reconciled 06/25/24 by Candice Alberts LPN albuterol sulfate 90 mcg/actuation 2 puffs PO Q6H PRN 30 days baclofen 20 mg PO Q8H 30 days buprenorphine HCl 450 mcg buccal Q12H PRN 30 days bupropion HCl XL 1 tab PO DAILY buspirone 30 mg PO TID citalopram 40 mg PO DAILY 90 days fluticasone propionate 50 mcg/actuation 2 sprays intranasal DAILY losartan 100 mg PO DAILY lovastatin 40 mg PO BEDTIME 90 days miscellaneous medical supply 1 ea miscellaneous DAILY 99 days HPI Comments Details: Daryl is a very pleasant 52 year old male who presents to the office for follow up chronic pain and chronic opioid therapy management. He reports pain level today 5/10. He reports that pain control is adequate. He reports better activities of daily living with opioid medications he denies side effects. Briefly diagnostic cluneal nerve block was discussed again- the patient does not want to consider it for now. In general his pain is very well controlled which is supported by his pill count. He suppose to bring 0 films of Belbuca in his possession, he presented with 2. films of Belbuca today. This also demonstrate a responsible attitude toward the opioid therapy. He is due for his prescription tomorrow 06/26/2024. I will prescribe it with 1 refill. We will see patient in 2 months. FORMERLY [facility] Medical History Anxiety COVID-19 vaccine series completed History of COVID-19 Sleep apnea Asthma Alcohol dependence Lumbar disc disease Elevated cholesterol BMI 36.0-36.9,adult BMI 37.0-37.9, adult BMI 38.0-38.9,adult Obese Annual physical exam Loss of sense of smell Vitamin B12 deficiency Non-insulin dependent type 2 diabetes mellitus Moderately severe major depressive disorder, single episode Binge eating disorder Open humeral fracture Smoker Ear discomfort Otitis externa Otitis media Sacroiliac joint pain Right hip pain Left hip pain Spondylosis of lumbosacral spine with radiculopathy Alcoholic fatty liver Abdominal bloating Chronic idiopathic constipation Allergic rhinitis GERD (gastroesophageal reflux disease) Surgical History History of surgical fusion joint History of surgery History of sleeve gastrectomy Hx of colonoscopy Fracture of surgical neck of humerus History of umbilical hernia repair Family History Father Hypertension CVD (cardiovascular disease) Mother CVD (cardiovascular disease) Lymph node cancer Lymphoma Sister Arthritis in Crohn's disease Sister Heart disease CVD (cardiovascular disease) Migraine Brother IBS (irritable bowel syndrome) Social History Household Members: Significant Other and Children Housing: Apartment Are you a primary career professional to a significant other at home: No Do you presently have visiting nurse or other home services: No Alcohol intake: former Year quit: 2018 Patient Tobacco Use Status: Current everyday Tobacco user Tobacco use type: Cigarette Cigarette Packs Per Day: 1 Cigarettes Per Day: 20.0 Years Smoked: 35 e-Cigarette/Vaping Use: Never Used Second Hand Smoke Exposure: No service: No Current occupational status: unemployed and disabled Cognitive needs: Yes (Cane) Hearing needs: No Vision needs: No Review of Systems Const All systems reviewed & are unremarkable except as noted in HPI and below Physical Exam Vital Signs: Last Vital Signs Pulse 91 06/25/24 15:09 Resp 16 06/25/24 15:09 BP 142/82 H 06/25/24 15:09 Pulse Ox 97 06/25/24 15:09 Oxygen Delivery Method Room Air 06/25/24 15:09 BMI result Body Mass Index 34.0 General: awake, alert, oriented. Answers questions appropriately. Fully engaged in examination. Skin: warm, dry, intact HEENT: Normocephalic. Hearing intact. Cardiac: External chest normal in appearance. Respiratory: No cough, audible wheezing or stridor. Abdomen: without gross distension. MS: No obvious swelling or deformities. Able to transition from sit to stand unassisted. Ambulates with bilaterally normal heel strike and toe off Neurological: Oriented to person, place, time and situation. Thought process intact. Psychiatric: Appropriate mood and affect. Good judgment and insight. Assessment & Plan Assessment & Plan (1) Chronic pain: Code(s): G89.29 - Other chronic pain Category: Medical Qualifiers: Chronic pain type: other chronic pain Qualified Code(s): G89.29 - Other chronic pain (2) Lumbar disc disease with radiculopathy: Code(s): M51.16 - Intervertebral disc disorders with radiculopathy, lumbar region Category: Medical (3) Spondylosis of cervical joint without myelopathy: Code(s): M47.812 - Spondylosis without myelopathy or radiculopathy, cervical region Category: Medical Plan Patient is status post right sacroiliac joint fusion on 01/26/22. Sacroiliac joint issues resolved however patient has residual pain from lower back and iliac crest. On Belbuca medication as below. Belbuca 450 mcg 1 film 1 or 2 times a day. He is aware of dental hygiene applications with regard of his medication. Masspat was reviewed and without concerns. No obvious signs of diversion, abuse or misuse of the opioid medications. I will prescribe his medication on 06/26/2024 with one refill. I will see him in 2 months. Medications: Refilled buprenorphine HCl 450 mcg buccal Q12H PRN 60 ea 1RF pain (scale score 4-6) 30 days Coding Level of Care Code Est Pt Level 3 (46853) Diagnoses Other chronic pain G89.29 Chronic pain type: other chronic pain Lumbar disc disease with radiculopathy M51.16 Spondylosis of cervical joint without myelopathy M47.812
[2024-06-25 15:09] VITALS: BP 142/82; PULSE 91; RESP 16; O2SAT 97; BMI 34.0
== END 2024-06-25 15:15 | disposition home or self-care (01) ==
LOC: HO.PMC 15:07
PROVIDERS: PCP Physician Assistant; Visit Provider Anesthesiology
DX: G89.29 Other chronic pain (principal); M51.16 Intervertebral disc disorders with radiculopathy, lumbar region; M47.812 Spondylosis without myelopathy or radiculopathy, cervical region
CPT/HCPCS: 99213

== ENCOUNTER → 2024-06-25 15:06 | Outpatient (BNVA) | payer OTHER, SELFPAY | PROVIDERS: PCP Physician Assistant; Visit Provider Anesthesiology | DX: Z51.81 Encounter for therapeutic drug level monitoring (principal); M51.16 Intervertebral disc disorders with radiculopathy, lumbar region; M47.812 Spondylosis without myelopathy or radiculopathy, cervical region; G89.29 Other chronic pain; Z87.891 Personal history of nicotine dependence | CPT/HCPCS: 99212 ==

== ENCOUNTER 2024-08-20 14:42 | Outpatient (AMB) | payer OTHER, SELFPAY ==
[2024-08-20 14:43] VITALS: BP 133/83; PULSE 79; RESP 16; O2SAT 94; BMI 34.0
--- NOTE | 2024-08-20 14:43 | A.OFFVIS_ITS ---
Vital Signs 08/20/24 14:43 Height 6 ft Weight 251 lb BMI 34.0 BP 133/83 Blood Pressure Location Rt brachial Position Sitting Respiration 16 Pulse 79 Pulse Source Pulse Oximeter Pulse Oximetry (%) 94 Oxygen Delivery Method Room Air Intake Visit Reasons: Pill count Intake Note: Patient has presented for a routine pill count of Belbuca #60. Per these directions patient should had #24 pills. Patient presented #27. Meteorological Engineer Required: No Allergies No Known Allergies Allergy (Verified 08/20/24 14:57) HPI Comments Details: Daryl is a very pleasant 54-year-old male who presents to the office for follow up chronic pain and chronic medication management. Initially there was confusion regarding the number of medication bottle received from the pharmacy, which led to a potential discrepancy in the perceived amount of medication available for use, raising compliance concerns. He was informed about the importance of bringing all medication bottles to his appointments for counting. This issue may point towards an existing challenge in keeping track of prescriptions effectively, possibly indicating the need for improved organizational strategies. Inspection of pharmacy label on the pill bottle noted it to be 2/2, patient stated bottle 1/2 was erroneously left at home. Patient was able to call family who brought the forgotten bottle to the appointment within 1 hours time. Patient states he keeps that at his bedside as his night dose and he forgot to bring it to the appointment today. He is prescribed buprenorphine 450 mcg twice daily. Arrived today with the expectation of having 24 pills, he presented 27 pills which were counted in the presence of two staff members and returned to the patient in the original prescription bottle. This demonstrates responsible attitude toward patient's opioid medications. Pain is reported today as 4/10 and last dose of pain medication was taken at 04:00 o'clock this morning. Patient denies side effects including somnolence, constipation, itching, dyspnea, rash, dizziness or weakness. - Analgesia: Reports using medication as prescribed, but confusion about the number of vials received. - Aberrant Drug Related Behaviors: Potentially aberrant behavior observed with not knowing precise medication count. FOR[facility]LY [facility] Medical History Anxiety COVID-19 vaccine series completed History of COVID-19 Sleep apnea Asthma Alcohol dependence Lumbar disc disease Elevated cholesterol BMI 36.0-36.9,adult BMI 37.0-37.9, adult BMI 38.0-38.9,adult Obese Annual physical exam Loss of sense of smell Vitamin B12 deficiency Non-insulin dependent type 2 diabetes mellitus Moderately severe major depressive disorder, single episode Binge eating disorder Open humeral fracture Smoker Ear discomfort Otitis externa Otitis media Sacroiliac joint pain Right hip pain Left hip pain Spondylosis of lumbosacral spine with radiculopathy Alcoholic fatty liver Abdominal bloating Chronic idiopathic constipation Allergic rhinitis GERD (gastroesophageal reflux disease) Surgical History History of surgical fusion joint History of surgery History of sleeve gastrectomy Hx of colonoscopy Fracture of surgical neck of humerus History of umbilical hernia repair Family History Father Hypertension CVD (cardiovascular disease) Mother CVD (cardiovascular disease) Lymph node cancer Lymphoma Sister Arthritis in Crohn's disease Sister Heart disease CVD (cardiovascular disease) Migraine Brother IBS (irritable bowel syndrome) Social History Household Members: Significant Other and Children Housing: Apartment Are you a primary intensive care medicine specialist to a significant other at home: No Do you presently have visiting nurse or other home services: No Alcohol intake: former Year quit: 2018 Patient Tobacco Use Status: Current everyday Tobacco user Tobacco use type: Cigarette Cigarette Packs Per Day: 1 Cigarettes Per Day: 20.0 Years Smoked: 35 e-Cigarette/Vaping Use: Never Used Second Hand Smoke Exposure: No service: No Current occupational status: unemployed and disabled Cognitive needs: Yes (Cane) Hearing needs: No Vision needs: No Review of Systems Const All systems reviewed & are unremarkable except as noted in HPI and below Physical Exam Vital Signs: Last Vital Signs Pulse 79 08/20/24 14:43 Resp 16 08/20/24 14:43 BP 133/83 08/20/24 14:43 Pulse Ox 94 08/20/24 14:43 Oxygen Delivery Method Room Air 08/20/24 14:43 BMI result Body Mass Index 34.0 General: awake, alert, oriented. Answers questions appropriately. Fully engaged in examination. Skin: warm, dry, intact HEENT: Normocephalic. Hearing intact. Cardiac: External chest normal in appearance. Respiratory: No cough, audible wheezing or stridor. Abdomen: without gross distension. MS: No obvious swelling or deformities. Able to transition from sit to stand unassisted. Ambulates with bilaterally normal heel strike and toe off Neurological: Oriented to person, place, time and situation. Thought process intact. No gait abnormalities appreciated. Psychiatric: Appropriate mood and affect. Good judgment and insight. Results Reviewed Results Reviewed: 03/21/23 XR CERVICAL SPINE CLINICAL INFORMATION: Spondylolysis without myelopathy or radiculopathy and cervical region COMPARISON: None available. TECHNIQUE: 5 views of cervical spine including oblique views FINDINGS: Vertebral bodies are well aligned and intervertebral discs are preserved except of mild narrowing at the level of C5-C6 and C6-C7. Neuroforamina are narrowed bilaterally at the level of C5-C6 due to osteophytosis. Soft tissues unremarkable. Assessment & Plan Assessment & Plan (1) Chronic pain: Code(s): G89.29 - Other chronic pain Category: Medical Qualifiers: Chronic pain type: other chronic pain Qualified Code(s): G89.29 - Other chronic pain (2) Lumbar disc disease with radiculopathy: Code(s): M51.16 - Intervertebral disc disorders with radiculopathy, lumbar region Category: Medical (3) Spondylosis of cervical joint without myelopathy: Code(s): M47.812 - Spondylosis without myelopathy or radiculopathy, cervical region Category: Medical Plan I discussed the essential aspect of medication compliance with the patient, as he had difficulty confirming the correct number of bottle received from the pharmacy. More accurate tracking of his medication needs to occur to ensure adherence to the prescribed regimen. The conversation highlighted the necessity of bringing all medication vials to appointments for efficient monitoring and management. I explained to the patient the importance of confirming the precise number of medication bottles he should have and the necessity of bringing them to his appointments for accurate tracking. No changes to the regimen were recommended in this visit. The focus remained on ensuring adherence and compliance with the current medication plan. We did discuss repeat right sacroiliac joint injection as he received significant improvement in his pain the last time he had this injection. He states the pain is not bothersome at this time, he will our office know when he is ready to repeat the injection. Patient was informed and verbally consented to the use of an ambient scribe for clinic note documentation during this visit. Medications: Refilled buprenorphine HCl 450 mcg buccal Q12H 30 days PRN 60 ea 1RF pain (scale score 4-6) Patient Instructions: - Keep track of all medication vials received and ensure accurate understanding of prescribed doses. - Bring all medication bottles to your appointments for counting. - Follow-up in 2 months for next pill count - Monitor closely for any adverse effects of the medication - Call the office when ready to schedule next sacroiliac joint injection Coding Level of Care Code Est Pt Level 3 (23664) Complex EM visit Add On G2211 Diagnoses Other chronic pain G89.29 Chronic pain type: other chronic pain Lumbar disc disease with radiculopathy M51.16 Spondylosis of cervical joint without myelopathy M47.812
== END 2024-08-20 16:02 | disposition home or self-care (01) ==
LOC: HO.PMC 14:42
PROVIDERS: PCP Physician Assistant; Visit Provider Registered Nurse Emergency
DX: G89.29 Other chronic pain (principal); M51.16 Intervertebral disc disorders with radiculopathy, lumbar region; M47.812 Spondylosis without myelopathy or radiculopathy, cervical region
CPT/HCPCS: 99213; G2211

== ENCOUNTER → 2024-08-20 14:42 | Outpatient (BNVA) | payer OTHER, SELFPAY | PROVIDERS: PCP Physician Assistant; Visit Provider Registered Nurse Emergency | DX: G89.29 Other chronic pain (principal); M47.812 Spondylosis without myelopathy or radiculopathy, cervical region; M51.16 Intervertebral disc disorders with radiculopathy, lumbar region | CPT/HCPCS: 99212 ==

== ENCOUNTER 2024-12-04 13:41 | Outpatient (AMB) | payer OTHER, SELFPAY ==
[2024-12-04 13:46] VITALS: BP 140/82; PULSE 74; TEMP 36.3; O2SAT 95; BMI 33.8
--- NOTE | 2024-12-04 13:46 | A.OFFPC_ITS ---
Vital Signs 12/04/24 13:46 Height 6 ft Weight 249 lb 2 oz BMI 33.8 BP 140/82 H Blood Pressure Location Lt brachial Position Sitting Pulse 74 Pulse Source Pulse Oximeter Temp 97.3 F Temp Source Temporal Artery Scan Pulse Oximetry (%) 95 Oxygen Delivery Method Room Air Intake Visit Reasons: ANNUAL Allergies No Known Allergies Allergy (Verified 12/04/24 13:53) Medication List - Last Reconciled 12/04/24 by Adilson Gr PA-C albuterol sulfate 90 mcg/actuation 2 puffs PO Q6H PRN 30 days baclofen 20 mg PO Q8H 30 days buprenorphine HCl (Belbuca) mcg buccal citalopram 40 mg PO DAILY 90 days fluticasone propionate 50 mcg/actuation 2 sprays intranasal DAILY miscellaneous medical supply 1 ea miscellaneous DAILY 99 days Tobacco use date assessed: 12/04/24 Dental Screening Dental Screen Date: 12/04/24 Did you have a dental visit in the last 12 months?: Yes Did you have a dental problem in the last 6 months where you did not have access to dental care?: No Was dental information given to patient?: Patient has dentist HPI ANNUAL HPI Details Daryl is a 54-year-old male here today for an annual physical. . Patient has a past medical history significant for tobacco dependency, hyperlipidemia, GERD, history of bariatric surgery, obesity, history of alcohol abuse, chronic lumbar disc disease. .. Class 1 Obesity:? He is status post bariatric surgery a few years ago, unfortunately gained weight since his last office visit. He reports feeling bit sluggish and tired and lack of motivation to which he attributing to his weight gain. .. Tobacco dependency: Unfortunately continues to smoke nearly a pack of cigarettes per day. He does understand he needs to quit smoking .. Obstructive sleep apnea: The patient has a history of obstructive sleep apnea and reports non-compliance with CPAP therapy due to discomfort with the device. He is interested in exploring alternative treatments, including the use of Zepbound, an injectable medication approved for weight loss and obstructive sleep apnea. ? .. ? Hyperlipidemia:? Continues on statin therapy without any side effect.? Patient's triglycerides elevated and total cholesterol borderline.? .. ? Impaired glucose metabolism: Has resolved since bariatric surgery ? ... ? Lumbar spine pain with bilateral lower extremity radiculopathy:? He is now followed by [facility] whom is managing his pain with Belbuca 450 mcg b.i.d.. He uses this medication on an as-needed basis at times. 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 . ? .. ? Hypertension: The patient has a history of hypertension, previously managed with losartan, which he discontinued after surgery. His current blood pressure is 140/82 mmHg, and he is not on any antihypertensive medication at present. .. :Hyperlipidemia: Was previously on lovastatin until after his bariatric surgery and was able to get often medication. Will recheck his lipid panel in if LDL above 130 will consider restarting statin therapy Colon cancer screenin , tubular adenoma polyp found repeat 5 years, overdue for repeat colonoscopy Vaccine: Up-to-date with COVID vaccine, UTD with tetanus vaccine , up-to-date with pneumonia, he is considering the flu shot and shingles vaccine [facility] Medical History Anxiety COVID-19 vaccine series completed History of COVID-19 Sleep apnea Asthma Alcohol dependence Lumbar disc disease Elevated cholesterol BMI 36.0-36.9,adult BMI 37.0-37.9, adult BMI 38.0-38.9,adult Obese Annual physical exam Loss of sense of smell Vitamin B12 deficiency Non-insulin dependent type 2 diabetes mellitus Moderately severe major depressive disorder, single episode Binge eating disorder Open humeral fracture Smoker Ear discomfort Otitis externa Otitis media Sacroiliac joint pain Right hip pain Left hip pain Spondylosis of lumbosacral spine with radiculopathy Alcoholic fatty liver Abdominal bloating Chronic idiopathic constipation Allergic rhinitis GERD (gastroesophageal reflux disease) Surgical History History of surgical fusion joint History of surgery History of sleeve gastrectomy Hx of colonoscopy Fracture of surgical neck of humerus History of umbilical hernia repair Family History Father Hypertension CVD (cardiovascular disease) Mother CVD (cardiovascular disease) Lymph node cancer Lymphoma Sister Arthritis in Crohn's disease Sister Heart disease CVD (cardiovascular disease) Migraine Brother IBS (irritable bowel syndrome) Social History (Updated 12/04/24 @ 13:59 by Adilson Gr PA-C) Household Members: Significant Other and Children Housing: Apartment Are you a primary healthcare management to a significant other at home: No Do you presently have visiting nurse or other home services: No Alcohol intake: former Year quit: 2018 Patient Tobacco Use Status: Current everyday Tobacco user Tobacco use type: Cigarette Cigarette Packs Per Day: 1 Cigarettes Per Day: 20.0 Years Smoked: 35 e-Cigarette/Vaping Use: Never Used Second Hand Smoke Exposure: No service: No Current occupational status: unemployed and disabled Cognitive needs: Yes (Cane) Hearing needs: No Vision needs: No Questionnaire PHQ-9 Over the last 2 weeks, how often have you been bothered by any of the following problems? 1. Little interest or pleasure in doing things: more than half the days 2. Feeling down, depressed, or hopeless: not at all 3. Trouble falling or staying asleep, or sleeping too much: several days 4. Feeling tired or having little energy: nearly every day 5. Poor appetite or overeating: several days 6. Feeling bad about yourself - or that you are a failure or have let yourself or your family down: several days 7. Trouble concentrating on things, such as reading the newspaper or watching television: not at all 8. Moving or speaking so slowly that other people could have noticed. Or the opposite - being so fidgety or restless that you have been moving around a lot more than usual: several days 9. Thoughts that you would be better off or of hurting yourself in some way: not at all Total score: 9 Depression Screening Interpretation: Positive Depression Screening Done: Yes 09917 - PHQ-9 Billing: Yes Source: Developed by Drs. Blake Causey, Christa Espinosa, Yonathan Rodriguez and colleagues, with an educational jeremie from [employer]. Thrive Questionnaire Date Thrive assessed: 12/04/24 I am a: Patient What is your living situation today?: I have a steady place to live Within the past 12 months, did the food you bought not last and you didn't have the money to get more?: Sometimes True Within the past 12 months, did you worry whether your food would run out before you got money to buy more?: Sometimes True Do you have trouble paying for medicines?: No Do you have trouble getting transportation to medical appointments?: No Do you have trouble paying your heating and electricity bill?: No Do you have trouble taking care of your child, family member or friend?: No Do you have trouble with day-to-day activities such as bathing, preparing meals, shopping, managing finances, etc.?: No Are you currently unemployed and looking for a job?: Yes Are you interested in more education?: No Please select the resources that you would like help with: None Currently or been in a relationship where the following occur: No concerns reported THRIVE Score: 2 AUDIT C Alcohol Use Questionnaire (AUDIT-C) 1. How often do you have a drink containing alcohol?: Never 3. How often do you have six or more drinks on one occasion?: Never Total Score: 0 WILLARD-7 AMB Questionnaire WILLARD-7 Date WILLARD - 7 assessed: 12/04/24 Feeling nervous, anxious, or on edge: 1 = Several days Not being able to stop or control worryin = Several days Worrying too much about different things: 1 = Several days Trouble relaxin = Several days Being so restless that it is hard to sit still: 1 = Several days Becoming easily annoyed or irritable: 2 = More than half the days Feeling afraid as if something awful might happen: 1 = Several days Total WILLARD-7 score (0-4 normal; 5-9 mild; 10-14 moderate; 15-21 severe): 8 Source: Developed by Drs. Blake Causey, Christa Espinosa, Yonathan Rodriguez and colleagues, with an educational jeremie from [employer]. WILLARD-7 Assessment Billing WILLARD-7 Assessment Tool: WILLARD-7 Assessment 14712 Review of Systems Const Denies body aches, Denies chills, Denies excessive sweating, Denies fatigue, Denies fever(s) and Denies headache(s) Eyes Denies blurry vision ENT Denies dysphagia, Denies vertigo, Denies dizziness, Denies headache(s), Denies hearing loss and Denies tinnitus Card Denies chest pain, Denies chest pain with activity, Denies syncope, Denies irregular heart rhythm and Denies dyspnea Resp Denies chest congestion, Denies cough, Denies hemoptysis, Denies dyspnea and Denies wheezing GI Denies abdominal pain, Denies melena, Denies hematochezia, Denies coffee ground emesis, Denies dysphagia, Denies diarrhea, Denies nausea and Denies vomiting Denies difficulty urinating, Denies dysuria, Denies urinary frequency, Denies urinary hesitancy and Denies urinary urgency Musc Denies arthralgias, Denies limited range of motion, Denies muscle cramps and Denies muscle weakness Skin/Breast Denies rash and Denies skin ulcer Neuro Denies Abnormal speech present, Denies confusion, Denies vertigo, Denies dizziness, Denies syncope, Denies headache(s), Denies memory loss and Denies seizure-like activity Psych Denies anxiety, Denies confusion, Denies depression, Denies memory loss, Denies panic attacks and Denies paranoia Endo Denies excessive sweating, Denies fatigue, Denies flushing, Denies polydipsia and Denies polyuria Aller/Immun Denies wheezing Physical exam (Primary Care) Vital Signs: Last Vital Signs Temp 97.3 F 12/04/24 13:46 Pulse 74 12/04/24 13:46 BP 140/82 H 12/04/24 13:46 Pulse Ox 95 12/04/24 13:46 Oxygen Delivery Method Room Air 12/04/24 13:46 BMI result Body Mass Index 33.8 BMI Assessment/Plan discussion: High BMI High, discussed plan: lifestyle, weight reduction, dietary and physical activity Tobacco/Smoking Status: Tobacco use Status Tobacco use date assessed 12/04/24 12/04/24 13:47 Patient Tobacco Use Status Current everyday Tobacco 12/04/24 13:59 Tobacco use type Cigarette 12/04/24 13:59 e-Cigarette/Vaping Use Never Used 12/04/24 13:59 Are you ready to quit: No Tobacco cessation counseling provided: Yes Items discussed: Nicotine replacement Relapse Prevention: discussed the importance of a supportive environment, discussed negative mood or depression after quitting, weight gain after smoking is common and discussed dietary, exercise and/or lifestyle changes Number of minutes spent counselin CPT code: 92556 - 4-10 Minutes PHQ-9: PHQ-9 Score PHQ-9: Total score 9 12/04/24 13:57 Depression Screening Interpretation: Positive Thrive Assessment: Date of Thrive Assessment Date Thrive assessed 12/04/24 12/04/24 13:51 Currently or been in a relationship where the following occur: No concerns reported Const Other: OBESE General: cooperative, comfortable, no acute distress, alert and awake; No confusion Orientation/consciousness: oriented to person, oriented to place, patient oriented x3 and No confusion HENMT Head: Yes normocephalic Ears: external ears normal and TM's normal bilaterally Face and sinus: No sinus tenderness Mouth: Normal oral and palatal mucosa present and tongue normal Teeth and gingiva: dentition normal and gingiva normal Throat: Yes posterior oropharynx normal, Yes tonsils normal and Yes uvula midline Eyes Conjunctivae: conjunctivae normal Sclerae: sclerae normal Pupils: Equal, round and reactive pupils present EOM: EOMs intact bilaterally Direct Ophthalmoscopy: No no photophobia Neck Neck: Yes no lymphadenopathy, No tender and Yes no JVD Thyroid: Thyroid normal Carotids: no bruits Chest Chest palpation & inspection: no tenderness Resp Effort & Inspection: normal respiratory effort, no audible wheezes, not labored and no stridor Auscultation: no crackles, no rales, no rhonchi and no wheezes Cardio Jugular venous distension: no JVD Rate: regular rate, not bradycardic and not tachycardic Rhythm: regular rhythm Bruits: no carotid bruits Peripheral pulses: Peripheral pulses 2+ throughout GI Inspection: Yes normal to inspection, No abdominal wall ecchymosis and No vi sible herniation Palpation (GI): Soft to palpation, nontender, no guarding, not rigid and No hepatosplenomegaly present Auscultation: normoactive bowel sounds General: Yes no CVA tenderness Back/Spine/Pelvis Back: no CVA tenderness and No back tenderness Cervical Spine: cervical ROM normal Thoracic/Lumbar Spine: thoracic and lumbar spine normal to inspection, straight leg raise negative bilaterally, No thoraco-lumbar ROM limited and No lumbar spinal tenderness Skin Lesions: no lesions Rashes: no rashes Wounds: no wounds Neuro General: oriented to person, oriented to place, patient oriented x3, CN's II-XI intact bilaterally and No confusion Cranial nerves: Yes Equal, round and reactive pupils present and Yes Normal accommodation reflex present Cognition (Neuro): normal cognition Speech: No Abnormal speech present Gait exam (Neuro): Normal gait present Motor exam (neuro): 5/5 motor strength present throughout Extrem Right upper extremity: full ROM; no cyanosis Left upper extremity: full ROM; no cyanosis Right lower extremity: no edema Left lower extremity: no edema Psych Appearance: grossly normal Mental Status: mental status grossly normal Affect: normal affect Attitude: cooperative Thought process: Normal thought process present Coding Level of Care Code Est Pt Prev Care 40-64y(73738) Diagnoses Annual physical exam Z00.00 Class 1 obesity E66.811 Tubular adenoma of colon D12.6 Moderately severe major depressive disorder, single episode F32.2 Mixed hyperlipidemia E78.2 Hyperlipidemia type: mixed hyperlipidemia Essential hypertension I10 Hypertension type: essential hypertension Impaired glucose metabolism R73.09 Lumbar disc disease with radiculopathy M51.16 BANG (obstructive sleep apnea) G47.33 Tobacco dependence F17.200 Additional Codes WILLARD-7 Assessment Billing - WILLARD-7 Assessment Tool: WILLARD-7 Assessment 25185 ([id number]) PHQ-9 - 17948 - PHQ-9 Billing: Yes ([id number]) Vital Signs *Quality* - CPT code: 92629 - 4-10 Minutes ([id number]) Assessment & Plan Assessment & Plan (1) Annual physical exam: Code(s): Z00.00 - Encounter for general adult medical examination without abnormal findings Category: Medical Plan: As per HPI (2) Class 1 obesity: Code(s): E66.811 - Obesity, class 1 Category: Medical Plan: Patient does understand his BMI is over 30 will try to work on being more physically active and adapting to better eating habits to reduce his weight. Of note he is status post gastric sleeve to unfortunately has gained weight since his surgery. He is interested in trying Zepbound GLP 1 therapy to help him lose weight and try to control his sleep apnea. (3) Tubular adenoma of colon: Code(s): D12.6 - Benign neoplasm of colon, unspecified Category: Medical Plan: Patient has a history of tubular adenoma polyp on colonoscopy in 2019, need a repeat in 5 years. (4) Moderately severe major depressive disorder, single episode: Code(s): F32.2 - Major depressive disorder, single episode, severe without psychotic features Category: Medical Plan: Patient has a history depression, continues on Celexa 40 mg with decent affect. (5) HLD (hyperlipidemia): Code(s): E78.5 - Hyperlipidemia, unspecified Category: Medical Qualifiers: Hyperlipidemia type: mixed hyperlipidemia Qualified Code(s): E78.2 - Mixed hyperlipidemia Plan: Patient has a history of hyperlipidemia, was taken off of lovastatin after his bariatric surgery, unfortunately has not had gotten repeat labs. Will recheck fasting lipid panel in if LDL above 130 will consider starting cholesterol medication again. (6) HTN (hypertension): Code(s): I10 - Essential (primary) hypertension Category: Medical Qualifiers: Hypertension type: essential hypertension Qualified Code(s): I10 - Essential (primary) hypertension Plan: Patient's blood pressure elevated today in office. Will restart losartan 50 mg and advised patient to monitor blood pressure. He will try to work on lifestyle modifications and reducing his weight. Goal blood pressures to be below 140/90 (7) Impaired glucose metabolism: Code(s): R73.09 - Other abnormal glucose Category: Medical Plan: Patient has a history of impaired glucose metabolism, after his bariatric french rgery his sugars stabilized. Unfortunately has gained weight since last office visit will recheck his A1c and fasting blood sugar (8) Lumbar disc disease with radiculopathy: Code(s): M51.16 - Intervertebral disc disorders with radiculopathy, lumbar region Category: Medical Plan: Patient has chronic low back pain and was seeing [facility] and was on Belbuca 450 mcg for his pain management. He unfortunately was unable to perform urine drug screen and was discharged from pain management. Patient will take this is an opportunity to stay off of opiates in use NSAID in muscle relaxer for his mainstay pain relief. (9) BANG (obstructive sleep apnea): Code(s): G47.33 - Obstructive sleep apnea (adult) (pediatric) Category: Medical Plan: He has not been able to tolerate the CPAP mask and has not been as using his CPAP machine at all lately For obstructive sleep apnea, the patient is interested in trying Zepbound, an injectable medication that may aid in weight loss and improve sleep apnea symptoms. (10) Tobacco dependence: Code(s): F17.200 - Nicotine dependence, unspecified, uncomplicated Category: Medical Plan: Patient does understand he needs to quit smoking though has found it very difficult to do so. Offered him nicotine replacement though he declines at this time. Orders: Orders Hemoglobin A1c 12/04/24 R73.09 - Other abnormal glucose Prostate Specific Antigen Scr 12/04/24 G47.33 - Obstructive sleep apnea (adult) (pediatric), Z12.5 - Encounter for screening for malignant neoplasm of prostate, Z99.89 - Dependence on other enabling machines and devices Comprehensive [place]. Panel Fast 12/04/24 R73.09 - Other abnormal glucose Lipid Panel 12/04/24 E78.2 - Mixed hyperlipidemia Microalbumin, Random (w Creat) 12/04/24 I10 - Essential (primary) hypertension Complete Blood Count no Diff 12/04/24 I10 - Essential (primary) hypertension Referrals Gastroenterology Referral D12.6 - Benign neoplasm of colon, unspecified Medications: New losartan 50 mg PO DAILY 90 tabs 1RF 90 days I10 - Essential (primary) hypertension tirzepatide (weight loss) (Zepbound) for 4 weeks 2.5 mg (0.5 mL) subcut QWEEK 2 mL 0RF 4 weeks E66.811 - Obesity, class 1, G47.33 - Obstructive sleep apnea (adult) (pediatric), Z99.89 - Dependence on other enabling machines and devices celecoxib (Celebrex) 200 mg PO DAILY 30 caps 1RF 30 days M51.16 - Intervertebral disc disorders with radiculopathy, lumbar region
== END 2024-12-04 14:19 | disposition home or self-care (01) ==
LOC: HO.HMCH 13:42
PROVIDERS: PCP Physician Assistant; Visit Provider Physician Assistant
DX: Z00.00 Encounter for general adult medical examination without abnormal findings (principal); E66.811 Obesity, class 1; Z68.33 Body mass index [BMI] 33.0-33.9, adult; F32.2 Major depressive disorder, single episode, severe without psychotic features; D12.6 Benign neoplasm of colon, unspecified; E78.2 Mixed hyperlipidemia; I10 Essential (primary) hypertension; R73.09 Other abnormal glucose; M51.16 Intervertebral disc disorders with radiculopathy, lumbar region; G47.33 Obstructive sleep apnea (adult) (pediatric); F17.200 Nicotine dependence, unspecified, uncomplicated

== ENCOUNTER → 2024-12-04 13:41 | Outpatient (BNVA) | payer OTHER, SELFPAY | PROVIDERS: PCP Physician Assistant; Visit Provider Physician Assistant | DX: Z00.00 Encounter for general adult medical examination without abnormal findings (principal); E66.811 Obesity, class 1; Z68.33 Body mass index [BMI] 33.0-33.9, adult; F32.2 Major depressive disorder, single episode, severe without psychotic features; E78.2 Mixed hyperlipidemia; I10 Essential (primary) hypertension; R73.09 Other abnormal glucose; M51.16 Intervertebral disc disorders with radiculopathy, lumbar region; G47.33 Obstructive sleep apnea (adult) (pediatric); F17.210 Nicotine dependence, cigarettes, uncomplicated; Z86.0101 Personal history of adenomatous and serrated colon polyps; Z79.899 Other long term (current) drug therapy; Z13.31 Encounter for screening for depression; Z13.39 Encounter for screening examination for other mental health and behavioral disorders | CPT/HCPCS: 96127; 99396 ==